=== PATIENT | male | born 1930 | race Caucasian/White ===

== ENCOUNTER 2017-05-10 10:26 | Emergency (ER) | payer MEDICARE ==
[2017-05-10] MEDS ORDERED: Sodium Chloride 0.9% 10 ML Syringe FLUSH PRN (10:39)
[2017-05-10] MEDS ORDERED: Aspirin 81 MG Tab.Chew PO ONE (10:44)
[2017-05-10 10:52] VITALS: BP 158/71
--- NOTE | 2017-05-10 11:39 | CR ---
Chest: Frontal view of the chest was obtained utilizing portable technique. Comparison: Previous portable chest x-ray of 11/02/16. Heart size is normal. Mild tortuosity of the thoracic aorta is seen. Lungs are clear. Sternotomy wires are seen. Minimal scar is seen within the left lung base. Impression: 1. Nothing acute is identified on frontal chest x-ray. Diagnostic code #2
--- NOTE | 2017-05-10 11:41 | EDM.PDOC ---
ED HPI GENERAL MEDICAL PROBLEM - General Chief Complaint: Chest Pain Stated Complaint: CHEST PAIN Time Seen by Provider: 05/10/17 10:37 Source of Information: Reports: Patient, RN Notes Reviewed - History of Present Illness INITIAL COMMENTS - FREE TEXT/NARRATIVE: 87-year-old male with left anterior chest discomfort this morning. It was moderate intensity for about 45 minutes and subsequently has been fairly mild. There has been no radiation of the pain. He does have history of coronary artery disease. He has not been coughing any more than usual. No recent fever or chills. No abdominal discomfort nausea vomiting or diaphoresis. He states he does get short of breath with exertion and also did have some shortness of breath this morning associated with the more severe discomfort. That now is better. Left Chest Pain Score (Numeric/FACES): 3 - Related Data Allergies Allergy/AdvReac Type Severity Reaction Status Date / Time meperidine HCl [From Demerol] Allergy Cannot Verified 05/10/17 10:29 Remember Home Meds: Home Meds Albuterol [Ventolin HFA] 2 puff INH Q4H PRN 05/10/17 [History] Aspirin [Halfprin] 81 mg PO DAILY 05/10/17 [History] Desipramine HCl 75 mg PO DAILY 05/10/17 [History] Finasteride 5 mg PO DAILY 05/10/17 [History] Galantamine Hbr [Galantamine HBr] 8 mg PO BID 05/10/17 [History] Isosorbide Mononitrate [Isosorbide Mononitrate ER] 30 mg PO DAILY 05/10/17 [ History] Levothyroxine 75 mcg PO ACBREAKFAST 05/10/17 [History] Lisinopril 20 mg PO DAILY 05/10/17 [History] Metoprolol Succinate 50 mg PO DAILY 05/10/17 [History] Rosuvastatin Calcium 10 mg PO DAILY 05/10/17 [History] Tamsulosin HCl 0.4 mg PO BID 05/10/17 [History] Timolol Maleate [Timoptic 0.5% Ophth Soln] 5 ml EYELF DAILY 05/10/17 [History] Zolpidem [Ambien] 5 mg PO BEDTIME PRN 05/10/17 [History] amLODIPine [Norvasc] 10 mg PO DAILY 05/10/17 [History] Past Medical History HEENT History: Reports: Cataract, Impaired Vision Other HEENT History: glasses Cardiovascular History: Reports: Bypass, CAD, High Cholesterol, Hypertension, Stents Respiratory History: Reports: COPD Gastrointestinal History: Reports: GI Bleed Genitourinary History: Reports: BPH, Chronic Renal Insuffiency, Urinary Incontinence Musculoskeletal History: Reports: Back Pain, Chronic, Osteoarthritis Neurological History: Reports: Alzheimers Disease Psychiatric History: Reports: Dementia Hematologic History: Reports: Blood Transfusion(s) - Infectious Disease History Infectious Disease History: Reports: Chicken Pox, Measles, Mumps - Past Surgical History Cardiovascular Surgical History: Reports: Coronary Artery Bypass Musculoskeletal Surgical History: Reports: Knee Replacement Social & Family History - Family History Family Medical History: Noncontributory - Tobacco Use Smoking Status *Q: Former Smoker Years of Tobacco use: 10 Packs/Tins Daily: 1 Used Tobacco, but Quit: Yes Month Tobacco Last Used: 1952 Second Hand Smoke Exposure: No - Caffeine Use Caffeine Use: Reports: Coffee - Alcohol Use Days Per Week of Alcohol Use: 3 Number of Drinks Per Day: 1 Total Drinks Per Week: 3 - Recreational Drug Use Recreational Drug Use: No - Living Situation & Occupation Living situation: Reports: Occupation: Retired ED ROS GENERAL - Review of Systems Review Of Systems: See Below Constitutional: Denies: Fever, Chills, Diaphoresis HEENT: Denies: Throat Pain Respiratory: Reports: Shortness of Breath. Denies: Cough (Now better) Cardiovascular: Reports: Chest Pain. Denies: Palpitations (L better), Syncope GI/Abdominal: Denies: Abdominal Pain, Nausea, Vomiting Musculoskeletal: Denies: Neck Pain, Shoulder Pain, Arm Pain, Joint Swelling Skin: Reports: No Symptoms Neurological: Reports: Dizziness (Mild, now better). Denies: Trouble Speaking, Difficulty Walking ED EXAM, GENERAL - Physical Exam Exam: See Below General Appearance: Alert, No Apparent Distress Eye Exam: Bilateral Eye: PERRL Throat/Mouth: Normal Inspection, Normal Oropharynx Head: Atraumatic. No: Facial Swelling Neck: Supple, Full Range of Motion Respiratory/Chest: No Respiratory Distress, Lungs Clear, Normal Breath Sounds, Chest Non-Tender Cardiovascular: Regular Rate, Rhythm GI/Abdominal: Soft, Non-Tender. No: Guarding Back Exam: No: CVA Tenderness (L), CVA Tenderness (R) Extremities: Normal Inspection. No: Leg Pain, Redness Neurological: Alert, Oriented, No Motor/Sensory Deficits Skin Exam: Warm, Dry, Normal Color Course - Vital Signs Last Recorded V/S: Last Vital Signs Temp 97.4 F 05/10/17 10:32 Pulse 56 L 05/10/17 15:19 Resp 18 05/10/17 15:19 BP 158/71 H 05/10/17 10:52 Pulse Ox 20 L 05/10/17 15:19 - Orders/Labs/Meds Orders: Active Orders 24 hr Category Date Time Status EKG 12 Lead [EKG Documentation Completion] [RC] STAT Care 05/10/17 10:39 Active Peripheral IV Care [RC] . DIRECTED Care 05/10/17 10:39 Active Peripheral IV Insertion Adult [OM.PC] Stat Oth 05/10/17 10:39 Ordered Labs: Laboratory Tests 05/10/17 05/10/17 05/10/17 Range/Units 10:58 10:58 10:58 WBC 8.37 (4.23-9.07) K/mm3 RBC 3.60 L (4.63-6.08) M/mm3 Hgb 12.4 L (13.7-17.5) gm/L Hct 38.8 L (40.1-51.0) % MCV 107.8 H (79.0-92.2) fl MCH 34.4 H (25.7-32.2) pg MCHC 32.0 L (32.2-35.5) g/dl RDW Std Deviation 57.0 H (35.1-43.9) fL Plt Count 164 (163-337) K/mm3 MPV 10.9 (9.4-12.3) fl Neut % (Auto) 30.2 L (34.0-67.9) % Lymph % (Auto) 66.9 H (21.8-53.1) % [place] % (Auto) 2.2 L (5.3-12.2) % Eos % (Auto) 0.4 L (0.8-7.0) Baso % (Auto) 0.1 (0.1-1.2) % Neut # (Auto) 2.53 (1.78-5.38) K/mm3 Lymph # (Auto) 5.60 H (1.32-3.57) K/mm3 [place] # (Auto) 0.18 L (0.30-0.82) K/mm3 Eos # (Auto) 0.03 L (0.04-0.54) K/mm3 Baso # (Auto) 0.01 (0.01-0.08) K/mm3 Manual Slide Review Abnormal smear Sodium 140 (136-145) mEq/L Potassium 3.9 (3.5-5.1) mEq/L Chloride 103 (98-107) mEq/L Carbon Dioxide 29 (21-32) mEq/L Anion Gap 11.9 (5-15) BUN 16 (7-18) mg/dL Creatinine 1.1 (0.7-1.3) mg/dL Est Cr Clr Drug Dosing TNP Estimated GFR (MDRD) > 60 (>60) mL/min BUN/Creatinine Ratio 14.5 (14-18) Glucose 134 H (83-115) mg/dL Calcium 9.0 (8.5-10.1) mg/dL Total Bilirubin 0.4 (0.2-1.0) mg/dL AST 17 (15-37) U/L ALT 18 (16-63) U/L Alkaline Phosphatase 94 (46-116) U/L Troponin I 0.025 (0.00-0.056) ng/mL B-Natriuretic Peptide 191 H (0-100) pg/mL Total Protein 7.1 (6.4-8.2) g/dl Albumin 3.4 (3.4-5.0) g/dl Globulin 3.7 gm/dL Albumin/Globulin Ratio 0.9 L (1-2) 05/10/17 Range/Units 13:36 WBC (4.23-9.07) K/mm3 RBC (4.63-6.08) M/mm3 Hgb (13.7-17.5) gm/L Hct (40.1-51.0) % MCV (79.0-92.2) fl MCH (25.7-32.2) pg MCHC (32.2-35.5) g/dl RDW Std Deviation (35.1-43.9) fL Plt Count (163-337) K/mm3 MPV (9.4-12.3) fl Neut % (Auto) (34.0-67.9) % Lymph % (Auto) (21.8-53.1) % [place] % (Auto) (5.3-12.2) % Eos % (Auto) (0.8-7.0) Baso % (Auto) (0.1-1.2) % Neut # (Auto) (1.78-5.38) K/mm3 Lymph # (Auto) (1.32-3.57) K/mm3 [place] # (Auto) (0.30-0.82) K/mm3 Eos # (Auto) (0.04-0.54) K/mm3 Baso # (Auto) (0.01-0.08) K/mm3 Manual Slide Review Sodium (136-145) mEq/L Potassium (3.5-5.1) mEq/L Chloride (98-107) mEq/L Carbon Dioxide (21-32) mEq/L Anion Gap (5-15) BUN (7-18) mg/dL Creatinine (0.7-1.3) mg/dL Est Cr Clr Drug Dosing Estimated GFR (MDRD) (>60) mL/min BUN/Creatinine Ratio (14-18) Glucose (83-115) mg/dL Calcium (8.5-10.1) mg/dL Total Bilirubin (0.2-1.0) mg/dL AST (15-37) U/L ALT (16-63) U/L Alkaline Phosphatase (46-116) U/L Troponin I 0.021 (0.00-0.056) ng/mL B-Natriuretic Peptide (0-100) pg/mL Total Protein (6.4-8.2) g/dl Albumin (3.4-5.0) g/dl Globulin gm/dL Albumin/Globulin Ratio (1-2) Meds: Medications Discontinued Medications Generic Name Dose Route Start Last Admin Trade Name Freq PRN Reason Stop Dose Admin Aspirin 324 mg 05/10/17 10:44 05/10/17 10:56 Aspirin PO 05/10/17 10:45 324 mg ONETIME ONE Administration Sodium Chloride 10 ml 05/10/17 10:39 05/10/17 10:58 Saline Flush FLUSH 10 ml ASDIRECTED PRN Administration Keep Vein Open - Re-Assessments/Exams Free Text/Narrative Re-Assessment/Exam: 05/10/17 13:22 Initial troponin came in at 0.025. He's been resting comfortably while here in the ED awaiting lab work. Chest x-ray unremarkable. We'll do a repeat troponin. 05/10/17 14:34 Repeat troponin 0.021. He probably does have a small troponin leak. He is been in sinus rhythm, occasional PVCs. Blood pressures been good. He continues to be pain-free while here in the ED. Therefore we will discharge him home at this time. Discharge instructions as documented Departure - Departure Time of Disposition: 14:36 Disposition: Home, Self-Care 01 Condition: Fair Clinical Impression: Atypical chest pain Instructions: Chest Wall Pain, [id number] Referrals: Steve Reynolds MD [Primary Care Provider] - Forms: ED Department Discharge Additional Instructions: Rest, drink plenty of water to maintain hydration, continue current medications as prescribed, follow up with Dr. Reynolds later this week or early next week. Call clinic for appointment. Return to ED if symptoms worsening in any way - My Orders Last 24 Hours: My Active Orders 05/10/17 10:39 EKG 12 Lead [EKG Documentation Completion] [RC] STAT Peripheral IV Care [RC] . DIRECTED Peripheral IV Insertion Adult [OM.PC] Stat - Assessment/Plan Last 24 Hours: My Active Orders 05/10/17 10:39 EKG 12 Lead [EKG Documentation Completion] [RC] STAT Peripheral IV Care [RC] . DIRECTED Peripheral IV Insertion Adult [OM.PC] Stat
== END 2017-05-10 14:58 | disposition home or self-care (01) ==
LOC: JD.ED 10:26 → SUPCPDRO 10:26 → JD.ED 14:58
DX: R07.89 Other chest pain (principal); I12.9 Hypertensive chronic kidney disease with stage 1 through stage 4 chronic kidney disease, or unspecified chronic kidney disease; N18.9 Chronic kidney disease, unspecified; I25.10 Atherosclerotic heart disease of native coronary artery without angina pectoris; J44.9 Chronic obstructive pulmonary disease, unspecified; G30.9 Alzheimer's disease, unspecified; F02.80 Dementia in other diseases classified elsewhere, unspecified severity, without behavioral disturbance, psychotic disturbance, mood disturbance, and anxiety; M19.90 Unspecified osteoarthritis, unspecified site; Z95.1 Presence of aortocoronary bypass graft; Z96.659 Presence of unspecified artificial knee joint; Z87.891 Personal history of nicotine dependence; Z79.899 Other long term (current) drug therapy; Z79.82 Long term (current) use of aspirin; Z88.6 Allergy status to analgesic agent
CPT/HCPCS: 36415; 71010; 80053; 83880; 84484; 85025; 93005; 99285; A9270; J7050; 99284

== ENCOUNTER 2017-08-16 07:09 | Day surgery (SDC) | payer MEDICARE ==
[~2017-08-16 07:09] MED LIST: Lactated Ringers 1,000 ML IV SCH; Lidocaine 1%/Sod Bicarbonate in NS 8.4% 1 ML Syringe IV PRN; Sodium Chloride 0.9% 10 ML Syringe FLUSH PRN
[2017-08-16] MEDS ORDERED: Lidocaine 1% 30 ML SDV ONE (07:11)
[2017-08-16] MEDS ORDERED: Heparin Sodium 5,000 Units/ML Vial ONE (07:11)
[2017-08-16] MEDS ORDERED: Propofol 200 MG/20 ML SDV ONE (07:42)
[2017-08-16] MEDS ORDERED: Lidocaine 1% 4 ML ONE (07:42)
[2017-08-16] MEDS ORDERED: fentaNYL 100 MCG/2 ML SDV ONE (07:42)
--- NOTE | 2017-08-16 07:42 | PCM.PREANE ---
Preanesthetic Assessment - Anesthesia/Transfusion/Family Hx Anesthesia History: Prior Anesthesia Without Reaction Family History of Anesthesia Reaction: No Transfusion History: No Prior Transfusion(s) - Review of Systems General: Fatigue Pulmonary: Shortness of Breath Cardiovascular: Chest Pain (indigestion) Gastrointestinal: Abdominal Pain (sometimes) Neurological: Seizure (apparently from Demerol), Other (dementia) Other: Reports: None, Thyroid Problems, Anxiety - Physical Assessment NPO Status Date: 08/15/17 (sip with pills this am) NPO Status Time: 11:59 Pulse: 57 O2 Sat by Pulse Oximetry: 93 Respiratory Rate: 16 Blood Pressure: 151/59 Temperature: 98.6 F Height: 5 ft 6 in Weight: 81.647 kg ASA Class: 3 Mental Status: Alert & Oriented x3 Airway Class: Mallampati = 1 Dentition: Reports: Dentures (top), Broken Tooth/Teeth, Missing Tooth/Teeth Thyro-Mental Finger Breadths: 3 Mouth Opening Finger Breadths: 3 ROM/Head Extension: Full Lungs: Clear to Auscultation, Normal Respiratory Effort Cardiovascular: Regular Rate, Regular Rhythm - Lab Values: 08/03 BUN 18 Cr 1.06 Lytes WNL HGB 11.2 PLT 106 - Imaging/EKG Impressions: 01/01 echo- EF 40% 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 - Allergies Allergies/Adverse Reactions: Allergies Allergy/AdvReac Type Severity Reaction Status Date / Time meperidine HCl [From Demerol] Allergy Cannot Verified 08/13/17 11:45 Remember - Blood Blood Available: No - Anesthesia Plan Beta Treasure: Metoprolol Med Last Dose Date: 08/16/17 Med Last Dose Time: 06:00 - Acknowledgements Anesthesia Type Planned: MAC Pt an Appropriate Candidate for the Planned Anesthesia: Yes Alternatives and Risks of Anesthesia Discussed w Pt/Guardian: Yes Pt/Guardian Understands and Agrees with Anesthesia Plan: Yes PreAnesthesia Questionnaire HEENT History: Reports: Cataract, Impaired Vision Other HEENT History: glasses and dentures Cardiovascular History: Reports: Bypass, CAD, Heart Failure, High Cholesterol, Hypertension, SC, Stents Respiratory History: Reports: COPD, Sleep Apnea Gastrointestinal History: Reports: GI Bleed Genitourinary History: Reports: BPH, Chronic Renal Insuffiency, Urinary Incontinence [employer] History: Reports: None Musculoskeletal History: Reports: Back Pain, Chronic, Osteoarthritis Neurological History: Reports: Alzheimers Disease, Seizure (denies) Psychiatric History: Reports: Dementia Other Psychiatric History: insomnia Endocrine/Metabolic History: Reports: Hypothyroidism Hematologic History: Reports: Blood Transfusion(s) Immunologic History: Reports: None Oncologic (Cancer) History: Reports: None Dermatologic History: Reports: Other (See Below) Other Dermatologic History: right latter day skin lesion - Infectious Disease History Infectious Disease History: Reports: Chicken Pox, Measles, Mumps - Past Surgical History Head Surgeries/Procedures: Reports: None HEENT Surgical History: Reports: Adenoidectomy, Tonsillectomy Cardiovascular Surgical History: Reports: Coronary Artery Bypass Respiratory Surgical History: Reports: None GI Surgical History: Reports: Appendectomy, Colonoscopy, EGD, Hernia Repair/ Other Female Surgical History: Reports: None Male Surgical History: Reports: None Neurological Surgical History: Reports: None Musculoskeletal Surgical History: Reports: Knee Replacement Other Musculoskeletal Surgeries/Procedures:: right knee Oncologic Surgical History: Reports: None - SUBSTANCE USE Smoking Status *Q: Former Smoker Tobacco Use Within Last Twelve Months: Cigarettes Second Hand Smoke Exposure: No Days Per Week of Alcohol Use: 3 Number of Drinks Per Day: 1 Total Drinks Per Week: 3 Recreational Drug Use History: No - HOME MEDS Home Medications: Home Meds Albuterol [Ventolin HFA] 2 puff INH Q4H PRN 05/10/17 [History] Aspirin [Halfprin] 81 mg PO DAILY 05/10/17 [History] Isosorbide Mononitrate [Isosorbide Mononitrate ER] 30 mg PO DAILY 05/10/17 [ History] Lisinopril 20 mg PO DAILY 05/10/17 [History] Metoprolol Succinate 50 mg PO DAILY 05/10/17 [History] Tamsulosin HCl 0.4 mg PO BID 05/10/17 [History] Timolol Maleate [Timoptic 0.5% Ophth Soln] 1 drop EYELF DAILY 05/10/17 [History] amLODIPine [Norvasc] 10 mg PO DAILY 05/10/17 [History] Desipramine HCl [Norpramin] 75 mg PO BEDTIME 08/13/17 [History] Durezol 1 drop EYEBOTH QID 08/13/17 [History] Galantamine Hbr [Razadyne] 8 mg PO BID 08/13/17 [History] Levothyroxine [Synthroid] 88 mcg PO DAILY 08/13/17 [History] Nitroglycerin [Nitrostat] 0.4 mg SL Q5M PRN 08/13/17 [History] Nystatin [Nystatin Crm] 1 applic TOP BID PRN 08/13/17 [History] - CURRENT (IN HOUSE) MEDS Current Meds: Current Medications Lactated Ringer's (Ringers, Lactated) 1,000 mls @ 125 mls/hr IV ASDIRECTED GANGA Stop: 08/16/17 23:00 Lidocaine/Sodium Bicarbonate (Buffered Lidocaine 1% In Ns 8.4%) 0.25 ml IV ONETIME PRN PRN Reason: Prior to IV Start Stop: 08/16/17 18:00 Sodium Chloride (Saline Flush) 10 ml FLUSH ASDIRECTED PRN PRN Reason: Keep Vein Open Stop: 08/16/17 18:00 Discontinued Medications Fentanyl (Sublimaze) Confirm Administered Dose 100 mcg .ROUTE .STK-MED ONE Stop: 08/16/17 07:43 Heparin Sodium (Porcine) (Heparin Sodium) Confirm Administered Dose 5,000 units .ROUTE .STK-MED ONE Stop: 08/16/17 07:12 Lidocaine HCl (Xylocaine-Mpf 1%) Confirm Administered Dose 4 mls @ as directed .ROUTE .STK-MED ONE Stop: 08/16/17 07:43 Lidocaine HCl (Xylocaine-Mpf 1%) Confirm Administered Dose 30 ml .ROUTE .STK- MED ONE Stop: 08/16/17 07:12 Propofol (Diprivan 20 Ml) Confirm Administered Dose 200 mg .ROUTE .STK-MED ONE Stop: 08/16/17 07:43
--- NOTE | 2017-08-16 08:44 | PCM.OPNOTE ---
- General Post-Op/Procedure Note Date of Surgery/Procedure: 08/16/17 Operative Procedure(s): bone marrow bx and aspiration Pre Op Diagnosis: CLL Post-Op Diagnosis: Same Anesthesia Technique: MAC Primary Surgeon: Sanya Douglass EBL in mLs: 10 Complications: None Condition: Good
[2017-08-16] MEDS ORDERED: Ondansetron 4 MG/2 ML SDV IVPUSH PRN (08:45)
--- NOTE | 2017-08-16 08:45 | PCM48HPAN ---
Post Anesthesia Note - EVALUATION WITHIN 48HRS OF ANESTHETIC Vital Signs in Normal Range: Yes Patient Participated in Evaluation: Yes Respiratory Function Stable: Yes (O2 at 1 L until more awake. ) Airway Patent: Yes Cardiovascular Function Stable: Yes Hydration Status Stable: Yes Pain Control Satisfactory: Yes Nausea and Vomiting Control Satisfactory: Yes Mental Status Recovered: Yes
[2017-08-16 08:49] VITALS: BP 108/52
--- NOTE | 2017-08-16 14:48 | OR ---
DATE OF OPERATION: 08/16/2017 SURGEON: Sanya Douglass MD PREOPERATIVE DIAGNOSIS: Chronic lymphocytic leukemia. POSTOPERATIVE DIAGNOSIS: Chronic lymphocytic leukemia. OPERATION PERFORMED: Bone marrow aspirate and biopsy done under IV sedation, local anesthetic, and 1% Xylocaine. DESCRIPTION OF PROCEDURE: The patient was taken to the endoscopy room, placed in the left lateral position after IV sedation was given and connected to monitoring equipment. The area in question and posterior iliac spine was identified by palpation. The skin over this was prepped with sterile prep and draped off in a sterile fashion. Incision was made after local anesthetic was applied and Jamshidi needle was then inserted into the spine, and a bone marrow biopsy was 1st taken, but the tap was dry, another incision was made, and the needle was placed in a little more superior position and was able to get a good aspirate. This was aspirated in a previously prepared heparinized syringe. Pressure was then placed on the area and the patient tolerated the procedure and sent to recovery room in a stable condition. ANESTHESIA: ESTIMATED BLOOD LOSS: 10 mL. MMODAL /[id number]
== END 2017-08-16 09:30 | disposition home or self-care (01) ==
LOC: JD.SDS 07:09
PROVIDERS: ATTEND Surgery
DX: C91.10 Chronic lymphocytic leukemia of B-cell type not having achieved remission (principal); I10 Essential (primary) hypertension; E03.9 Hypothyroidism, unspecified; I50.9 Heart failure, unspecified; I25.2 Old myocardial infarction; Z95.5 Presence of coronary angioplasty implant and graft; Z88.8 Allergy status to other drugs, medicaments and biological substances; Z90.49 Acquired absence of other specified parts of digestive tract; Z98.890 Other specified postprocedural states; Z79.82 Long term (current) use of aspirin; Z79.899 Other long term (current) drug therapy; Z87.891 Personal history of nicotine dependence
CPT/HCPCS: 36415; 38221; 85007; 85025; 85027; 85045; 88184; 88185; 88237; 88264; 88285; 88305; 88311; 88313; 88342; J1644; J3010; J7120; 01112; J2704

== ENCOUNTER 2017-10-14 10:52 | Inpatient (IN) | payer MEDICARE ==
[2017-10-14] MEDS ORDERED: Albuterol 6.7 GM Inhaler INH PRN (12:21)
[2017-10-14] MEDS ORDERED: Non-Formulary Medication 1 Each (Nitroglycerin [Nitrostat] 0.4 MG) SL PRN (12:21)
[2017-10-14] MEDS ORDERED: Non-Formulary Medication 1 Each (Nystatin 1 APPLIC) TOP PRN (12:21)
[2017-10-14] MEDS ORDERED: Temazepam 15 MG Cap PO PRN ×2 (12:22→18:41)
[2017-10-14] MEDS ORDERED: Promethazine 12.5 MG in Sodium Chloride 0.9% 50 ML IV PRN (12:22)
[2017-10-14] MEDS ORDERED: Acetaminophen/HYDROcodone 325-5 MG Tab PO PRN (12:22)
[2017-10-14] MEDS ORDERED: Albuterol/Ipratropium 3.0-0.5 MG/3 ML Neb Soln NEB PRN (12:22)
[2017-10-14] MEDS ORDERED: Docusate Sodium 100 MG Cap PO PRN (12:22)
[2017-10-14] MEDS ORDERED: LORazepam 2 MG/ML SDV IV PRN (12:22)
[2017-10-14] MEDS ORDERED: HYDROmorphone 0.5 MG/0.5 ML Syringe IVPUSH PRN (12:22)
[2017-10-14] MEDS ORDERED: Ondansetron 4 MG/2 ML SDV IV PRN (12:22)
[2017-10-14] MEDS ORDERED: Bisacodyl 5 MG Tab PO PRN (12:22)
[2017-10-14] MEDS ORDERED: Acetaminophen 325 MG Tab PO PRN (12:22)
[2017-10-14] MEDS ORDERED: Polyethylene Glycol 3350 Powder 17 GM Packet PO PRN (12:22)
[2017-10-14] MEDS ORDERED: Levofloxacin/Dextrose 5%-Water 500 MG in Premix Bag 1 BAG IV ONE (12:43)
[2017-10-14] MEDS ORDERED: hydrALAZINE 20 MG/ML SDV IVPUSH PRN (12:45)
[2017-10-14] MEDS ORDERED: Metoprolol Tartrate 5 MG/5 ML SDV IVPUSH PRN (12:45)
[2017-10-14] MEDS ORDERED: Saccharomyces Boulardii (Probiotic) 250 MG Cap PO STA (12:45)
[2017-10-14] MEDS ORDERED: Vancomycin 1 GM, Vancomycin 500 MG in Sodium Chloride 0.9% 500 ML IV SCH (12:45)
[2017-10-14] MEDS: DUREZOL EYEBOTH SCH ×3 (14:33→20:50)
[2017-10-14] MEDS: Sodium Chloride 0.9% 1,000 ML IV SCH (14:38)
[2017-10-14] MEDS: Levofloxacin/Dextrose 5%-Water 500 MG in Premix Bag 1 BAG IV SCH (14:38)
[2017-10-14] MEDS: Saccharomyces Boulardii (Probiotic) 250 MG Cap PO SCH (14:38)
--- NOTE | 2017-10-14 15:12 | PCM.HP ---
<Valdemar Aquino - Last Filed: 10/14/17 15:49> H&P History of Present Illness - General Date of Service: 10/14/17 Source of Information: Patient, Old Records, Provider, RN, RN Notes Reviewed History Limitations: Reports: No Limitations - History of Present Illness Initial Comments - Free Text/Narative: Gwyn Barraza is an 87 yo male who was evaluated by Dr. Douglass today at [facility] for inflammation of the columnella on the nose. He was reportedly seen in clinic last week for this and also anemia, with a Hgb of 6. A MRSA screen was done, which was negative, and he was prescribed cipro and mupirocin ointment. He was seen by Dr. Reynolds for follow-up, who felt the nose was getting worse and referred him to Dr. Douglass, general surgeon. During his exam some ulceration and necrosis of the columnella were noted however the erythema of the nasal tip improved and his WBC decreased from 25,000 to 18,000. A punch biopsy was obtained by Dr. Douglass and is pending. It is reported that Dr. Douglass contacted Dr. Mcdermott, ENT, and they decided that the patient has failed outpatient treatment and should be hospitalized for IV antibiotics. This was also reportedly discussed with the patient and he agrees to the plan. Labs were obtained at [place] today: WBC 18.7. Hemoglobin 9.0. Hematocrit 30.0. He is macrocytic at 107.1. Platelet counts are low at 90. Neutrophils are elevated at 16.8 and some atypical lymphocytes are seen on the smear. Glucose is 105. BUN 15. Creatinine 1.0. EGFR is 70. Sodium is 141. Potassium 4.2. Chloride 104. CO2 is 27. Anion gap with potassium is 14. Calcium 9.1. 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 The note is somewhat confusing as there are multiple stages listed, however Dr. 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 He notes symptoms of fatigue, insomnia, and some lymph nodes in his neck. A CT scan was obtained on 02/08/[address] Taylor as: No significant change in cervical with lymphadenopathy and supraclavicular lymphadenopathy. Unfortunately, prior chest CTs are not available for comparison. However, significant axillary lymphadenopathy is noted bilaterally with associated mediastinal adenopathy. Marked increase in bulky adenopathy is noted within the retroperitoneum and mesentery since the prior examination of . Stable right renal mass lesions. Enlarged inguinal lymph nodes that contained fatty sugey. Pelvic lymphadenopathy. No osseous lesions. Benign- appearing cysts are noted on the left kidney. He carries a history of: CAD, CHF, HTN, insomnia, HLD, Alzheimer's dementia, lumbar disc herniation with radiculopathy, see Monica stage II, renal cell cancer , hypothyroidism, ischemic colitis, anemia due to GI blood loss, ROSSY, BPH with lower urinary tract symptoms, COPD. He subsequently admitted to the medical floor. His code status is DNR/DNI. His PCP is Dr. Reynolds, although Dr. Douglass has seen him most recently for this condition. As noted he is also followed closely by Dr. Romero for his lymphoma. - Related Data Allergies/Adverse Reactions: Allergies Allergy/AdvReac Type Severity Reaction Status Date / Time meperidine HCl [From Demerol] Allergy Cannot Verified 08/13/17 11:45 Remember Home Medications: Home Meds Isosorbide Mononitrate [Isosorbide Mononitrate ER] 30 mg PO DAILY 05/10/17 [ History] Lisinopril 10 mg PO DAILY 05/10/17 [History] Metoprolol Succinate 50 mg PO DAILY 05/10/17 [History] Tamsulosin HCl 0.4 mg PO BID 05/10/17 [History] Timolol Maleate [Timoptic 0.5% Ophth Soln] 1 drop EYELF DAILY 05/10/17 [History] amLODIPine [Norvasc] 10 mg PO DAILY 05/10/17 [History] Desipramine HCl [Norpramin] 75 mg PO BEDTIME 08/13/17 [History] Levothyroxine [Synthroid] 88 mcg PO DAILY 08/13/17 [History] Albuterol Sulfate [Proair Hfa] 2 puff INH Q4HR PRN 10/14/17 [History] Ciprofloxacin [Ciprofloxacin HCl] 250 mg PO BID 10/14/17 [History] Galantamine Hbr [Galantamine HBr] 8 mg PO BID 10/14/17 [History] Mupirocin Oint [Bactroban Oint] 22 gm TOP BID 10/14/17 [History] Ondansetron [Zofran] 4 mg PO Q4H PRN 10/14/17 [History] Temazepam 15 mg PO BEDTIME PRN 10/14/17 [History] Past Medical History HEENT History: Reports: Cataract, Impaired Vision Other HEENT History: glasses and dentures Cardiovascular History: Reports: Bypass, CAD, Heart Failure, High Cholesterol, Hypertension, NH, Stents Other Cardiovascular History: NH yrs ago Respiratory History: Reports: COPD, Sleep Apnea Gastrointestinal History: Reports: GI Bleed Genitourinary History: Reports: BPH, Chronic Renal Insuffiency, Urinary Incontinence [employer] History: Reports: None Musculoskeletal History: Reports: Back Pain, Chronic, Osteoarthritis Neurological History: Reports: Alzheimers Disease, Seizure Psychiatric History: Reports: Dementia Other Psychiatric History: insomnia Endocrine/Metabolic History: Reports: Hypothyroidism Hematologic History: Reports: Blood Transfusion(s) Immunologic History: Reports: None Oncologic (Cancer) History: Reports: None Dermatologic History: Reports: Other (See Below) Other Dermatologic History: right restoration skin lesion - Infectious Disease History Infectious Disease History: Reports: HWO-Nxapvcigac-Dacvsahlr Enterobacteriaceae , Measles, Mumps - Past Surgical History Head Surgeries/Procedures: Reports: None HEENT Surgical History: Reports: Adenoidectomy, Tonsillectomy Cardiovascular Surgical History: Reports: Coronary Artery Bypass Respiratory Surgical History: Reports: None GI Surgical History: Reports: Appendectomy, Colonoscopy, EGD, Hernia Repair/ Other Male Surgical History: Reports: None Neurological Surgical History: Reports: None Musculoskeletal Surgical History: Reports: Knee Replacement Other Musculoskeletal Surgeries/Procedures:: right knee Oncologic Surgical History: Reports: None Social & Family History - Family History Family Medical History: Noncontributory - Tobacco Use Smoking Status *Q: Never Smoker Years of Tobacco use: 10 Packs/Tins Daily: 1 Used Tobacco, but Quit: Yes Month Tobacco Last Used: 1952 Second Hand Smoke Exposure: No - Caffeine Use Caffeine Use: Reports: Coffee, Tea - Alcohol Use Days Per Week of Alcohol Use: 3 Number of Drinks Per Day: 1 Total Drinks Per Week: 3 - Recreational Drug Use Recreational Drug Use: No - Living Situation & Occupation Living situation: Reports: Occupation: Retired H&P Review of Systems - Review of Systems: Review Of Systems: See Below General: Reports: No Symptoms. Denies: Fever, Chills, Malaise, Weakness, Fatigue HEENT: Reports: No Symptoms, Headaches (mild that comes and goes ). Denies: Dysphasia, Ear Pain, Eye Pain, Hearing Changes, Rhinitis, Post Nasal Drip, Sore Throat, Vertigo Pulmonary: Reports: No Symptoms, Shortness of Breath (baseline ), Cough (mild ) , Sputum. Denies: Wheezing, Pleuritic Chest Pain Cardiovascular: Reports: No Symptoms. Denies: Chest Pain, Palpitations, Dyspnea on Exertion, Edema, Lightheadedness Gastrointestinal: Reports: No Symptoms. Denies: Abdominal Pain, Constipation, Diarrhea, Difficulty Swallowing, Nausea, Vomiting Genitourinary: Reports: No Symptoms. Denies: Dysuria, Frequency, Burning, Pain , Urgency Musculoskeletal: Reports: No Symptoms. Denies: Neck Pain, Shoulder Pain, Back Pain, Joint Pain, Joint Swelling Skin: Reports: No Symptoms Psychiatric: Reports: No Symptoms Neurological: Reports: No Symptoms Hematologic/Lymphatic: Reports: Anemia. Denies: Easy Bleeding, Easy Bruising Immunologic: Reports: No Symptoms Exam - Exam Exam: See Below - Vital Signs Vital Signs: Last Vital Signs Temp 97.5 F 10/14/17 11:12 Pulse 46 L 10/14/17 11:28 Resp 16 10/14/17 11:12 BP 130/53 L 10/14/17 11:28 Pulse Ox 97 10/14/17 12:30 Weight: 80.422 kg - Exam Quality Assessment: DVT Prophylaxis General: Alert, Oriented, Cooperative. No: Mild Distress HEENT: Conjunctiva Clear, EACs Clear, EOMI, Hearing Intact, Mucosa Moist & [place] , Nares Patent, Normal Nasal Septum, Posterior Pharynx Clear, Other (edema and erythema to tip of nose. Sutures in place from prior punch biopsy. Dried blood and drainage noted in right nostril. Tender to palpation. ), PERRLA Neck: Supple, Trachea Midline, Lymphadenopathy (blateral with left>right ). No : JVD, Thyromegaly Lungs: Clear to Auscultation, Normal Respiratory Effort. No: Crackles, Rales, Rhonchi, Rub, Stridor, Wheezing Cardiovascular: Regular Rate, Regular Rhythm GI/Abdominal Exam: Normal Bowel Sounds, Soft, No Distention, No Abnormal Bruit, No Mass, Pelvis Stable, Tender (Upper quadrants and LLQ. ) (Male) Exam: Deferred Rectal (Males) Exam: Deferred Back Exam: Full Range of Motion, CVA Tenderness (R) Extremities: Normal Inspection, Normal Range of Motion, Non-Tender, No Pedal Edema, Normal Capillary Refill Peripheral Pulses: 2+: Posterior Tibial (L), Posterior Tibial (R), Dorsalis Pedis (L), Dorsalis Pedis (R), 3+: Radial (L), Radial (R) Skin: Warm, Dry, Intact, Wound (erythema and edema to tip of nose. Sutures in place on tip of nose from biopsy. ) Neurological: Cranial Nerves Intact (Grossly) Neuro Extensive - Mental Status: Alert, Oriented x3, Normal Mood/Affect, Normal Cognition, Memory Intact Neuro Extensive - Motor, Sensory, Reflexes: CN II-XII Intact (Grossly) Psychiatric: Alert, Normal Affect, Normal Mood - Patient Data Lab Results Last 24 hrs: Laboratory Results - last 24 hr 10/14/17 Range/Units 12:50 C-Reactive Protein < 0.2 (<1.0) mg/dL *Q Meaningful Use (ADM) - VTE *Q VTE Criteria *Q: - Stroke *Q Stroke Criteria *Q: - AMI *Q AMI Criteria *Q: - Problem List (1) Nasal abscess SNOMED Code(s): 4343123 ICD Code: J34.0 - ABSCESS, FURUNCLE AND CARBUNCLE OF NOSE Status: Acute Priority: High Current Visit: Yes (2) Lymphoma SNOMED Code(s): 489529496 ICD Code: C85.90 - NON-HODGKIN LYMPHOMA, UNSPECIFIED, UNSPECIFIED SITE Status: Acute Priority: Medium Current Visit: Yes QualifierTitle: Lymphoma type: unspecified type Lymphoma site: multiple regions Qualified Code(s): C85.98 - Non-Hodgkin lymphoma, unspecified, lymph nodes of multiple sites (3) CHF (congestive heart failure) SNOMED Code(s): 21247530 ICD Code: I50.9 - HEART FAILURE, UNSPECIFIED Status: Chronic Priority: Medium Current Visit: No QualifierTitle: Congestive heart failure type: unspecified congestive heart failure type Congestive heart failure chronicity: unspecified congestive heart failure chronicity Qualified Code(s): I50.9 - Heart failure, unspecified (4) HTN (hypertension) SNOMED Code(s): 14284305 ICD Code: I10 - ESSENTIAL (PRIMARY) HYPERTENSION Status: Chronic Priority : Low Current Visit: No QualifierTitle: Hypertension type: essential hypertension Qualified Code( s): I10 - Essential (primary) hypertension (5) Hypothyroid SNOMED Code(s): 81270919 ICD Code: E03.9 - HYPOTHYROIDISM, UNSPECIFIED Status: Chronic Priority: Low Current Visit: No QualifierTitle: Hypothyroidism type: acquired Qualified Code(s): E03.9 - Hypothyroidism, unspecified (6) Alzheimer disease SNOMED Code(s): 06064873 ICD Code: G30.9 - ALZHEIMER'S DISEASE, UNSPECIFIED Status: Acute Priority : Low Current Visit: No QualifierTitle: Alzheimer's disease onset: unspecified onset Dementia behavioral disturbance: without behavioral disturbance Qualified Code(s): G30.9 - Alzheimer's disease, unspecified; F02.80 - Dementia in other diseases classified elsewhere without behavioral disturbance; F02.80 - Dementia in other diseases classified elsewhere without behavioral disturbance; F02.80 - Dementia in other diseases classified elsewhere without behavioral disturbance (7) CAD (coronary artery disease) SNOMED Code(s): 92134305 ICD Code: I25.10 - ATHSCL HEART DISEASE OF [place] CORONARY ARTERY W/O ANG PCTRS Status: Chronic Priority: Low Current Visit: No QualifierTitle: Coronary Disease-Associated Artery/Lesion type: unspecified vessel or lesion type [place] vs. transplanted heart: [place] heart Associated angina: angina presence unspecified Qualified Code(s): I25.10 - Atherosclerotic heart disease of [place] coronary artery without angina pectoris (8) HLD (hyperlipidemia) SNOMED Code(s): 20710911 ICD Code: E78.5 - HYPERLIPIDEMIA, UNSPECIFIED Status: Chronic Priority: Low Current Visit: Yes QualifierTitle: Hyperlipidemia type: pure hypercholesterolemia Qualified Code(s): E78.00 - Pure hypercholesterolemia, unspecified; E78.0 - Pure hypercholesterolemia (9) Lumbar disc herniation with radiculopathy SNOMED Code(s): 065301142 ICD Code: M51.16 - INTERVERTEBRAL DISC DISORDERS W RADICULOPATHY, LUMBAR REGION Status: Chronic Priority: Low Current Visit: Yes (10) CKD (chronic kidney disease) stage 2, GFR 60-89 ml/min SNOMED Code(s): 977030412 ICD Code: N18.2 - CHRONIC KIDNEY DISEASE, STAGE 2 (MILD) Status: Chronic Priority: Medium Current Visit: Yes (11) Ischemic colitis SNOMED Code(s): 80171780 ICD Code: K55.9 - VASCULAR DISORDER OF INTESTINE, UNSPECIFIED Status: Chronic Priority: Low Current Visit: No (12) Iron deficiency anemia SNOMED Code(s): 14527996 ICD Code: D50.9 - IRON DEFICIENCY ANEMIA, UNSPECIFIED Status: Chronic Priority: Medium Current Visit: Yes QualifierTitle: Iron deficiency anemia type: unspecified iron deficiency Qualified Code(s): D50.9 - Iron deficiency anemia, unspecified (13) BPH (benign prostatic hyperplasia) SNOMED Code(s): 801069749 ICD Code: N40.0 - BENIGN PROSTATIC HYPERPLASIA WITHOUT LOWER URINRY TRACT SYMP Status: Chronic Priority: Low Current Visit: No QualifierTitle: Lower urinary tract symptom presence: unspecified whether lower urinary tract symptoms present Qualified Code(s): N40.0 - Benign prostatic hyperplasia without lower urinary tract symptoms (14) COPD (chronic obstructive pulmonary disease) SNOMED Code(s): 96200251 ICD Code: J44.9 - CHRONIC OBSTRUCTIVE PULMONARY DISEASE, UNSPECIFIED Status : Chronic Current Visit: No QualifierTitle: COPD type: unspecified COPD Qualified Code(s): J44.9 - Chronic obstructive pulmonary disease, unspecified (15) Anemia SNOMED Code(s): 345595245 ICD Code: D64.9 - ANEMIA, UNSPECIFIED Status: Chronic Priority: Medium Current Visit: Yes QualifierTitle: Anemia type: unspecified type Qualified Code(s): D64.9 - Anemia, unspecified (16) Thrombocytopenia SNOMED Code(s): 698540116 ICD Code: D69.6 - THROMBOCYTOPENIA, UNSPECIFIED Status: Chronic Priority : Medium Current Visit: Yes Problem List Initiated/Reviewed/Updated: Yes Orders Last 24hrs: Active Orders 24 hr Category Date Time Status Height and Weight [RC] 04 Care 10/14/17 12:22 Active Intake and Output [RC] 04,16 Care 10/14/17 12:30 Active Notify Provider Consults [RC] ASDIRECTED Care 10/14/17 12:33 Active Oxygen Therapy [RC] PRN Care 10/14/17 12:22 Active Pulse Oximetry [RC] PRN Care 10/14/17 12:30 Active RT Aerosol Therapy [RC] .PRN Care 10/14/17 12:31 Active Up With Assistance [RC] DAILY Care 10/14/17 12:22 Active Up ad Norma [RC] DAILY Care 10/14/17 12:22 Active VTE/DVT Education [RC] BID Care 10/14/17 12:22 Active Vital Signs [RC] 00,04,08,12,16,20 Care 10/14/17 12:22 Active Consult to Physician [CONS] Routine Cons 10/14/17 12:32 Active Consult to Spiritual Care [CONS] Routine Cons 10/14/17 12:32 Active Regular Diet [DIET] Diet 10/14/17 Lunch Active Max Facial Sinus wo Cont [CT] Routine Exams 10/14/17 14:32 Ordered BASIC METABOLIC PANEL,BMP [CHEM] AM Lab 10/15/17 05:11 Ordered BASIC METABOLIC PANEL,BMP [CHEM] AM Lab 10/16/17 05:11 Ordered BASIC METABOLIC PANEL,BMP [CHEM] AM Lab 10/17/17 05:11 Ordered C-REACTIVE PROTEIN [CHEM] AM Lab 10/15/17 05:11 Ordered C-REACTIVE PROTEIN [CHEM] AM Lab 10/16/17 05:11 Ordered C-REACTIVE PROTEIN [CHEM] AM Lab 10/17/17 05:11 Ordered CBC WITH AUTO DIFF [HEME] AM Lab 10/15/17 05:11 Ordered CBC WITH AUTO DIFF [HEME] AM Lab 10/16/17 05:11 Ordered CBC WITH AUTO DIFF [HEME] AM Lab 10/17/17 05:11 Ordered CULTURE NOSE [RM] Stat Lab 10/14/17 12:42 Uncollected MAGNESIUM [CHEM] AM Lab 10/15/17 05:11 Ordered MAGNESIUM [CHEM] AM Lab 10/16/17 05:11 Ordered MAGNESIUM [CHEM] AM Lab 10/17/17 05:11 Ordered VANCOMYCIN TROUGH [CHEM] Timed Lab 10/17/17 14:30 Ordered Acetaminophen [Tylenol] Med 10/14/17 12:22 Active 650 mg PO Q4H PRN Acetaminophen/HYDROcodone [Seltzer 325-5 MG] Med 10/14/17 12:22 Active 1 tab PO Q4H PRN Albuterol [Proventil HFA] Med 10/14/17 12:21 Active 2 gm INH Q4H PRN Albuterol/Ipratropium [DuoNeb 3.0-0.5 MG/3 ML] Med 10/14/17 12:22 Active 3 ml NEB Q4H PRN Aspirin [Halfprin] Med 10/15/17 09:00 Active 81 mg PO DAILY Bisacodyl [Dulcolax] Med 10/14/17 12:22 Active 5 mg PO DAILY PRN Docusate Sodium [Colace] Med 10/14/17 12:22 Active 100 mg PO BID PRN Docusate Sodium/Sennosides [Senna Plus] Med 10/14/17 12:22 Active 1 tab PO BID PRN Enoxaparin [Lovenox] Med 10/15/17 09:00 Active 40 mg SUBCUT DAILY HYDROmorphone [Dilaudid] Med 10/14/17 12:22 Active 0.25 mg IVPUSH Q2H PRN Isosorbide Mononitrate [Imdur] Med 10/15/17 09:00 Active 30 mg PO DAILY LORazepam [Ativan] Med 10/14/17 12:22 Active 1 mg IV Q6H PRN Levofloxacin/Dextrose 5%-Water [Levaquin in D5W 500 MG/ Med 10/14/17 14:00 Active 100 ML] 500 mg Premix Bag 1 bag IV Q24H Levothyroxine [Synthroid] Med 10/15/17 09:00 Active 88 mcg PO DAILY Lisinopril [Prinivil] Med 10/15/17 09:00 Active 10 mg PO DAILY Magnesium Rep Pharmacy to Dose [Pharmacy to Dose - Med 10/14/17 12:45 Active Magnesium Replacement] 1 dose .XX ASDIRECTED Metoprolol Succinate [Toprol XL] Med 10/15/17 09:00 Active 50 mg PO DAILY Metoprolol Tartrate [Lopressor] Med 10/14/17 12:45 Active 5 mg IVPUSH Q4H PRN Ondansetron [Zofran] Med 10/14/17 12:22 Active 4 mg IV Q6H PRN Patient's Own Medication [Ptom] Med 10/14/17 13:00 Active 0 each EYEBOTH QID Patient's Own Medication [Ptom] Med 10/14/17 21:00 Active 0 each PO BEDTIME Patient's Own Medication [Ptom] Med 10/14/17 21:00 Active 0 each PO BID Polyethylene Glycol 3350 [MiraLAX] Med 10/14/17 12:22 Active 17 gm PO DAILY PRN Potassium Rep Pharmacy to Dose [Pharmacy to Dose - Med 10/14/17 12:45 Active Potassium Replacement] 1 dose .XX ASDIRECTED Promethazine [Phenergan] 12.5 mg Med 10/14/17 12:22 Active Sodium Chloride 0.9% [Normal Saline] 50 ml IV Q6H Saccharomyces Boulardii [Florastor] Med 10/14/17 13:00 Active 250 mg PO DAILY Sodium Chloride 0.9% [Normal Saline] 1,000 ml Med 10/14/17 12:30 Active IV ASDIRECTED Tamsulosin [Flomax] Med 10/14/17 21:00 Active 0.4 mg PO BID Temazepam [Restoril] Med 10/14/17 12:22 Active 15 mg PO BEDTIME PRN Timolol Maleate [Timoptic 0.5% Oph Soln] Med 10/15/17 09:00 Active 0 ml EYELF DAILY Vancomycin 1 gm Med 10/14/17 15:00 Active Vancomycin 250 mg Sodium Chloride 0.9% [Normal Saline] 250 ml IV Q24H Vancomycin Pharmacy to Dose [Pharmacy to Dose - Med 10/14/17 12:45 Active Vancomycin] 1 dose .XX ASDIRECTED amLODIPine [Norvasc] Med 10/15/17 09:00 Active 10 mg PO DAILY hydrALAZINE [Apresoline] Med 10/14/17 12:45 Active 20 mg IVPUSH Q4H PRN Resuscitation Status Routine Resus Stat 10/14/17 12:22 Ordered Medication Orders Acetaminophen (Tylenol) 650 mg PO Q4H PRN PRN Reason: Pain (Mild 1-3)/fever Hydrocodone Bitart/Acetaminophen (Seltzer 325-5 Mg) 1 tab PO Q4H PRN PRN Reason: Pain (moderate 4-6) Albuterol (Proventil Hfa) 2 gm INH Q4H PRN PRN Reason: Shortness of Breath Albuterol/Ipratropium (Duoneb 3.0-0.5 Mg/3 Ml) 3 ml NEB Q4H PRN PRN Reason: Shortness Of Breath/wheezing Amlodipine Besylate (Norvasc) 10 mg PO DAILY [facility] Aspirin (Halfprin) 81 mg PO DAILY [facility] Bisacodyl (Dulcolax) 5 mg PO DAILY PRN PRN Reason: Constipation Docusate Sodium (Colace) 100 mg PO BID PRN PRN Reason: Constipation Enoxaparin Sodium (Lovenox) 40 mg SUBCUT DAILY [facility] Hydralazine HCl (Apresoline) 20 mg IVPUSH Q4H PRN PRN Reason: Hypertension Hydromorphone HCl (Dilaudid) 0.25 mg IVPUSH Q2H PRN PRN Reason: Pain (severe 7-10) Promethazine HCl 12.5 mg/ (Sodium Chloride) 50.5 mls @ 100 mls/hr IV Q6H PRN PRN Reason: Nausea/Vomiting Sodium Chloride (Normal Saline) 1,000 mls @ 50 mls/hr IV ASDIRECTED [facility] Last Admin: 10/14/17 14:38 Dose: 50 mls/hr Levofloxacin/Dextrose 500 mg/ (Premix) 100 mls @ 100 mls/hr IV Q24H [facility] Last Admin: 10/14/17 14:38 Dose: 100 mls/hr Vancomycin HCl 1 gm/Vancomycin HCl 250 mg/ Sodium Chloride 250 mls @ 250 mls/ hr IV Q24H [facility] Isosorbide Mononitrate (Imdur) 30 mg PO DAILY [facility] Levothyroxine Sodium (Synthroid) 88 mcg PO DAILY [facility] Lisinopril (Prinivil) 10 mg PO DAILY [facility] Lorazepam (Ativan) 1 mg IV Q6H PRN PRN Reason: Anxiety Magnesium Sulfate (Pharmacy To Dose - Magnesium Replacement) 1 dose .XX ASDIRECTED [facility] Metoprolol Succinate (Toprol Xl) 50 mg PO DAILY [facility] Metoprolol Tartrate (Lopressor) 5 mg IVPUSH Q4H PRN PRN Reason: Tachycardia Ondansetron HCl (Zofran) 4 mg IV Q6H PRN PRN Reason: Nausea/Vomiting Desipramine Hcl 75 (Mg) 0 each PO BEDTIME [facility] Durezol 1 Drop 0 each EYEBOTH QID [facility] Last Admin: 10/14/17 14:33 Dose: Galantamine Hbr [ (Razadyne] 8 Mg) 0 each PO BID [facility] Polyethylene Glycol (Miralax) 17 gm PO DAILY PRN PRN Reason: Constipation Potassium Chloride (Pharmacy To Dose - Potassium Replacement) 1 dose .XX ASDIRECTED [facility] Saccharomyces Boulardii (Florastor) 250 mg PO DAILY [facility] Last Admin: 10/14/17 14:38 Dose: 250 mg Senna/Docusate Sodium (Senna Plus) 1 tab PO BID PRN PRN Reason: Constipation Tamsulosin HCl (Flomax) 0.4 mg PO BID [facility] Temazepam (Restoril) 15 mg PO BEDTIME PRN PRN Reason: Sleep Timolol Maleate (Timoptic 0.5% Ophth Soln) 0 ml EYELF DAILY [facility] Vancomycin HCl (Pharmacy To Dose - Vancomycin) 1 dose .XX ASDIRECTED [facility] Assessment/Plan Comment:: I/P: Abscess/inflammation of nose -Started approx 3-4 weeks prior with pimple on right columella, spreading to tip of nose -Tip of nose erythematous and edematous; painful to palpation -Dried blood/fluid in right nare -Ulceration and necrosis to columnella -Was seen by PCP in past and put on PO cipro and mupirocin ointment -Was seen by Dr. Douglass on 10/14/17 and punch biopsy obtained - awaiting results (sutures in place) -MRSA screen negative -WBC at [place] improved from 25 to 18 -Dr. Mehta consulted Dr. Mcdermott, ENT, and they concluded pt. has failed outpatient treatment and needs IV antibiotics -Of note: Pt. has lymphoma and is on chemo, treated by Dr. Romero - chronic immunocompromised state -CRP <0.2 -Levaquin 500mg IV -Vancomycin -CT scan of face and sinuses - pending -Culture nose - pending -Consult Dr. Douglass, general surgeon Anemia -Hgb 9.0 (up from 6 on earlier clinic visit) -Hct 30 -Hx/o ROSSY and anemia from chronic blood loss -Monitor - appears to be improving -As noted, pt. has history of lymphoma and is currently undergoing chemotherapy -No melena, hematochezia, hematoemesis or obvious bleeding Thrombocytopenia -platelets 90 (up from 74 at earlier clinic visit) -No current signs of obvious bleeding -Denies any increasing bruising or easy bleeding -As noted, pt. has history of lymphoma and is currently undergoing chemotherapy -monitor - appears to be improving Chronic: SLL/CLL - followed by Dr. Romero CAD HTN - stable Alzheimer's dementia Lumbar disk herniation with radiculopathy CKD stage II Renal cell carcinoma Hypothyroidism - continue home Synthroid Ischmeic colitis Anemia due to GI blood loss ROSSY BPH COPD - stable Plan: Admit to medical floor for discharge planning Spiritual care Other orders as indicated above Routine AM labs Home medications as ordered. Start probiotic DVT/PE prophylaxis: Lovenox and ambulation Code status: DNR/DNI. His PCP is Dr. Reynolds at [place]. His oncologist is Dr. Romero. <Zen Mendoza T - Last Filed: 10/14/17 18:40> H&P History of Present Illness - General Admit Problem/Dx: Admission Diagnosis/Problem Admission Diagnosis/Problem Wound Exam - Vital Signs Vital Signs: Last Vital Signs Temp 37.2 C 10/14/17 15:34 Pulse 52 L 10/14/17 15:34 Resp 16 10/14/17 11:12 BP 135/54 L 10/14/17 15:34 Pulse Ox 91 L 10/14/17 15:34 - Patient Data Lab Results Last 24 hrs: Laboratory Results - last 24 hr 10/14/17 Range/Units 12:50 C-Reactive Protein < 0.2 (<1.0) mg/dL *Q Meaningful Use (ADM) - VTE *Q VTE Criteria *Q: - Stroke *Q Stroke Criteria *Q: - AMI *Q AMI Criteria *Q: Orders Last 24hrs: Active Orders 24 hr Category Date Time Status Patient Status [ADT] Routine ADT 10/14/17 11:10 Active Height and Weight [RC] 04 Care 10/14/17 12:22 Active Intake and Output [RC] 04,16 Care 10/14/17 12:30 Active Notify Provider Consults [RC] ASDIRECTED Care 10/14/17 12:33 Active Oxygen Therapy [RC] PRN Care 10/14/17 12:22 Active Pulse Oximetry [RC] PRN Care 10/14/17 12:30 Active RT Aerosol Therapy [RC] .PRN Care 10/14/17 12:31 Active Up With Assistance [RC] DAILY Care 10/14/17 12:22 Active Up ad Norma [RC] DAILY Care 10/14/17 12:22 Active VTE/DVT Education [RC] BID Care 10/14/17 12:22 Active Vital Signs [RC] 00,04,08,12,16,20 Care 10/14/17 12:22 Active Consult to Physician [CONS] Routine Cons 10/14/17 12:32 Active Consult to Spiritual Care [CONS] Routine Cons 10/14/17 12:32 Active Regular Diet [DIET] Diet 10/14/17 Lunch Active BASIC METABOLIC PANEL,BMP [CHEM] AM Lab 10/15/17 05:11 Ordered BASIC METABOLIC PANEL,BMP [CHEM] AM Lab 10/16/17 05:11 Ordered BASIC METABOLIC PANEL,BMP [CHEM] AM Lab 10/17/17 05:11 Ordered C-REACTIVE PROTEIN [CHEM] AM Lab 10/15/17 05:11 Ordered C-REACTIVE PROTEIN [CHEM] AM Lab 10/16/17 05:11 Ordered C-REACTIVE PROTEIN [CHEM] AM Lab 10/17/17 05:11 Ordered CBC WITH AUTO DIFF [HEME] AM Lab 10/15/17 05:11 Ordered CBC WITH AUTO DIFF [HEME] AM Lab 10/16/17 05:11 Ordered CBC WITH AUTO DIFF [HEME] AM Lab 10/17/17 05:11 Ordered CULTURE NOSE [RM] Stat Lab 10/14/17 15:37 Received MAGNESIUM [CHEM] AM Lab 10/15/17 05:11 Ordered MAGNESIUM [CHEM] AM Lab 10/16/17 05:11 Ordered MAGNESIUM [CHEM] AM Lab 10/17/17 05:11 Ordered VANCOMYCIN TROUGH [CHEM] Timed Lab 10/17/17 14:30 Ordered Acetaminophen [Tylenol] Med 10/14/17 12:22 Active 650 mg PO Q4H PRN Acetaminophen/HYDROcodone [Seltzer 325-5 MG] Med 10/14/17 12:22 Active 1 tab PO Q4H PRN Albuterol [Proventil HFA] Med 10/14/17 12:21 Active 2 gm INH Q4H PRN Albuterol/Ipratropium [DuoNeb 3.0-0.5 MG/3 ML] Med 10/14/17 12:22 Active 3 ml NEB Q4H PRN Aspirin [Halfprin] Med 10/15/17 09:00 Active 81 mg PO DAILY Bisacodyl [Dulcolax] Med 10/14/17 12:22 Active 5 mg PO DAILY PRN Docusate Sodium [Colace] Med 10/14/17 12:22 Active 100 mg PO BID PRN Docusate Sodium/Sennosides [Senna Plus] Med 10/14/17 12:22 Active 1 tab PO BID PRN Enoxaparin [Lovenox] Med 10/15/17 09:00 Active 40 mg SUBCUT DAILY HYDROmorphone [Dilaudid] Med 10/14/17 12:22 Active 0.25 mg IVPUSH Q2H PRN Isosorbide Mononitrate [Imdur] Med 10/15/17 09:00 Active 30 mg PO DAILY LORazepam [Ativan] Med 10/14/17 12:22 Active 1 mg IV Q6H PRN Levofloxacin/Dextrose 5%-Water [Levaquin in D5W 500 MG/ Med 10/14/17 14:00 Active 100 ML] 500 mg Premix Bag 1 bag IV Q24H Levothyroxine [Synthroid] Med 10/15/17 09:00 Active 88 mcg PO DAILY Lisinopril [Prinivil] Med 10/15/17 09:00 Active 10 mg PO DAILY Magnesium Rep Pharmacy to Dose [Pharmacy to Dose - Med 10/14/17 12:45 Active Magnesium Replacement] 1 dose .XX ASDIRECTED Metoprolol Succinate [Toprol XL] Med 10/15/17 09:00 Active 50 mg PO DAILY Metoprolol Tartrate [Lopressor] Med 10/14/17 12:45 Active 5 mg IVPUSH Q4H PRN Ondansetron [Zofran] Med 10/14/17 12:22 Active 4 mg IV Q6H PRN Patient's Own Medication [Ptom] Med 10/14/17 13:00 Active 0 each EYEBOTH QID Patient's Own Medication [Ptom] Med 10/14/17 21:00 Active 0 each PO BEDTIME Patient's Own Medication [Ptom] Med 10/14/17 21:00 Active 0 each PO BID Polyethylene Glycol 3350 [MiraLAX] Med 10/14/17 12:22 Active 17 gm PO DAILY PRN Potassium Rep Pharmacy to Dose [Pharmacy to Dose - Med 10/14/17 12:45 Active Potassium Replacement] 1 dose .XX ASDIRECTED Promethazine [Phenergan] 12.5 mg Med 10/14/17 12:22 Active Sodium Chloride 0.9% [Normal Saline] 50 ml IV Q6H Saccharomyces Boulardii [Florastor] Med 10/14/17 13:00 Active 250 mg PO DAILY Sodium Chloride 0.9% [Normal Saline] 1,000 ml Med 10/14/17 12:30 Active IV ASDIRECTED Tamsulosin [Flomax] Med 10/14/17 21:00 Active 0.4 mg PO BID Temazepam [Restoril] Med 10/14/17 12:22 Active 15 mg PO BEDTIME PRN Timolol Maleate [Timoptic 0.5% Ophth Soln] Med 10/15/17 09:00 Active 0 ml EYELF DAILY Vancomycin 1 gm Med 10/14/17 15:00 Active Vancomycin 250 mg Sodium Chloride 0.9% [Normal Saline] 250 ml IV Q24H Vancomycin Pharmacy to Dose [Pharmacy to Dose - Med 10/14/17 12:45 Active Vancomycin] 1 dose .XX ASDIRECTED amLODIPine [Norvasc] Med 10/15/17 09:00 Active 10 mg PO DAILY hydrALAZINE [Apresoline] Med 10/14/17 12:45 Active 20 mg IVPUSH Q4H PRN Resuscitation Status Routine Resus Stat 10/14/17 12:22 Ordered Medication Orders Acetaminophen (Tylenol) 650 mg PO Q4H PRN PRN Reason: Pain (Mild 1-3)/fever Hydrocodone Bitart/Acetaminophen (Seltzer 325-5 Mg) 1 tab PO Q4H PRN PRN Reason: Pain (moderate 4-6) Albuterol (Proventil Hfa) 2 gm INH Q4H PRN PRN Reason: Shortness of Breath Albuterol/Ipratropium (Duoneb 3.0-0.5 Mg/3 Ml) 3 ml NEB Q4H PRN PRN Reason: Shortness Of Breath/wheezing Amlodipine Besylate (Norvasc) 10 mg PO DAILY [facility] Aspirin (Halfprin) 81 mg PO DAILY [facility] Bisacodyl (Dulcolax) 5 mg PO DAILY PRN PRN Reason: Constipation Docusate Sodium (Colace) 100 mg PO BID PRN PRN Reason: Constipation Enoxaparin Sodium (Lovenox) 40 mg SUBCUT DAILY [facility] Hydralazine HCl (Apresoline) 20 mg IVPUSH Q4H PRN PRN Reason: Hypertension Hydromorphone HCl (Dilaudid) 0.25 mg IVPUSH Q2H PRN PRN Reason: Pain (severe 7-10) Promethazine HCl 12.5 mg/ (Sodium Chloride) 50.5 mls @ 100 mls/hr IV Q6H PRN PRN Reason: Nausea/Vomiting Sodium Chloride (Normal Saline) 1,000 mls @ 50 mls/hr IV ASDIRECTED [facility] Last Admin: 10/14/17 14:38 Dose: 50 mls/hr Levofloxacin/Dextrose 500 mg/ (Premix) 100 mls @ 100 mls/hr IV Q24H [facility] Last Admin: 10/14/17 14:38 Dose: 100 mls/hr Vancomycin HCl 1 gm/Vancomycin HCl 250 mg/ Sodium Chloride 250 mls @ 250 mls/ hr IV Q24H [facility] Last Admin: 10/14/17 15:58 Dose: 250 mls/hr Isosorbide Mononitrate (Imdur) 30 mg PO DAILY [facility] Levothyroxine Sodium (Synthroid) 88 mcg PO DAILY [facility] Lisinopril (Prinivil) 10 mg PO DAILY [facility] Lorazepam (Ativan) 1 mg IV Q6H PRN PRN Reason: Anxiety Magnesium Sulfate (Pharmacy To Dose - Magnesium Replacement) 1 dose .XX ASDIRECTED [facility] Metoprolol Succinate (Toprol Xl) 50 mg PO DAILY [facility] Metoprolol Tartrate (Lopressor) 5 mg IVPUSH Q4H PRN PRN Reason: Tachycardia Ondansetron HCl (Zofran) 4 mg IV Q6H PRN PRN Reason: Nausea/Vomiting Desipramine Hcl 75 (Mg) 0 each PO BEDTIME [facility] Durezol 1 Drop 0 each EYEBOTH QID [facility] Last Admin: 10/14/17 16:29 Dose: Admin: 10/14/17 14:33 Dose: Galantamine Hbr [ (Razadyne] 8 Mg) 0 each PO BID [facility] Polyethylene Glycol (Miralax) 17 gm PO DAILY PRN PRN Reason: Constipation Potassium Chloride (Pharmacy To Dose - Potassium Replacement) 1 dose .XX ASDIRECTED [facility] Saccharomyces Boulardii (Florastor) 250 mg PO DAILY [facility] Last Admin: 10/14/17 14:38 Dose: 250 mg Senna/Docusate Sodium (Senna Plus) 1 tab PO BID PRN PRN Reason: Constipation Tamsulosin HCl (Flomax) 0.4 mg PO BID [facility] Temazepam (Restoril) 15 mg PO BEDTIME PRN PRN Reason: Sleep Timolol Maleate (Timoptic 0.5% Ophth Soln) 0 ml EYELF DAILY [facility] Vancomycin HCl (Pharmacy To Dose - Vancomycin) 1 dose .XX ASDIRECTED [facility]
--- NOTE | 2017-10-14 15:34 | CT ---
CT facial bones Technique: Multiple axial sections were obtained through the maxillofacial structures. Intravenous contrast not utilized. Reconstructed coronal and sagittal images were reviewed. Findings: Mild mucosal thickening is seen within sphenoid and left maxillary sinus. Mucosal thickening also noted within the left mastoid sinus. No facial bone fracture is identified. Right and left globes are symmetric. Small calcification is seen within the anterior soft tissues of the nose Impression: 1. Mucosal thickening within the paranasal sinuses as noted above as well as left mastoid sinus. These findings are most likely chronic. 2. Small calcification anteriorly within the soft tissues of the nose. 3. No acute facial bone abnormality is appreciated. Diagnostic code #2
[2017-10-14] MEDS: Vancomycin 1 GM, Vancomycin 250 MG in Sodium Chloride 0.9% 250 ML IV SCH (15:58)
[2017-10-14] MEDS: Famotidine 20 MG Tab PO SCH (20:47)
[2017-10-14] MEDS: Tamsulosin 0.4 MG Cap.ER PO SCH (20:47)
[2017-10-14] MEDS: Mupirocin Oint 22 GM Tube TOP SCH (20:48)
[2017-10-14] MEDS: GALANTAMINE HBR 8 MG PO SCH (20:50)
[2017-10-14] MEDS ORDERED: DESIPRAMINE HCL 75 MG PO SCH (21:00)
--- NOTE | 2017-10-15 07:17 | PCM.PN ---
- General Info Date of Service: 10/15/17 Admission Dx/Problem (Free Text): Admission Diagnosis/Problem Admission Diagnosis/Problem Wound Gwyn is seen this morning, sitting up in bed reading the paper. He states he feels "fine" does have pain and discomfort to the tip of his nose but it may be a little improved. Otherwise he's doing well, afebrile, appetite is good ate all of his breakfast without nausea vomiting diarrhea. He did sleep well. He' s been up and ambulatory in the halls with therapy doing well. Functional Status: Reports: Pain Controlled, Tolerating Diet, Ambulating, Urinating - Review of Systems General: Denies: Fever HEENT: Reports: Headaches, Other (pain to tip of nose) Pulmonary: Denies: Shortness of Breath Cardiovascular: Reports: No Symptoms. Denies: Chest Pain Gastrointestinal: Reports: No Symptoms. Denies: Diarrhea, Nausea, Vomiting Skin: Reports: Other (wound to right nares) Neurological: Reports: No Symptoms Psychiatric: Reports: No Symptoms - Patient Data Vitals - Most Recent: Last Vital Signs Temp 98.4 F 10/15/17 04:48 Pulse 46 L 10/15/17 04:48 Resp 16 10/15/17 04:48 BP 120/87 10/15/17 04:48 Pulse Ox 95 10/15/17 04:48 Weight - Most Recent: 175 lb 12.8 oz I&O - Last 24 Hours: Intake & Output 10/14/17 10/15/17 10/15/17 22:59 06:59 14:59 Intake Total 1170 1597 Output Total 100 700 Balance 1070 897 Lab Results Last 24 Hours: Laboratory Results - last 24 hr 10/14/17 10/15/17 Range/Units 12:50 05:45 WBC 10.96 H (4.23-9.07) K/mm3 RBC 2.52 L (4.63-6.08) M/mm3 Hgb 8.0 L (13.7-17.5) gm/L Hct 26.5 L (40.1-51.0) % MCV 105.2 H (79.0-92.2) fl MCH 31.7 (25.7-32.2) pg MCHC 30.2 L (32.2-35.5) g/dl RDW Std Deviation 93.0 H (35.1-43.9) fL Plt Count 80 L (163-337) K/mm3 MPV 12.2 (9.4-12.3) fl Neut % (Auto) 11.4 L (34.0-67.9) % Lymph % (Auto) 85.3 H (21.8-53.1) % Alfalfa % (Auto) 2.9 L (5.3-12.2) % Eos % (Auto) 0.2 L (0.8-7.0) Baso % (Auto) 0.1 (0.1-1.2) % Neut # (Auto) 1.25 L (1.78-5.38) K/mm3 Lymph # (Auto) 9.35 H (1.32-3.57) K/mm3 Alfalfa # (Auto) 0.32 (0.30-0.82) K/mm3 Eos # (Auto) 0.02 L (0.04-0.54) K/mm3 Baso # (Auto) 0.01 (0.01-0.08) K/mm3 C-Reactive Protein < 0.2 (<1.0) mg/dL Med Orders - Current: Current Medications Acetaminophen (Tylenol) 650 mg PO Q4H PRN PRN Reason: Pain (Mild 1-3)/fever Last Admin: 10/14/17 20:48 Dose: 650 mg Hydrocodone Bitart/Acetaminophen ([place] 325-5 Mg) 1 tab PO Q4H PRN PRN Reason: Pain (moderate 4-6) Albuterol (Proventil Hfa) 2 gm INH Q4H PRN PRN Reason: Shortness of Breath Albuterol/Ipratropium (Duoneb 3.0-0.5 Mg/3 Ml) 3 ml NEB Q4H PRN PRN Reason: Shortness Of Breath/wheezing Amlodipine Besylate (Norvasc) 10 mg PO DAILY [facility] Aspirin (Halfprin) 81 mg PO DAILY [facility] Bisacodyl (Dulcolax) 5 mg PO DAILY PRN PRN Reason: Constipation Docusate Sodium (Colace) 100 mg PO BID PRN PRN Reason: Constipation Enoxaparin Sodium (Lovenox) 40 mg SUBCUT DAILY [facility] Famotidine (Pepcid) 20 mg PO BID [facility] Last Admin: 10/14/17 20:47 Dose: 20 mg Galantamine Hydrobromide (Razadyne) 8 mg PO BID [facility] Last Admin: 10/14/17 20:47 Dose: 8 mg Hydralazine HCl (Apresoline) 20 mg IVPUSH Q4H PRN PRN Reason: Hypertension Hydromorphone HCl (Dilaudid) 0.25 mg IVPUSH Q2H PRN PRN Reason: Pain (severe 7-10) Promethazine HCl 12.5 mg/ (Sodium Chloride) 50.5 mls @ 100 mls/hr IV Q6H PRN PRN Reason: Nausea/Vomiting Sodium Chloride (Normal Saline) 1,000 mls @ 50 mls/hr IV ASDIRECTED [facility] Last Admin: 10/14/17 14:38 Dose: 50 mls/hr Levofloxacin/Dextrose 500 mg/ (Premix) 100 mls @ 100 mls/hr IV Q24H [facility] Last Admin: 10/14/17 14:38 Dose: 100 mls/hr Vancomycin HCl 1 gm/Vancomycin HCl 250 mg/ Sodium Chloride 250 mls @ 250 mls/ hr IV Q24H [facility] Last Admin: 10/14/17 15:58 Dose: 250 mls/hr Isosorbide Mononitrate (Imdur) 30 mg PO DAILY [facility] Levothyroxine Sodium (Synthroid) 88 mcg PO DAILY [facility] Lisinopril (Prinivil) 10 mg PO DAILY [facility] Lorazepam (Ativan) 1 mg IV Q6H PRN PRN Reason: Anxiety Magnesium Sulfate (Pharmacy To Dose - Magnesium Replacement) 1 dose .XX ASDIRECTED [facility] Metoprolol Succinate (Toprol Xl) 50 mg PO DAILY [facility] Metoprolol Tartrate (Lopressor) 5 mg IVPUSH Q4H PRN PRN Reason: Tachycardia Mupirocin (Bactroban Oint) 22 gm TOP BID [facility] Last Admin: 10/14/17 20:48 Dose: 1 each Ondansetron HCl (Zofran) 4 mg IV Q6H PRN PRN Reason: Nausea/Vomiting Desipramine Hcl 75 (Mg) 0 each PO BEDTIME [facility] Last Admin: 10/14/17 20:49 Dose: Not Given Durezol 1 Drop 0 each EYEBOTH QID [facility] Last Admin: 10/14/17 20:50 Dose: Not Given Galantamine Hbr [ (Razadyne] 8 Mg) 0 each PO BID [facility] Last Admin: 10/14/17 20:50 Dose: Not Given Polyethylene Glycol (Miralax) 17 gm PO DAILY PRN PRN Reason: Constipation Potassium Chloride (Pharmacy To Dose - Potassium Replacement) 1 dose .XX ASDIRECTED [facility] Saccharomyces Boulardii (Florastor) 250 mg PO DAILY [facility] Last Admin: 10/14/17 14:38 Dose: 250 mg Senna/Docusate Sodium (Senna Plus) 1 tab PO BID PRN PRN Reason: Constipation Tamsulosin HCl (Flomax) 0.4 mg PO BID [facility] Last Admin: 10/14/17 20:47 Dose: 0.4 mg Temazepam (Restoril) 15 mg PO BEDTIME PRN PRN Reason: Sleep Temazepam (Restoril) 15 mg PO BEDTIME PRN PRN Reason: Sleep Timolol Maleate (Timoptic 0.5% Oph Soln) 0 ml EYELF DAILY [facility] Vancomycin HCl (Pharmacy To Dose - Vancomycin) 1 dose .XX ASDIRECTED [facility] Discontinued Medications Levofloxacin/Dextrose 500 mg/ (Premix) 100 mls @ 100 mls/hr IV ONETIME ONE Stop: 10/14/17 13:42 Last Admin: 10/14/17 14:34 Dose: Not Given Vancomycin HCl 1 gm/Vancomycin HCl 500 mg/ Sodium Chloride 500 mls @ 125 mls/ hr IV Q24H [facility] Last Admin: 10/14/17 14:35 Dose: Not Given Non-Formulary Medication (Nitroglycerin [Nitrostat]) 0.4 mg SL Q5M PRN PRN Reason: Chest Pain Non-Formulary Medication (Nystatin) 1 applic TOP BID PRN PRN Reason: skin complications Saccharomyces Boulardii (Florastor) 250 mg PO NOW STA Stop: 10/14/17 12:46 Last Admin: 10/14/17 14:35 Dose: Not Given - Exam Quality Assessment: DVT Prophylaxis General: Alert, Oriented, Cooperative, No Acute Distress, Other (pleasant, talkative) HEENT: Pupils Equal, EOMI, Mucous Membr. Moist/[place], Other (right nares with dried blood noted, no bleeding or drainage, no purulence. Tip of nose is with mild erythema and swelling. Mild to moderate pain with palpation to tip of nose today.) Neck: Supple Lungs: Clear to Auscultation, Normal Respiratory Effort Cardiovascular: Regular Rate, Regular Rhythm GI/Abdominal Exam: Normal Bowel Sounds, Soft, Non-Tender (Male) Exam: Deferred Extremities: Normal Inspection, No Pedal Edema, Normal Capillary Refill Neurological: No New Focal Deficit, Strength Equal Bilateral Psy/Mental Status: Alert, Normal Affect, Normal Mood - Problem List & Annotations (1) Nasal abscess SNOMED Code(s): 0143423 Code(s): J34.0 - ABSCESS, FURUNCLE AND CARBUNCLE OF NOSE Status: Acute Priority: High Current Visit: Yes (2) Lymphoma SNOMED Code(s): 730832573 Code(s): C85.90 - NON-HODGKIN LYMPHOMA, UNSPECIFIED, UNSPECIFIED SITE Status: Acute Priority: Medium Current Visit: Yes Qualifiers: Lymphoma type: unspecified type Lymphoma site: multiple regions Qualified Code(s): C85.98 - Non-Hodgkin lymphoma, unspecified, lymph nodes of multiple sites (3) Anemia SNOMED Code(s): 572477031 Code(s): D64.9 - ANEMIA, UNSPECIFIED Status: Chronic Priority: Medium Current Visit: Yes Qualifiers: Anemia type: unspecified type Qualified Code(s): D64.9 - Anemia, unspecified (4) CKD (chronic kidney disease) stage 2, GFR 60-89 ml/min SNOMED Code(s): 090067541 Code(s): N18.2 - CHRONIC KIDNEY DISEASE, STAGE 2 (MILD) Status: Chronic Priority: Medium Current Visit: Yes - Problem List Review Problem List Initiated/Reviewed/Updated: Yes - Plan Plan:: I/P: Abscess/inflammation of nose -Started approx 3-4 weeks prior with pimple on right columella, spreading to tip of nose -Tip of nose erythematous and edematous; painful to palpation; Dried blood/ fluid in right nare; Ulceration and necrosis to columnella -Was seen by PCP in past and put on PO cipro and mupirocin ointment -Was seen by Dr. Douglass on 10/14/17 and punch biopsy obtained - awaiting results (sutures in place) -MRSA screen negative -WBC at [facility] improved from 25 to 18-->10 today -Dr. Douglass consulted Dr. Mcdermott, ENT, and they concluded pt. has failed outpatient treatment and needs IV antibiotics, Dr. Douglass's initial recommendation to Dr. Mendoza is 3 days of IV abx -Of note: Pt. has lymphoma and is on chemo, oral BID at this time, treated by Dr. Romero - chronic immunocompromised state -CRP <0.2 x 2 days -Levaquin 500mg and Vancomycin IV -CT scan of face and sinuses -Culture nose - pending -Consult Dr. Douglass, General Surgeon Anemia -Hgb 9.0 (up from 6 on earlier clinic visit)-->8.0 today -Hct 30 -Hx/o ROSSY and anemia from chronic blood loss -Cont to monitor -As noted, pt. has history of lymphoma and is currently undergoing chemotherapy -No melena, hematochezia, hematoemesis or obvious bleeding Thrombocytopenia, by hx -platelets 90 (up from 74 at earlier clinic visit) -No current signs of obvious bleeding -Denies any increasing bruising or easy bleeding -As noted, pt. has history of lymphoma and is currently undergoing chemotherapy -Cont to monitor Chronic: SLL/CLL - followed by Dr. Romero CAD HTN - stable Alzheimer's dementia Lumbar disk herniation with radiculopathy CKD stage II--stable Renal cell carcinoma Hx Hypothyroidism - continue home Synthroid Ischmeic colitis Anemia due to GI blood loss ROSSY BPH COPD - stable Plan: Admit to medical floor CM for discharge planning-- Dr. Mendoza to visit with Dr. Douglass today re: improved labs, further abx recommendations and discharge date. Spiritual care Other orders as indicated above Routine AM labs Home medications as ordered. Start probiotic DVT/PE prophylaxis: Lovenox and ambulation Code status: DNR/DNI. His PCP is Dr. Reynolds at [facility]. His oncologist is Dr. Romero.
[2017-10-15] MEDS: Saccharomyces Boulardii (Probiotic) 250 MG Cap PO SCH (08:54)
[2017-10-15] MEDS: Tamsulosin 0.4 MG Cap.ER PO SCH (08:55)
[2017-10-15] MEDS: Famotidine 20 MG Tab PO SCH (08:55)
[2017-10-15] MEDS: Mupirocin Oint 22 GM Tube TOP SCH (08:58)
[2017-10-15] MEDS: GALANTAMINE HBR 8 MG PO SCH (08:59)
[2017-10-15] MEDS ORDERED: amLODIPine 10 MG Tab PO SCH (09:00)
[2017-10-15] MEDS ORDERED: Enoxaparin 40 MG/0.4 ML Syringe SUBCUT SCH (09:00)
[2017-10-15] MEDS ORDERED: Lisinopril 10 MG Tab PO SCH (09:00)
[2017-10-15] MEDS: DUREZOL EYEBOTH SCH ×2 (09:00→13:37)
[2017-10-15] MEDS ORDERED: Timolol Maleate 0.5% Ophth Soln 5 ML Bottle EYELF SCH (09:00)
[2017-10-15] MEDS ORDERED: Metoprolol Succinate 50 MG Tab.ER PO SCH (09:00)
[2017-10-15] MEDS ORDERED: Isosorbide Mononitrate 30 MG Tab.ER PO SCH (09:00)
[2017-10-15] MEDS ORDERED: Aspirin 81 MG Tab.EC PO SCH (09:00)
[2017-10-15] MEDS ORDERED: Levothyroxine 88 MCG Tab PO SCH (09:00)
[2017-10-15] MEDS: Sodium Chloride 0.9% 1,000 ML IV SCH (10:56)
--- NOTE | 2017-10-15 11:15 | PCM.DCSUM1 ---
Discharge Summary - Hospital Course Free Text/Narrative:: Gwyn Barraza is an 87 yo male who was evaluated by Dr. Douglass today at [facility] for inflammation of the columnella on the nose. He was reportedly seen in clinic last week for this and also anemia, with a Hgb of 6. A MRSA screen was done, which was negative, and he was prescribed cipro and mupirocin ointment. He was seen by Dr. Reynolds for follow-up, who felt the nose was getting worse and referred him to Dr. Douglass, general surgeon. During his exam some ulceration and necrosis of the columnella were noted however the erythema of the nasal tip improved and his WBC decreased from 25,000 to 18,000. A punch biopsy was obtained by Dr. Douglass and is pending. It is reported that Dr. Douglass contacted Dr. Mcdermott, ENT, and they decided that the patient has failed outpatient treatment and should be hospitalized for IV antibiotics. This was also reportedly discussed with the patient and he agrees to the plan. Labs were obtained at [facility] today: WBC 18.7. Hemoglobin 9.0. Hematocrit 30.0. He is macrocytic at 107.1. Platelet counts are low at 90. Neutrophils are elevated at 16.8 and some atypical lymphocytes are seen on the smear. Glucose is 105. BUN 15. Creatinine 1.0. EGFR is 70. Sodium is 141. Potassium 4.2. Chloride 104. CO2 is 27. Anion gap with potassium is 14. Calcium 9.1. 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 The note is somewhat confusing as there are multiple stages listed, however Dr. 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 He notes symptoms of fatigue, insomnia, and some lymph nodes in his neck. A CT scan was obtained on 02/08/[address] Taylor as: No significant change in cervical with lymphadenopathy and supraclavicular lymphadenopathy. Unfortunately, prior chest CTs are not available for comparison. However, significant axillary lymphadenopathy is noted bilaterally with associated mediastinal adenopathy. Marked increase in bulky adenopathy is noted within the retroperitoneum and mesentery since the prior examination of . Stable right renal mass lesions. Enlarged inguinal lymph nodes that contained fatty sugey. Pelvic lymphadenopathy. No osseous lesions. Benign- appearing cysts are noted on the left kidney. He carries a history of: CAD, CHF, HTN, insomnia, HLD, Alzheimer's dementia, lumbar disc herniation with radiculopathy, see Monica stage II, renal cell cancer , hypothyroidism, ischemic colitis, anemia due to GI blood loss, ROSSY, BPH with lower urinary tract symptoms, COPD. He subsequently admitted to the medical floor. His code status is DNR/DNI. His PCP is Dr. Reynolds, although Dr. Douglass has seen him most recently for this condition. As noted he is also followed closely by Dr. Romero for his lymphoma. - Discharge Data Discharge Date: 10/15/17 (admit date 10/04/17) Discharge Disposition: Home, Self-Care 01 Condition: Good - Discharge Diagnosis/Problem(s) (1) Nasal abscess SNOMED Code(s): 4678665 ICD Code: J34.0 - ABSCESS, FURUNCLE AND CARBUNCLE OF NOSE Status: Acute Priority: High Current Visit: Yes (2) Lymphoma SNOMED Code(s): 487486308 ICD Code: C85.90 - NON-HODGKIN LYMPHOMA, UNSPECIFIED, UNSPECIFIED SITE Status: Acute Priority: Medium Current Visit: Yes Qualifiers: Qualified Code(s): C85.98 - Non-Hodgkin lymphoma, unspecified, lymph nodes of multiple sites (3) Anemia SNOMED Code(s): 865194321 ICD Code: D64.9 - ANEMIA, UNSPECIFIED Status: Chronic Priority: Medium Current Visit: Yes Qualifiers: Qualified Code(s): D64.9 - Anemia, unspecified (4) CKD (chronic kidney disease) stage 2, GFR 60-89 ml/min SNOMED Code(s): 653291479 ICD Code: N18.2 - CHRONIC KIDNEY DISEASE, STAGE 2 (MILD) Status: Chronic Priority: Medium Current Visit: Yes - Patient Summary/Data Operative Procedure(s) Performed: None Complications: None Consults: Consultations 10/14/17 12:32 Consult to Physician [CONS] Routine Consult to Spiritual Care [CONS] Routine Labs Pending at D/C: None Recommended Follow-up Testing/Procedures: Follow up with Dr. Douglass on next week-- 10/21/16; PO abx x 1 week. Planned Operative Procedure(s) after DC: None Hospital Course: I/P: Abscess/inflammation of nose--- concern is for infection vs cancer--bx pending -Started approx 3-4 weeks prior with pimple on right columella, spreading to tip of nose -Tip of nose erythematous and edematous; painful to palpation; Dried blood/ fluid in right nare; Ulceration and necrosis to columnella -Was seen by PCP in past and put on PO cipro and mupirocin ointment -Was seen by Dr. Douglass on 10/14/17 and punch biopsy obtained - awaiting results (sutures in place) -MRSA screen negative -WBC at [facility] improved from 25 to 18-->10 today -Dr. Douglass consulted Dr. Mcdermott, ENT, and they concluded pt. has failed outpatient treatment and needs IV antibiotics, Dr. Douglass's initial recommendation to Dr. Mendoza is 3 days of IV abx -Of note: Pt. has lymphoma and is on chemo, oral BID at this time, treated by Dr. Romero - chronic immunocompromised state -CRP <0.2 x 2 days -Levaquin 500mg and Vancomycin IV -CT scan of face and sinuses -Culture nose - pending -Consult Dr. Douglass, General Surgeon Anemia -Hgb 9.0 (up from 6 on earlier clinic visit)-->8.0 today -Hct 30 -Hx/o ROSSY and anemia from chronic blood loss -Cont to monitor -As noted, pt. has history of lymphoma and is currently undergoing chemotherapy -No melena, hematochezia, hematoemesis or obvious bleeding Thrombocytopenia, by hx -platelets 90 (up from 74 at earlier clinic visit) -No current signs of obvious bleeding -Denies any increasing bruising or easy bleeding -As noted, pt. has history of lymphoma and is currently undergoing chemotherapy -Cont to monitor Chronic: SLL/CLL - followed by Dr. Romero CAD HTN - stable Alzheimer's dementia Lumbar disk herniation with radiculopathy CKD stage II--stable Renal cell carcinoma Hx Hypothyroidism - continue home Synthroid Ischmeic colitis Anemia due to GI blood loss ROSSY BPH COPD - stable Plan: Admit to medical floor CM for discharge planning-- Dr. Mendoza to visit with Dr. Douglass today re: improved labs, further abx recommendations and discharge date. Spiritual care Other orders as indicated above Routine AM labs Home medications as ordered. Start probiotic DVT/PE prophylaxis: Lovenox and ambulation Code status: DNR/DNI. His PCP is Dr. Reynolds at [facility]. His oncologist is Dr. Romero. - Patient Instructions Diet: Usual Diet as Tolerated Activity: As Tolerated Showering/Bathing: May Shower Notify Provider of: Fever, Increased Pain, Swelling and Redness, Nausea and/or Vomiting - Discharge Plan Home Medications: Home Meds Isosorbide Mononitrate [Isosorbide Mononitrate ER] 30 mg PO DAILY 05/10/17 [ History] Lisinopril 10 mg PO DAILY 05/10/17 [History] Metoprolol Succinate 50 mg PO DAILY 05/10/17 [History] Tamsulosin HCl 0.4 mg PO BID 05/10/17 [History] Timolol Maleate [Timoptic 0.5% Ophth Soln] 1 drop EYELF DAILY 05/10/17 [History] amLODIPine [Norvasc] 10 mg PO DAILY 05/10/17 [History] Desipramine HCl [Norpramin] 75 mg PO BEDTIME 08/13/17 [History] Levothyroxine [Synthroid] 88 mcg PO DAILY 08/13/17 [History] Albuterol Sulfate [Proair Hfa] 2 puff INH Q4HR PRN 10/14/17 [History] Ciprofloxacin [Ciprofloxacin HCl] 250 mg PO BID 10/14/17 [History] Galantamine Hbr [Galantamine HBr] 8 mg PO BID 10/14/17 [History] Mupirocin Oint [Bactroban Oint] 22 gm TOP BID 10/14/17 [History] Ondansetron [Zofran] 4 mg PO Q4H PRN 10/14/17 [History] Temazepam 15 mg PO BEDTIME PRN 10/14/17 [History] - Discharge Summary/Plan Comment DC Time >30 min.: No (30 min) - General Info Date of Service: 10/15/17 Admission Dx/Problem (Free Text: Admission Diagnosis/Problem Admission Diagnosis/Problem Wound Gwyn is seen this morning, sitting up in bed reading the paper. He states he feels "fine" does have pain and discomfort to the tip of his nose but it may be a little improved. Otherwise he's doing well, afebrile, appetite is good ate all of his breakfast without nausea vomiting diarrhea. He did sleep well. He' s been up and ambulatory in the halls with therapy doing well. Functional Status: Reports: Pain Controlled, Tolerating Diet, Ambulating, Urinating. Denies: New Symptoms - Review of Systems General: Denies: Fever HEENT: Reports: No Symptoms Pulmonary: Reports: No Symptoms Cardiovascular: Reports: No Symptoms Gastrointestinal: Reports: No Symptoms Genitourinary: Reports: No Symptoms Musculoskeletal: Reports: No Symptoms Skin: Reports: Other (wound to nares, erythema and mild pain to tip of nose) Neurological: Reports: No Symptoms Psychiatric: Reports: No Symptoms - Patient Data Vitals - Most Recent: Last Vital Signs Temp 98.4 F 10/15/17 07:56 Pulse 61 10/15/17 08:56 Resp 16 10/15/17 04:48 BP 153/56 H 10/15/17 08:56 Pulse Ox 90 L 10/15/17 07:56 Weight - Most Recent: 175 lb 12.8 oz I&O - Last 24 hours: Intake & Output 10/14/17 10/15/17 10/15/17 22:59 06:59 14:59 Intake Total 1170 1597 Output Total 100 700 Balance 1070 897 Lab Results - Last 24 hrs: Laboratory Results - last 24 hr 10/14/17 10/15/17 10/15/17 Range/Units 12:50 05:45 05:45 WBC 10.96 H (4.23-9.07) K/mm3 RBC 2.52 L (4.63-6.08) M/mm3 Hgb 8.0 L (13.7-17.5) gm/L Hct 26.5 L (40.1-51.0) % MCV 105.2 H (79.0-92.2) fl MCH 31.7 (25.7-32.2) pg MCHC 30.2 L (32.2-35.5) g/dl RDW Std Deviation 93.0 H (35.1-43.9) fL Plt Count 80 L (163-337) K/mm3 MPV 12.2 (9.4-12.3) fl Neut % (Auto) 11.4 L (34.0-67.9) % Lymph % (Auto) 85.3 H (21.8-53.1) % Angelina % (Auto) 2.9 L (5.3-12.2) % Eos % (Auto) 0.2 L (0.8-7.0) Baso % (Auto) 0.1 (0.1-1.2) % Neut # (Auto) 1.25 L (1.78-5.38) K/mm3 Lymph # (Auto) 9.35 H (1.32-3.57) K/mm3 Angelina # (Auto) 0.32 (0.30-0.82) K/mm3 Eos # (Auto) 0.02 L (0.04-0.54) K/mm3 Baso # (Auto) 0.01 (0.01-0.08) K/mm3 Manual Slide Review Abnormal smear Sodium 143 (136-145) mEq/L Potassium 3.9 (3.5-5.1) mEq/L Chloride 109 H (98-107) mEq/L Carbon Dioxide 26 (21-32) mEq/L Anion Gap 11.9 (5-15) BUN 14 (7-18) mg/dL Creatinine 0.9 (0.7-1.3) mg/dL Est Cr Clr Drug Dosing 50.21 mL/min Estimated GFR (MDRD) > 60 (>60) mL/min BUN/Creatinine Ratio 15.6 (14-18) Glucose 86 (83-115) mg/dL Calcium 8.4 L (8.5-10.1) mg/dL Magnesium 2.0 (1.8-2.4) mg/dl C-Reactive Protein < 0.2 < 0.2 (<1.0) mg/dL Med Orders - Current: Current Medications Acetaminophen (Tylenol) 650 mg PO Q4H PRN PRN Reason: Pain (Mild 1-3)/fever Last Admin: 10/14/17 20:48 Dose: 650 mg Hydrocodone Bitart/Acetaminophen ([place] 325-5 Mg) 1 tab PO Q4H PRN PRN Reason: Pain (moderate 4-6) Albuterol (Proventil Hfa) 2 gm INH Q4H PRN PRN Reason: Shortness of Breath Albuterol/Ipratropium (Duoneb 3.0-0.5 Mg/3 Ml) 3 ml NEB Q4H PRN PRN Reason: Shortness Of Breath/wheezing Amlodipine Besylate (Norvasc) 10 mg PO DAILY [facility] Last Admin: 10/15/17 08:55 Dose: 10 mg Aspirin (Halfprin) 81 mg PO DAILY [facility] Last Admin: 10/15/17 08:56 Dose: 81 mg Bisacodyl (Dulcolax) 5 mg PO DAILY PRN PRN Reason: Constipation Last Admin: 10/15/17 08:55 Dose: 5 mg Docusate Sodium (Colace) 100 mg PO BID PRN PRN Reason: Constipation Enoxaparin Sodium (Lovenox) 40 mg SUBCUT DAILY [facility] Last Admin: 10/15/17 08:54 Dose: 40 mg Famotidine (Pepcid) 20 mg PO BID [facility] Last Admin: 10/15/17 08:55 Dose: 20 mg Galantamine Hydrobromide (Razadyne) 8 mg PO BID [facility] Last Admin: 10/15/17 08:56 Dose: 8 mg Hydralazine HCl (Apresoline) 20 mg IVPUSH Q4H PRN PRN Reason: Hypertension Hydromorphone HCl (Dilaudid) 0.25 mg IVPUSH Q2H PRN PRN Reason: Pain (severe 7-10) Promethazine HCl 12.5 mg/ (Sodium Chloride) 50.5 mls @ 100 mls/hr IV Q6H PRN PRN Reason: Nausea/Vomiting Sodium Chloride (Normal Saline) 1,000 mls @ 50 mls/hr IV ASDIRECTED [facility] Last Admin: 10/15/17 10:56 Dose: 50 mls/hr Levofloxacin/Dextrose 500 mg/ (Premix) 100 mls @ 100 mls/hr IV Q24H [facility] Last Admin: 10/14/17 14:38 Dose: 100 mls/hr Vancomycin HCl 1 gm/Vancomycin HCl 250 mg/ Sodium Chloride 250 mls @ 250 mls/ hr IV Q24H [facility] Last Admin: 10/14/17 15:58 Dose: 250 mls/hr Isosorbide Mononitrate (Imdur) 30 mg PO DAILY [facility] Last Admin: 10/15/17 08:55 Dose: 30 mg Levothyroxine Sodium (Synthroid) 88 mcg PO DAILY [facility] Last Admin: 10/15/17 08:55 Dose: 88 mcg Lisinopril (Prinivil) 10 mg PO DAILY [facility] Last Admin: 10/15/17 08:55 Dose: 10 mg Lorazepam (Ativan) 1 mg IV Q6H PRN PRN Reason: Anxiety Magnesium Sulfate (Pharmacy To Dose - Magnesium Replacement) 1 dose .XX ASDIRECTED [facility] Metoprolol Succinate (Toprol Xl) 50 mg PO DAILY [facility] Last Admin: 10/15/17 08:56 Dose: 50 mg Metoprolol Tartrate (Lopressor) 5 mg IVPUSH Q4H PRN PRN Reason: Tachycardia Mupirocin (Bactroban Oint) 22 gm TOP BID [facility] Last Admin: 10/15/17 08:58 Dose: 1 applic Ondansetron HCl (Zofran) 4 mg IV Q6H PRN PRN Reason: Nausea/Vomiting Desipramine Hcl 75 (Mg) 0 each PO BEDTIME [facility] Last Admin: 10/14/17 20:49 Dose: Not Given Durezol 1 Drop 0 each EYEBOTH QID [facility] Last Admin: 10/15/17 09:00 Dose: Not Given Galantamine Hbr [ (Razadyne] 8 Mg) 0 each PO BID [facility] Last Admin: 10/15/17 08:59 Dose: Not Given Polyethylene Glycol (Miralax) 17 gm PO DAILY PRN PRN Reason: Constipation Potassium Chloride (Pharmacy To Dose - Potassium Replacement) 1 dose .XX ASDIRECTED [facility] Saccharomyces Boulardii (Florastor) 250 mg PO DAILY [facility] Last Admin: 10/15/17 08:54 Dose: 250 mg Senna/Docusate Sodium (Senna Plus) 1 tab PO BID PRN PRN Reason: Constipation Tamsulosin HCl (Flomax) 0.4 mg PO BID [facility] Last Admin: 10/15/17 08:55 Dose: 0.4 mg Temazepam (Restoril) 15 mg PO BEDTIME PRN PRN Reason: Sleep Temazepam (Restoril) 15 mg PO BEDTIME PRN PRN Reason: Sleep Timolol Maleate (Timoptic 0.5% [facility]) 0 ml EYELF DAILY [facility] Last Admin: 10/15/17 08:54 Dose: 1 drop Vancomycin HCl (Pharmacy To Dose - Vancomycin) 1 dose .XX ASDIRECTED [facility] Discontinued Medications Levofloxacin/Dextrose 500 mg/ (Premix) 100 mls @ 100 mls/hr IV ONETIME ONE Stop: 10/14/17 13:42 Last Admin: 12/28/17 14:34 Dose: Not Given Vancomycin HCl 1 gm/Vancomycin HCl 500 mg/ Sodium Chloride 500 mls @ 125 mls/ hr IV Q24H [facility] Last Admin: 10/14/17 14:35 Dose: Not Given Non-Formulary Medication (Nitroglycerin [Nitrostat]) 0.4 mg SL Q5M PRN PRN Reason: Chest Pain Non-Formulary Medication (Nystatin) 1 applic TOP BID PRN PRN Reason: skin complications Saccharomyces Boulardii (Florastor) 250 mg PO NOW STA Stop: 10/14/17 12:46 Last Admin: 10/14/17 14:35 Dose: Not Given - Exam Quality Assessment: Reports: DVT Prophylaxis General: Reports: Alert, Oriented, Cooperative, No Acute Distress HEENT: Reports: Pupils Equal, EOMI, Mucous Membr. Moist/[place] Neck: Reports: Supple, Other (wound to rt nares, scabbed, no active bleeding, drainage, purulence. Tip of nose is with mild to moderate swelling and erythema , tender to touch but improved from yesterday) Lungs: Reports: Clear to Auscultation, Normal Respiratory Effort Cardiovascular: Reports: Regular Rate, Regular Rhythm (Male) Exam: Deferred Rectal (Males) Exam: Deferred Extremities: No Pedal Edema, Normal Capillary Refill Skin: Reports: Other (see above under nose exam) Wound/Incisions: Reports: Other (see above under nose) Neurological: Reports: No New Focal Deficit Psy/Mental Status: Reports: Alert, Normal Affect, Normal Mood *Q Meaningful Use (DIS) - VTE *Q VTE Criteria *Q: - Stroke *Q Stroke Criteria *Q: - AMI *Q AMI Criteria *Q:
[2017-10-15] MEDS: Levofloxacin/Dextrose 5%-Water 500 MG in Premix Bag 1 BAG IV SCH ×2 (12:02→14:52)
[2017-10-15] MEDS ORDERED: Sodium Chloride 0.9% 500 ML IV ONE (12:16)
[2017-10-15 12:31] VITALS: BP 147/97
[2017-10-15] MEDS: Vancomycin 1 GM, Vancomycin 250 MG in Sodium Chloride 0.9% 250 ML IV SCH ×2 (13:27→14:52)
== END 2017-10-15 15:15 | disposition home or self-care (01) | DRG 155 ==
LOC: JD.MS 10:52
PROVIDERS: ADMIT Internal Medicine; ATTEND Internal Medicine
DX: J34.0 Abscess, furuncle and carbuncle of nose (principal); C85.90 Non-Hodgkin lymphoma, unspecified, unspecified site; I13.0 Hypertensive heart and chronic kidney disease with heart failure and stage 1 through stage 4 chronic kidney disease, or unspecified chronic kidney disease; C91.10 Chronic lymphocytic leukemia of B-cell type not having achieved remission; C64.9 Malignant neoplasm of unspecified kidney, except renal pelvis; I25.10 Atherosclerotic heart disease of native coronary artery without angina pectoris; N18.2 Chronic kidney disease, stage 2 (mild); I50.9 Heart failure, unspecified; Z95.5 Presence of coronary angioplasty implant and graft; E03.9 Hypothyroidism, unspecified; G30.9 Alzheimer's disease, unspecified; F02.80 Dementia in other diseases classified elsewhere, unspecified severity, without behavioral disturbance, psychotic disturbance, mood disturbance, and anxiety; E78.5 Hyperlipidemia, unspecified; M51.16 Intervertebral disc disorders with radiculopathy, lumbar region; D50.9 Iron deficiency anemia, unspecified; N40.1 Benign prostatic hyperplasia with lower urinary tract symptoms; N39.498 Other specified urinary incontinence; J44.9 Chronic obstructive pulmonary disease, unspecified; D64.9 Anemia, unspecified; D69.6 Thrombocytopenia, unspecified; Z66 Do not resuscitate; M19.90 Unspecified osteoarthritis, unspecified site; H54.7 Unspecified visual loss; Z88.8 Allergy status to other drugs, medicaments and biological substances; Z79.899 Other long term (current) drug therapy
CPT/HCPCS: 36415; 70486; 70486-26; 80048; 83735; 85014; 85018; 85025; 86140; 87070; A9270-GY; J1650; J1956; J3370; J7040; J7050

== ENCOUNTER 2017-12-03 14:34 | Emergency (ER) | payer MEDICARE, OTHER ==
[2017-12-03 14:52] VITALS: BP 134/52
[2017-12-03] MEDS ORDERED: Sodium Chloride 0.9% 10 ML Syringe FLUSH PRN (15:16)
--- NOTE | 2017-12-03 15:17 | EDM.PDOC ---
ED HPI GENERAL MEDICAL PROBLEM - General Chief Complaint: Cardiovascular Problem Stated Complaint: SLURRED SPEECH/TROUBLE WALKING Time Seen by Provider: 12/03/17 14:50 Source of Information: Reports: Patient, RN Notes Reviewed - History of Present Illness INITIAL COMMENTS - FREE TEXT/NARRATIVE: 87-year-old gentleman has been brought in by private vehicle by his son-in-law for evaluation of slurred speech, unsteadiness on feet. This all occurred about its one hour ago. 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 His son-in-law noticed that his speech was somewhat slurred while on the way home on the drive back to [place] from [place]. They did get out of the car at his home he seemed unsteady on his feet. One of his providers was called and they did suggest coming here to the ED to have him checked out. Upon arrival to the ED this speech problem has completely cleared. He has no focal weakness on arrival to ED. No chest pain or difficulty breathing. No other acute symptomatology. He does have history of multiple medical problems including hypertension, congestive heart failure, lymphoma, hypothyroidism, chronic anemia, Alzheimer's disease. - Related Data Allergies Allergy/AdvReac Type Severity Reaction Status Date / Time meperidine HCl [From Demerol] Allergy Cannot Verified 12/03/17 14:52 Remember Home Meds: Home Meds Isosorbide Mononitrate [Isosorbide Mononitrate ER] 30 mg PO DAILY 05/10/17 [ History] Lisinopril 10 mg PO DAILY 05/10/17 [History] Metoprolol Succinate 50 mg PO DAILY 05/10/17 [History] Tamsulosin HCl 0.4 mg PO BID 05/10/17 [History] amLODIPine [Norvasc] 5 mg PO DAILY 05/10/17 [History] Levothyroxine [Synthroid] 88 mcg PO DAILY 08/13/17 [History] Galantamine Hbr [Galantamine HBr] 8 mg PO BID 10/14/17 [History] Temazepam 15 mg PO BEDTIME PRN 10/14/17 [History] Lactobac Cmb #3/Fos/Pantethine [Probiotic & Acidophilus] 1 each PO DAILY #7 capsule 10/15/17 [Rx] Nitroglycerin [Nitrostat] 0.4 mg SL ASDIRECTED PRN 12/03/17 [History] Past Medical History HEENT History: Reports: Cataract, Impaired Vision Other HEENT History: glasses and dentures Cardiovascular History: Reports: Bypass, CAD, Heart Failure, High Cholesterol, Hypertension, PR, Stents Other Cardiovascular History: PR yrs ago Respiratory History: Reports: COPD, Sleep Apnea Gastrointestinal History: Reports: GI Bleed Genitourinary History: Reports: BPH, Chronic Renal Insuffiency, Urinary Incontinence [employer] History: Reports: None Musculoskeletal History: Reports: Back Pain, Chronic, Osteoarthritis Neurological History: Reports: Alzheimers Disease, Seizure Psychiatric History: Reports: Dementia Other Psychiatric History: insomnia Endocrine/Metabolic History: Reports: Hypothyroidism Hematologic History: Reports: Blood Transfusion(s) Immunologic History: Reports: None Oncologic (Cancer) History: Reports: None Dermatologic History: Reports: Other (See Below) Other Dermatologic History: right anabaptist skin lesion - Infectious Disease History Infectious Disease History: Reports: [id number] Enterobacteriaceae , Measles, Mumps - Past Surgical History Head Surgeries/Procedures: Reports: None HEENT Surgical History: Reports: Adenoidectomy, Tonsillectomy Cardiovascular Surgical History: Reports: Coronary Artery Bypass Respiratory Surgical History: Reports: None GI Surgical History: Reports: Appendectomy, Colonoscopy, EGD, Hernia Repair/ Other Male Surgical History: Reports: None Neurological Surgical History: Reports: None Musculoskeletal Surgical History: Reports: Knee Replacement Other Musculoskeletal Surgeries/Procedures:: right knee Oncologic Surgical History: Reports: None Social & Family History - Family History Family Medical History: Noncontributory - Tobacco Use Smoking Status *Q: Former Smoker Years of Tobacco use: 10 Packs/Tins Daily: 1 Used Tobacco, but Quit: Yes Month Tobacco Last Used: 1987 Second Hand Smoke Exposure: No - Caffeine Use Caffeine Use: Reports: Coffee, Tea - Alcohol Use Days Per Week of Alcohol Use: 3 Number of Drinks Per Day: 1 Total Drinks Per Week: 3 - Recreational Drug Use Recreational Drug Use: No - Living Situation & Occupation Living situation: Reports: Occupation: Retired ED ROS GENERAL - Review of Systems Review Of Systems: See Below Constitutional: Denies: Fever, Chills, Diaphoresis HEENT: Denies: Throat Pain Respiratory: Denies: Shortness of Breath, Wheezing, Pleuritic Chest Pain Cardiovascular: Denies: Chest Pain Endocrine: Reports: Fatigue GI/Abdominal: Denies: Abdominal Pain, Nausea, Vomiting Musculoskeletal: Denies: Leg Pain Skin: Reports: No Symptoms Neurological: Reports: Dizziness, Trouble Speaking (Patient had slurred speech according to son-in-law for about 10-20 minutes), Difficulty Walking (Patient was noted to be unsteady on his feet leaving the car after getting home from [place] after radiation therapy today, no definite focal weakness or paralysis) , Weakness (Generalized). Denies: Numbness, Tingling ED EXAM, GENERAL - Physical Exam Exam: See Below General Appearance: Alert, No Apparent Distress Eye Exam: Bilateral Eye: PERRL Nose: Other (Inflammation and swelling visible distal nose) Throat/Mouth: Normal Inspection, Normal Oropharynx, Other (All mucosa mildly dry ) Head: Atraumatic Neck: Supple, Other (No JVD, fullness of soft tissue of neck bilateral) Respiratory/Chest: No Respiratory Distress, Lungs Clear, Normal Breath Sounds. No: Rales Cardiovascular: Regular Rate, Rhythm GI/Abdominal: Soft, Non-Tender Back Exam: No: CVA Tenderness (L), CVA Tenderness (R) Extremities: Normal Inspection, Normal Range of Motion. No: Leg Pain, Increased Warmth, Redness Neurological: Alert, No Motor/Sensory Deficits, Other (Short-term memory somewhat poor, history of Alzheimer's) Skin Exam: Warm, Dry, Normal Color EKG INTERPRETATION EKG Date: 12/03/17 Rhythm: Other (Sinus bradycardia, rate 47) [place]: Normal P-Wave: Present QRS: RBBB ST-T: Other (T-wave inversions inferior leads and also V3V6) Course - Vital Signs Last Recorded V/S: Last Vital Signs Temp 97.5 F 12/03/17 14:44 Pulse 43 L 12/03/17 14:44 Resp 22 H 12/03/17 14:44 BP 134/52 L 12/03/17 14:44 Pulse Ox 92 L 12/03/17 14:44 - Orders/Labs/Meds Orders: Active Orders 24 hr Category Date Time Status EKG 12 Lead [EKG Documentation Completion] [RC] STAT Care 12/03/17 15:16 Active Peripheral IV Care [RC] . DIRECTED Care 12/03/17 15:16 Active Sodium Chloride 0.9% [Normal Saline] 1,000 ml Med 12/03/17 15:30 Active IV ASDIRECTED Sodium Chloride 0.9% [Saline Flush] Med 12/03/17 15:16 Active 10 ml FLUSH ASDIRECTED PRN Peripheral IV Insertion Adult [OM.PC] Stat Oth 12/03/17 15:16 Ordered Medication Orders Sodium Chloride (Normal Saline) 1,000 mls @ 150 mls/hr IV ASDIRECTED GANGA Last Admin: 12/03/17 15:36 Dose: 150 mls/hr Sodium Chloride (Saline Flush) 10 ml FLUSH ASDIRECTED PRN PRN Reason: Keep Vein Open Last Admin: 12/03/17 15:36 Dose: 10 ml Labs: Laboratory Tests 12/03/17 12/03/17 Range/Units 15:25 15:25 WBC 4.18 L (4.23-9.07) K/mm3 RBC 2.76 L (4.63-6.08) M/mm3 Hgb 8.8 L (13.7-17.5) gm/L Hct 28.2 L (40.1-51.0) % MCV 102.2 H (79.0-92.2) fl MCH 31.9 (25.7-32.2) pg MCHC 31.2 L (32.2-35.5) g/dl RDW Std Deviation 76.9 H (35.1-43.9) fL Plt Count 51 L (163-337) K/mm3 MPV 11.0 (9.4-12.3) fl Neut % (Auto) 13.9 L (34.0-67.9) % Lymph % (Auto) 54.3 H (21.8-53.1) % [place] % (Auto) 31.8 H (5.3-12.2) % Eos % (Auto) 0 L (0.8-7.0) Baso % (Auto) 0.0 L (0.1-1.2) % Neut # (Auto) 0.58 L (1.78-5.38) K/mm3 Lymph # (Auto) 2.27 (1.32-3.57) K/mm3 [place] # (Auto) 1.33 H (0.30-0.82) K/mm3 Eos # (Auto) 0.00 L (0.04-0.54) K/mm3 Baso # (Auto) 0.00 L (0.01-0.08) K/mm3 Manual Slide Review Abnormal smear Sodium 139 (136-145) mEq/L Potassium 3.8 (3.5-5.1) mEq/L Chloride 104 (98-107) mEq/L Carbon Dioxide 27 (21-32) mEq/L Anion Gap 11.8 (5-15) BUN 20 H (7-18) mg/dL Creatinine 1.1 (0.7-1.3) mg/dL Est Cr Clr Drug Dosing 41.08 mL/min Estimated GFR (MDRD) > 60 (>60) mL/min BUN/Creatinine Ratio 18.2 H (14-18) Glucose 115 (83-115) mg/dL Calcium 8.8 (8.5-10.1) mg/dL Total Bilirubin 0.3 (0.2-1.0) mg/dL AST 22 (15-37) U/L ALT 23 (16-63) U/L Alkaline Phosphatase 125 H (46-116) U/L Total Protein 6.6 (6.4-8.2) g/dl Albumin 2.9 L (3.4-5.0) g/dl Globulin 3.7 gm/dL Albumin/Globulin Ratio 0.8 L (1-2) Meds: Medications Generic Name Dose Route Start Last Admin Trade Name Freq PRN Reason Stop Dose Admin Sodium Chloride 1,000 mls @ 150 mls/hr 12/03/17 15:30 12/03/17 15:36 Normal Saline IV 150 mls/hr ASDIRECTED GANGA Administration Sodium Chloride 10 ml 12/03/17 15:16 12/03/17 15:36 Saline Flush FLUSH 10 ml ASDIRECTED PRN Administration Keep Vein Open - Re-Assessments/Exams Free Text/Narrative Re-Assessment/Exam: 12/03/17 17:37, patient has maintained normal blood pressure while here in the ED. He has continued totally asymptomatic. Rectal exam was done after finding hemoglobin of 8.8 and that was heme-negative. He is getting radiation therapy to his nose daily Wednesday through Wednesday for the next 2 weeks. I did discuss getting him set up for carotid ultrasound and also cardiac echocardiogram. Family is concerned about how to get that done when he is having radiation therapy around noon each day in [place]. I suggested reaching Dr. Reynolds, his regular provider Wednesday, inquire if may be that testing could be done at [facility] if Dr. Reynolds feels that helpful, especially if he has not had that done anytime recently. His heart rate has stayed in the upper 40s for most of his ED visit. Or I am going to have them hold metoprolol for any further dosage today, tomorrow and then go to half of his current 50 mg dosage. Discharge instructions as documented. 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 Than resume at 1/2 of 50 mg tablet daily. You may have had a mild TIA today, or you may of just dropped your blood pressure a bit too low for a short period of time. Carotid ultrasound and cardiac echocardiogram would be a normal part of workup following the symptoms he did experience earlier today. Because of your radiation therapy Wednesday through Wednesday we realize it will be difficult for you to have those tests done here in [place] next week. I do suggest calling Dr. Reynolds, your regular medical provider Wednesday to discuss the possibility of having those tests done at [facility] while you are there rather than having to have those done here at [place]. Also if you have had those tests done somewhat recently Dr. Reynolds may feel that is unnecessary at this time. Follow-up with Dr. Reynolds for further evaluation and treatment as needed. Return to ED as needed if symptoms worsening in any way. - My Orders Last 24 Hours: My Active Orders 12/03/17 15:16 EKG 12 Lead [EKG Documentation Completion] [RC] STAT Peripheral IV Care [RC] . DIRECTED Sodium Chloride 0.9% [Saline Flush] 10 ml FLUSH ASDIRECTED PRN Peripheral IV Insertion Adult [OM.PC] Stat 12/03/17 15:30 Sodium Chloride 0.9% [Normal Saline] 1,000 ml IV ASDIRECTED - Assessment/Plan Last 24 Hours: My Active Orders 12/03/17 15:16 EKG 12 Lead [EKG Documentation Completion] [RC] STAT Peripheral IV Care [RC] . DIRECTED Sodium Chloride 0.9% [Saline Flush] 10 ml FLUSH ASDIRECTED PRN Peripheral IV Insertion Adult [OM.PC] Stat 12/03/17 15:30 Sodium Chloride 0.9% [Normal Saline] 1,000 ml IV ASDIRECTED
[2017-12-03] MEDS ORDERED: Sodium Chloride 0.9% 1,000 ML IV SCH (15:30)
--- NOTE | 2017-12-03 15:45 | CT ---
Head CT Technique: Multiple axial sections through the brain were obtained. Intravenous contrast was not utilized. Comparison: Prior head CT study of 04/12/15. Findings: Ventricles along with basal cisterns and sulci over convexities are mildly prominent. Diffuse diminished density is noted within the periventricular and subcortical white matter which is compatible with small vessel ischemic demyelination change. Atherosclerotic change is noted within the vertebral vessels and within the carotid siphon. No evidence of intracranial hemorrhage. No midline shift or mass effect is seen. Bone window settings were reviewed which shows small retention cyst within the sphenoid sinus measuring 9 mm. Mild mucosal thickening is noted within portions of the ethmoid sinuses and frontal sinuses. Fluid level is seen within the left mastoid sinus with areas of mucosal thickening. No acute calvarial abnormality is seen. Impression: 1. Fluid levels and mucosal thickening with left mastoid sinus. Difficult to exclude mastoiditis. 2. Findings within the paranasal sinuses compatible with mild chronic sinusitis. 3. Senescent change as noted above. No acute intracranial abnormality is identified. Diagnostic code #3
== END 2017-12-03 17:42 | disposition home or self-care (01) ==
LOC: JD.ED 14:34
DX: G45.8 Other transient cerebral ischemic attacks and related syndromes (principal); R00.1 Bradycardia, unspecified; D61.810 Antineoplastic chemotherapy induced pancytopenia; I13.0 Hypertensive heart and chronic kidney disease with heart failure and stage 1 through stage 4 chronic kidney disease, or unspecified chronic kidney disease; I50.9 Heart failure, unspecified; N18.9 Chronic kidney disease, unspecified; I25.10 Atherosclerotic heart disease of native coronary artery without angina pectoris; E03.9 Hypothyroidism, unspecified; G30.9 Alzheimer's disease, unspecified; F02.80 Dementia in other diseases classified elsewhere, unspecified severity, without behavioral disturbance, psychotic disturbance, mood disturbance, and anxiety; Z79.899 Other long term (current) drug therapy; Z88.5 Allergy status to narcotic agent; Z95.1 Presence of aortocoronary bypass graft; Z87.891 Personal history of nicotine dependence
CPT/HCPCS: 36415; 70450; 80053; 85025; 93005; 96360; 96361; 99285; J7040; J7050; 99284

== ENCOUNTER 2017-12-31 13:14 | Inpatient (IN) | payer MEDICARE ==
--- NOTE | 2017-12-31 15:17 | CT ---
Head CT Technique: Multiple axial sections through the brain were obtained. Intravenous contrast was not utilized. Comparison: Previous head CT exam of 12/03/17. Findings: Ventricles along with basal cisterns and sulci over convexities are moderately prominent. Diffuse diminished density is noted within the periventricular white matter compatible with small vessel ischemic demyelination change. Minimal findings are seen within the basal ganglia which are felt to be of similar etiology. No evidence of intracranial hemorrhage. No midline shift or mass effect is seen. Atherosclerotic calcification is noted within the vertebral vessels and carotid siphon. Small skin lesion is noted within the posterior upper neck believed to be incidental. Bone window settings were reviewed which shows no acute calvarial abnormality. Small amount of fluid is seen within the left mastoid sinus. Retention cyst is noted within the sphenoid sinus measuring 9 mm. Mild mucosal thickening is noted within the ethmoid and frontal sinuses. Air-fluid level is seen within the left maxillary sinus. Impression: 1. Sinus findings which include an air-fluid level within left maxillary sinus. Several air-fluid levels seen within the left mastoid sinus. Mastoid findings are seen on prior study. Please correlate if patient has any infectious symptoms to indicate sinusitis or mastoiditis. 2. Senescent change as noted above. No acute intracranial abnormality is identified. Diagnostic code #3
[2017-12-31] MEDS ORDERED: Acetaminophen 325 MG Tab PO ONE (15:20)
--- NOTE | 2017-12-31 16:03 | EDM.PDOC ---
ED HPI GENERAL MEDICAL PROBLEM - General Chief Complaint: General Stated Complaint: FATIGUE/FALLING/VOMITING/BLOODYNOSE POST RADIATION Time Seen by Provider: 12/31/17 13:38 Source of Information: Reports: Patient, Family History Limitations: Reports: No Limitations - History of Present Illness INITIAL COMMENTS - FREE TEXT/NARRATIVE: 87 y/o M with hx lymphoma, CAD, CHF, mild dementia, prior GI bleeds and anemia requiring transfusion, presents with several concerns. 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 Since then, he's had a couple of his sores that have been bleeding almost continuously for several days. He's also feeling generally weak. He's had two or three falls in the last several days, all unwitnessed. He doesn't recall details. Daughter states they've occurred at night. Patient states he feels ok just weak. No fever. No cough/CP/SOB. No abd pain/vomiting/diarrhea. No urinary symptoms. Denies headache. Has moderate pain in his facial area in distribution of recent radiation. Lives at home with and has had extra help from family lately, but daughter is returning home this weekend. Daughter is concerned about his safety at home. - Related Data Allergies Allergy/AdvReac Type Severity Reaction Status Date / Time meperidine HCl [From Demerol] Allergy Cannot Verified 12/31/17 19:15 Remember Home Meds: Home Meds Isosorbide Mononitrate [Isosorbide Mononitrate ER] 30 mg PO DAILY 05/10/17 [ History] Lisinopril 10 mg PO DAILY 05/10/17 [History] Metoprolol Succinate 50 mg PO DAILY 05/10/17 [History] Tamsulosin HCl 0.4 mg PO BID 05/10/17 [History] amLODIPine [Norvasc] 5 mg PO DAILY 05/10/17 [History] Levothyroxine [Synthroid] 88 mcg PO DAILY 08/13/17 [History] Galantamine Hbr [Galantamine HBr] 8 mg PO BID 10/14/17 [History] Temazepam 15 mg PO BEDTIME PRN 10/14/17 [History] Nitroglycerin [Nitrostat] 0.4 mg SL ASDIRECTED PRN 12/03/17 [History] Lidocaine 2% [Xylocaine 2% Jelly] 1 applic BUCCAL 5XDAY 12/31/17 [History] Multivitamin with Minerals [Multivitamins with Minerals] 1 each PO DAILY [History] Mupirocin Oint [Bactroban Oint] 1 applic TOP BID 12/31/17 [History] Veenbbmx-Vcwostkhku-Qvlrxjbcr. 1 applic TOP TID 12/31/17 [History] Sodium Chloride [Saline Nasal Miller] 2 sprays NASBOTH BID PRN 12/31/17 [History] Timolol Maleate [Timoptic-XE 0.5% Opth Gel] 1 drop .ROUTE DAILY 12/31/17 [ History] metroNIDAZOLE [Flagyl] 500 mg PO TID 12/31/17 [History] Past Medical History HEENT History: Reports: Cataract, Impaired Vision Other HEENT History: glasses and dentures Cardiovascular History: Reports: Bypass, CAD, Heart Failure, High Cholesterol, Hypertension, AL, Stents Other Cardiovascular History: AL yrs ago Respiratory History: Reports: COPD, Sleep Apnea Gastrointestinal History: Reports: GI Bleed Genitourinary History: Reports: BPH, Chronic Renal Insuffiency, Urinary Incontinence [employer]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[employer]Y History: Reports: None Musculoskeletal History: Reports: Back Pain, Chronic, Osteoarthritis Neurological History: Reports: Alzheimers Disease, Seizure Psychiatric History: Reports: Dementia Other Psychiatric History: insomnia Endocrine/Metabolic History: Reports: Hypothyroidism Hematologic History: Reports: Blood Transfusion(s) Immunologic History: Reports: None Oncologic (Cancer) History: Reports: None Dermatologic History: Reports: Other (See Below) Other Dermatologic History: right lutheran skin lesion - Infectious Disease History Infectious Disease History: Reports: RBM-Jcoktzommr-Rdvpkfqei Enterobacteriaceae , Measles, Mumps - Past Surgical History Head Surgeries/Procedures: Reports: None HEENT Surgical History: Reports: Adenoidectomy, Tonsillectomy Cardiovascular Surgical History: Reports: Coronary Artery Bypass Respiratory Surgical History: Reports: None GI Surgical History: Reports: Appendectomy, Colonoscopy, EGD, Hernia Repair/ Other Male Surgical History: Reports: None Neurological Surgical History: Reports: None Musculoskeletal Surgical History: Reports: Knee Replacement Other Musculoskeletal Surgeries/Procedures:: right knee Oncologic Surgical History: Reports: None Social & Family History - Family History Family Medical History: Noncontributory - Tobacco Use Smoking Status *Q: Former Smoker Years of Tobacco use: 10 Packs/Tins Daily: 1 Used Tobacco, but Quit: Yes Month/Year Tobacco Last Used: 40 Second Hand Smoke Exposure: No - Caffeine Use Caffeine Use: Reports: Coffee, Soda, Tea - Alcohol Use Days Per Week of Alcohol Use: 3 Number of Drinks Per Day: 1 Total Drinks Per Week: 3 - Recreational Drug Use Recreational Drug Use: No - Living Situation & Occupation Living situation: Reports: Occupation: Retired ED ROS GENERAL - Review of Systems Review Of Systems: See Below Constitutional: Reports: Weakness, Fatigue. Denies: Fever HEENT: Reports: Nosebleed, Other (facial pain ) Respiratory: Denies: Shortness of Breath, Wheezing, Cough Cardiovascular: Denies: Chest Pain Endocrine: Reports: Fatigue GI/Abdominal: Denies: Abdominal Pain, Vomiting Musculoskeletal: Reports: No Symptoms Skin: Reports: Wound Neurological: Denies: Headache Psychiatric: Reports: No Symptoms Hematologic/Lymphatic: Reports: Anemia ED EXAM, GENERAL - Physical Exam Exam: See Below Exam Limited By: No Limitations General Appearance: Alert, WD/WN, No Apparent Distress Eye Exam: Bilateral Eye: EOMI, Normal Inspection Ears: Normal External Exam Nose: Other (ulcerations on mucosal surface of distal nares bilaterally with stigmata of recent bleeding. no active bleeding. no clot ) Head: Other (patch of confluent erythama over midface area including entire nose consistent with recent radiation therapy) Neck: Supple Respiratory/Chest: No Respiratory Distress, Lungs Clear, Normal Breath Sounds, No Accessory Muscle Use, Chest Non-Tender Cardiovascular: Normal Peripheral Pulses, Regular Rate, Rhythm, No Edema, No Murmur GI/Abdominal: Soft, Non-Tender, No Distention Rectal (Males) Exam: Normal Exam, Normal Rectal Tone, Other (minimal stool in the vault, trace guaic positive ) Extremities: Normal Inspection Neurological: Alert, Oriented, CN II-XII Intact, Normal Cognition, No Motor/ Sensory Deficits Psychiatric: Normal Affect, Normal Mood Skin Exam: Warm, Dry, Intact, Normal Color, No Rash Course - Vital Signs Last Recorded V/S: Last Vital Signs Temp 36.8 C 12/31/17 13:35 Pulse 57 L 12/31/17 17:14 Resp 20 12/31/17 17:14 BP 107/48 L 12/31/17 17:47 Pulse Ox 95 12/31/17 17:14 - Orders/Labs/Meds Orders: Active Orders 24 hr Category Date Time Status Chest 1V Frontal [CR] Stat Exams 12/31/17 14:03 Taken Medication Orders Hydrocodone Bitart/Acetaminophen ([place] 325-5 Mg) 1 tab PO Q4H PRN PRN Reason: Pain (moderate 4-6) Albuterol/Ipratropium (Duoneb 3.0-0.5 Mg/3 Ml) 3 ml NEB Q4H PRN PRN Reason: Shortness Of Breath/wheezing Amlodipine Besylate (Norvasc) 5 mg PO DAILY [facility] Bisacodyl (Dulcolax) 5 mg PO DAILY PRN PRN Reason: Constipation Docusate Sodium (Colace) 100 mg PO BID PRN PRN Reason: Constipation Galantamine Hydrobromide (Razadyne) 8 mg PO BID [facility] Hydromorphone HCl (Dilaudid) 0.25 mg IVPUSH Q4H PRN PRN Reason: Pain (severe 7-10) Promethazine HCl 6.25 mg/ (Sodium Chloride) 50.25 mls @ 100 mls/hr IV Q6H PRN PRN Reason: Nausea/Vomiting Sodium Chloride (Normal Saline) 1,000 mls @ 50 mls/hr IV ASDIRECTED [facility] Isosorbide Mononitrate (Imdur) 30 mg PO DAILY [facility] Levothyroxine Sodium (Synthroid) 88 mcg PO ACBRK [facility] Lisinopril (Prinivil) 10 mg PO DAILY [facility] Lorazepam (Ativan) 0.25 mg IV Q6H PRN PRN Reason: Anxiety Metoprolol Succinate (Toprol Xl) 50 mg PO DAILY [facility] Metronidazole (Flagyl) 500 mg PO TID [facility] Mupirocin (Bactroban Oint) 0 gm TOP BID [facility] Nitroglycerin (Nitrostat) 0.4 mg SL ASDIRECTED PRN PRN Reason: Chest Pain Non-Formulary Medication (Lidocaine 2%) 1 applic BUCCAL 5XDAY [facility] Non-Formulary Medication (Multivitamin With Minerals [Multivitamins With Minerals]) 1 each PO DAILY [facility] Non-Formulary Medication (Abpymjms-Pqajzpkfur-Jkqjvzgdg.) 1 applic TOP TID [facility] Non-Formulary Medication (Timolol Maleate [Timoptic-Xe 0.5% Ophth Gel]) 1 drop .ROUTE DAILY [facility] Ondansetron HCl (Zofran) 4 mg IV Q6H PRN PRN Reason: Nausea/Vomiting Oxymetazoline HCl (Afrin Original 0.05% Nasal Miller) 15 ml TRUDY Q12HR PRN PRN Reason: Congestion Polyethylene Glycol (Miralax) 17 gm PO DAILY PRN PRN Reason: Constipation Senna/Docusate Sodium (Senna Plus) 1 tab PO BID PRN PRN Reason: Constipation Sodium Chloride ([place] Nasal Miller) 0 ml NASBOTH BID PRN PRN Reason: Dryness Tamsulosin HCl (Flomax) 0.4 mg PO BID [facility] Temazepam (Restoril) 15 mg PO BEDTIME PRN PRN Reason: Sleep Labs: Laboratory Tests 12/31/17 12/31/17 12/31/17 Range/Units 14:20 14:20 14:20 WBC 3.12 L (4.23-9.07) K/mm3 RBC 2.48 L (4.63-6.08) M/mm3 Hgb 8.0 L (13.7-17.5) gm/L Hct 26.5 L (40.1-51.0) % MCV 106.9 H (79.0-92.2) fl MCH 32.3 H (25.7-32.2) pg MCHC 30.2 L (32.2-35.5) g/dl RDW Std Deviation 77.6 H (35.1-43.9) fL Plt Count 38 L (163-337) K/mm3 MPV 12.4 H (9.4-12.3) fl Neut % (Auto) 4.5 L (34.0-67.9) % Lymph % (Auto) 65.4 H (21.8-53.1) % [place] % (Auto) 29.8 H (5.3-12.2) % Eos % (Auto) 0.3 L (0.8-7.0) Baso % (Auto) 0.0 L (0.1-1.2) % Neut # (Auto) 0.14 L (1.78-5.38) K/mm3 Lymph # (Auto) 2.04 (1.32-3.57) K/mm3 [place] # (Auto) 0.93 H (0.30-0.82) K/mm3 Eos # (Auto) 0.01 L (0.04-0.54) K/mm3 Baso # (Auto) 0.00 L (0.01-0.08) K/mm3 Manual Slide Review Abnormal smear PT 10.7 (8.0-13.0) SECONDS INR 1.00 Sodium 142 (136-145) mEq/L Potassium 4.3 (3.5-5.1) mEq/L Chloride 107 (98-107) mEq/L Carbon Dioxide 29 (21-32) mEq/L Anion Gap 10.3 (5-15) BUN 19 H (7-18) mg/dL Creatinine 1.0 (0.7-1.3) mg/dL Est Cr Clr Drug Dosing 45.19 mL/min Estimated GFR (MDRD) > 60 (>60) mL/min BUN/Creatinine Ratio 19.0 H (14-18) Glucose 117 H (83-115) mg/dL Calcium 8.7 (8.5-10.1) mg/dL Total Bilirubin 0.3 (0.2-1.0) mg/dL AST 21 (15-37) U/L ALT 21 (16-63) U/L Alkaline Phosphatase 163 H (46-116) U/L Troponin I < 0.017 (0.00-0.056) ng/mL Total Protein 6.8 (6.4-8.2) g/dl Albumin 2.9 L (3.4-5.0) g/dl Globulin 3.9 gm/dL Albumin/Globulin Ratio 0.7 L (1-2) Urine Color (Yellow) Urine Appearance (Clear) Urine pH (5.0-8.0) Ur Specific [place] (1.005-1.030) Urine Protein (Negative) Urine Glucose (UA) (Negative) Urine Ketones (Negative) Urine Occult Blood (Negative) Urine Nitrite (Negative) Urine Bilirubin (Negative) Urine Urobilinogen (0.2-1.0) Ur Leukocyte Esterase (Negative) Urine RBC (0-5) /hpf Urine WBC (0-5) /hpf Ur Epithelial Cells (0-5) /hpf Urine Bacteria (FEW) /hpf Urine Mucus (FEW) /hpf 12/31/17 Range/Units 15:10 WBC (4.23-9.07) K/mm3 RBC (4.63-6.08) M/mm3 Hgb (13.7-17.5) gm/L Hct (40.1-51.0) % MCV (79.0-92.2) fl MCH (25.7-32.2) pg MCHC (32.2-35.5) g/dl RDW Std Deviation (35.1-43.9) fL Plt Count (163-337) K/mm3 MPV (9.4-12.3) fl Neut % (Auto) (34.0-67.9) % Lymph % (Auto) (21.8-53.1) % [place] % (Auto) (5.3-12.2) % Eos % (Auto) (0.8-7.0) Baso % (Auto) (0.1-1.2) % Neut # (Auto) (1.78-5.38) K/mm3 Lymph # (Auto) (1.32-3.57) K/mm3 [place] # (Auto) (0.30-0.82) K/mm3 Eos # (Auto) (0.04-0.54) K/mm3 Baso # (Auto) (0.01-0.08) K/mm3 Manual Slide Review PT (8.0-13.0) SECONDS INR Sodium (136-145) mEq/L Potassium (3.5-5.1) mEq/L Chloride (98-107) mEq/L Carbon Dioxide (21-32) mEq/L Anion Gap (5-15) BUN (7-18) mg/dL Creatinine (0.7-1.3) mg/dL Est Cr Clr Drug Dosing mL/min Estimated GFR (MDRD) (>60) mL/min BUN/Creatinine Ratio (14-18) Glucose (83-115) mg/dL Calcium (8.5-10.1) mg/dL Total Bilirubin (0.2-1.0) mg/dL AST (15-37) U/L ALT (16-63) U/L Alkaline Phosphatase (46-116) U/L Troponin I (0.00-0.056) ng/mL Total Protein (6.4-8.2) g/dl Albumin (3.4-5.0) g/dl Globulin gm/dL Albumin/Globulin Ratio (1-2) Urine Color Yellow (Yellow) Urine Appearance Clear (Clear) Urine pH 6.5 (5.0-8.0) Ur Specific [place] 1.010 (1.005-1.030) Urine Protein Negative (Negative) Urine Glucose (UA) Negative (Negative) Urine Ketones Negative (Negative) Urine Occult Blood Negative (Negative) Urine Nitrite Negative (Negative) Urine Bilirubin Negative (Negative) Urine Urobilinogen 0.2 (0.2-1.0) Ur Leukocyte Esterase Negative (Negative) Urine RBC Not seen (0-5) /hpf Urine WBC Not seen (0-5) /hpf Ur Epithelial Cells 0-5 (0-5) /hpf Urine Bacteria Not seen (FEW) /hpf Urine Mucus Not seen (FEW) /hpf Meds: Medications Generic Name Dose Route Start Last Admin Trade Name Freq PRN Reason Stop Dose Admin Hydrocodone Bitart/Acetaminophen 1 tab 12/31/17 19:08 [place] 325-5 Mg PO Q4H PRN Pain (moderate 4-6) Albuterol/Ipratropium 3 ml 12/31/17 19:08 Duoneb 3.0-0.5 Mg/3 Ml NEB Q4H PRN Shortness Of Breath/wheezing Amlodipine Besylate 5 mg 01/01/18 09:00 Norvasc PO DAILY [facility] Bisacodyl 5 mg 12/31/17 19:08 Dulcolax PO DAILY PRN Constipation Docusate Sodium 100 mg 12/31/17 19:08 Colace PO BID PRN Constipation Galantamine Hydrobromide 8 mg 12/31/17 21:00 Razadyne PO BID [facility] Hydromorphone HCl 0.25 mg 12/31/17 19:08 Dilaudid IVPUSH Q4H PRN Pain (severe 7-10) Promethazine HCl 6.25 mg/ 50.25 mls @ 100 mls/hr 12/31/17 19:08 Sodium Chloride IV Q6H PRN Nausea/Vomiting Sodium Chloride 1,000 mls @ 50 mls/hr 12/31/17 19:15 Normal Saline IV ASDIRECTED [facility] Isosorbide Mononitrate 30 mg 01/01/18 09:00 Imdur PO DAILY [facility] Levothyroxine Sodium 88 mcg 01/01/18 06:00 Synthroid PO ACBRK [facility] Lisinopril 10 mg 01/01/18 09:00 Prinivil PO DAILY [facility] Lorazepam 0.25 mg 12/31/17 19:08 Ativan IV Q6H PRN Anxiety Metoprolol Succinate 50 mg 01/01/18 09:00 Toprol Xl PO DAILY [facility] Metronidazole 500 mg 12/31/17 21:00 Flagyl PO TID [facility] Mupirocin 0 gm 12/31/17 21:00 Bactroban Oint TOP BID [facility] Nitroglycerin 0.4 mg 12/31/17 19:14 Nitrostat SL ASDIRECTED PRN Chest Pain Non-Formulary Medication 1 applic 12/31/17 22:00 Lidocaine 2% BUCCAL 5XDAY [facility] Non-Formulary Medication 1 each 01/01/18 09:00 Multivitamin With Minerals [Multivitamins With Minerals] PO DAILY [facility] Non-Formulary Medication 1 applic 12/31/17 21:00 Avpuopiz-Hvaggbdnnn-Qadbzbwih. TOP TID [facility] Non-Formulary Medication 1 drop 01/01/18 09:00 Timolol Maleate [Timoptic-Xe 0.5% Ophth Gel] .ROUTE DAILY [facility] Ondansetron HCl 4 mg 12/31/17 19:08 Zofran IV Q6H PRN Nausea/Vomiting Oxymetazoline HCl 15 ml 12/31/17 19:18 Afrin Original 0.05% Nasal [place] TRUDY Q12HR PRN Congestion Polyethylene Glycol 17 gm 12/31/17 19:08 Miralax PO DAILY PRN Constipation Senna/Docusate Sodium 1 tab 12/31/17 19:08 Senna Plus PO BID PRN Constipation Sodium Chloride 0 ml 12/31/17 19:14 [place] Nasal [place] NASBOTH BID PRN Dryness Tamsulosin HCl 0.4 mg 12/31/17 21:00 Flomax PO BID [facility] Temazepam 15 mg 12/31/17 19:14 Restoril PO BEDTIME PRN Sleep Discontinued Medications Generic Name Dose Route Start Last Admin Trade Name Freq PRN Reason Stop Dose Admin Acetaminophen 650 mg 12/31/17 15:20 12/31/17 15:30 Tylenol PO 12/31/17 15:21 650 mg NOW ONE Administration - Re-Assessments/Exams Free Text/Narrative Re-Assessment/Exam: 12/31/17 16:[address] Mendoza who agrees to admit the patient for monitoring, serial H/H, and further care. 12/31/17 16:29 chest x-ray shows no acute abnormality. labs significant for low h/h, with hemoglobin 8.0 (down from 9.2 at clinic 4 days ago). rectal exam with trace guaic stool. has had venous oozing from ulcers on nose. normal vitals. given mild drop in h/h, will continue to monitor anticipating he may need transfusion if continues to drop. remaining labs ok. CT head shows no acute abnormality. given multiple falls, concern for patient safety at home. will admit for monitoring of symptomatic anemia and possible GI bleed. Departure - Departure Time of Disposition: 16:31 Disposition: Admitted As Inpatient 64 Clinical Impression: Nasal septal ulcer, Physical deconditioning Anemia Qualifiers: Anemia type: bone marrow failure Bone marrow failure anemia type: pancytopenia , antineoplastic chemotherapy-induced Qualified Code(s): D61.810 - Antineoplastic chemotherapy induced pancytopenia Fall Qualifiers: Encounter type: initial encounter Qualified Code(s): W19.XXXA - Unspecified fall, initial encounter - Discharge Information - My Orders Last 24 Hours: My Active Orders 12/31/17 14:03 Chest 1V Frontal [CR] Stat - Assessment/Plan Last 24 Hours: My Active Orders 12/31/17 14:03 Chest 1V Frontal [CR] Stat
--- NOTE | 2017-12-31 17:22 | PCM.HP ---
H&P History of Present Illness - General Date of Service: 12/31/17 Admit Problem/Dx: Admission Diagnosis/Problem Admission Diagnosis/Problem Falls Source of Information: Patient, Family, Old Records, Provider, RN Notes Reviewed History Limitations: Reports: No Limitations, Other (Baseline Dementia) - History of Present Illness Initial Comments - Free Text/Narative: This is an 87 yo elderly white male Impaired Vision, CAD S/p CABG, HF with Unknown EF, HTN, HLD, COPD, Sleep Apnea, Hx/o GI Bleed with blood transfusions, BPH, Chronic Renal Insufficiency, Urinary Incontinence, Back Pain, OA/DJD, Seizure Disorder, Hypothyroidism, Insomnia, Alzheimer's Dementia, Lymphoma and Skin Cancer S/p Radiation who comes in for evaluation of multiple issues of generalized weakness/tiredness, 2-3 episode of unwitnessed falls, moderate facial pain and bloody nose S/p radiation therapy. He denies any chest pain or shortness of breath. No fever, chills, gastrointestinal issues, and other signs of systemic infections. His initial workup in the emergency department shows a CBC significantly remarkable for WBC of 3.12, RBC of 2.48, hemoglobin of 8, hematocrit of 26.5, MCV of 106.9, MCH of 32.3, RDW of 77.6, platelet of 38, MPV of 12.4, neutrophils of 4.5%, lymphocyte of 65.4%, monocytes of 29.8%, eosinophils of 0.3%, and basophils of 0%. His coagulation study shows PT of 10.7 and INR of 1. His chemistry is remarkable for BUN of 19, glucose of 117, alkaline phosphatase of 163, and albumin of 2.9. His UA is negative for urinary tract infection. Head CT scan report reads sinus finding of air fluid level within the left maxillary sinus cigarette air fluid level seen within the left mastoid sinus. Mastoid findings are seen on prior study. Senescent change. No acute intracranial abnormality is identified. Chest x-ray showed no acute intra-cranial abnormality. Patient is being admitted for pancytopenia, generalized weakness and unwitnessed falls. He is DNR/DNI. - Related Data Allergies/Adverse Reactions: Allergies Allergy/AdvReac Type Severity Reaction Status Date / Time meperidine HCl [From Demerol] Allergy Cannot Verified 12/31/17 19:15 Remember Home Medications: Home Meds Isosorbide Mononitrate [Isosorbide Mononitrate ER] 30 mg PO DAILY 05/10/17 [ History] Lisinopril 10 mg PO DAILY 05/10/17 [History] Metoprolol Succinate 50 mg PO DAILY 05/10/17 [History] Tamsulosin HCl 0.4 mg PO BID 05/10/17 [History] amLODIPine [Norvasc] 5 mg PO DAILY 05/10/17 [History] Levothyroxine [Synthroid] 88 mcg PO DAILY 08/13/17 [History] Galantamine Hbr [Galantamine HBr] 8 mg PO BID 10/14/17 [History] Temazepam 15 mg PO BEDTIME PRN 10/14/17 [History] Nitroglycerin [Nitrostat] 0.4 mg SL ASDIRECTED PRN 12/03/17 [History] Lidocaine 2% [Xylocaine 2% Jelly] 1 applic BUCCAL 5XDAY 12/31/17 [History] Multivitamin with Minerals [Multivitamins with Minerals] 1 each PO DAILY [History] Mupirocin Oint [Bactroban Oint] 1 applic TOP BID 12/31/17 [History] Bogmazkn-Zeafmympvr-Dmsusgmcg. 1 applic TOP TID 12/31/17 [History] Sodium Chloride [Saline Nasal [place]] 2 sprays NASBOTH BID PRN 12/31/17 [History] Timolol Maleate [Timoptic-XE 0.5% Opth Gel] 1 drop .ROUTE DAILY 12/31/17 [ History] metroNIDAZOLE [Flagyl] 500 mg PO TID 12/31/17 [History] Past Medical History HEENT History: Reports: Cataract, Impaired Vision Other HEENT History: glasses and dentures Cardiovascular History: Reports: Bypass, CAD, Heart Failure, High Cholesterol, Hypertension, [place], Stents Other Cardiovascular History: [place] yrs ago Respiratory History: Reports: COPD, Sleep Apnea Gastrointestinal History: Reports: GI Bleed Genitourinary History: Reports: BPH, Chronic Renal Insuffiency, Urinary Incontinence 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 Musculoskeletal History: Reports: Back Pain, Chronic, Osteoarthritis Neurological History: Reports: Alzheimers Disease, Seizure Psychiatric History: Reports: Dementia Other Psychiatric History: insomnia Endocrine/Metabolic History: Reports: Hypothyroidism Hematologic History: Reports: Blood Transfusion(s) Immunologic History: Reports: None Oncologic (Cancer) History: Reports: None Dermatologic History: Reports: Other (See Below) Other Dermatologic History: right mandaeism skin lesion - Infectious Disease History Infectious Disease History: Reports: GIZ-Byggrasbwy-Ivxtsloqi Enterobacteriaceae , Measles, Mumps - Past Surgical History Head Surgeries/Procedures: Reports: None HEENT Surgical History: Reports: Adenoidectomy, Tonsillectomy Cardiovascular Surgical History: Reports: Coronary Artery Bypass Respiratory Surgical History: Reports: None GI Surgical History: Reports: Appendectomy, Colonoscopy, EGD, Hernia Repair/ Other Male Surgical History: Reports: None Neurological Surgical History: Reports: None Musculoskeletal Surgical History: Reports: Knee Replacement Other Musculoskeletal Surgeries/Procedures:: right knee Oncologic Surgical History: Reports: None Social & Family History - Family History Family Medical History: Noncontributory - Tobacco Use Smoking Status *Q: Former Smoker Years of Tobacco use: 10 Packs/Tins Daily: 1 Used Tobacco, but Quit: Yes Month/Year Tobacco Last Used: 40 Second Hand Smoke Exposure: No - Caffeine Use Caffeine Use: Reports: Coffee, Soda, Tea - Alcohol Use Days Per Week of Alcohol Use: 3 Number of Drinks Per Day: 1 Total Drinks Per Week: 3 - Recreational Drug Use Recreational Drug Use: No - Living Situation & Occupation Living situation: Reports: Occupation: Retired H&P Review of Systems - Review of Systems: Review Of Systems: See Below General: Reports: Fatigue, Other (tired). Denies: Fever, Chills, Malaise, Weakness HEENT: Reports: Sinus Congestion, Other (Nose bleed). Denies: Eye Pain, Headaches, Hearing Changes, Visual Changes Pulmonary: Denies: Shortness of Breath Cardiovascular: Denies: Chest Pain, Palpitations, Dyspnea on Exertion, Lightheadedness Gastrointestinal: Denies: Abdominal Pain, Anorexia, Constipation, Diarrhea, Decreased Appetite, Difficulty Swallowing, Nausea, Vomiting Genitourinary: Reports: No Symptoms Musculoskeletal: Reports: No Symptoms Skin: Reports: Erythema (facial), Lesions (Nasal region). Denies: Cyanosis, Jaundice, Mottled, Pallor, Diaphoresis, Bruising, Pruritis, Rash Psychiatric: Reports: Confusion (baseline confusion). Denies: Depression, Anxiety, Agitation, Cravings, Hallucinations, Suicidal Ideation, Homicidal Ideation Neurological: Denies: Dizziness, Headache, Numbness, Pre-Existing Deficit, Seizure, Syncope, Tingling, Tremors, Trouble Speaking, Difficulty Walking, Weakness, Change in Speech, Gait Disturbance Hematologic/Lymphatic: Reports: Anemia Immunologic: Reports: No Symptoms Exam - Exam Exam: See Below - Vital Signs Vital Signs: Last Vital Signs Temp 36.8 C 12/31/17 13:35 Pulse 59 L 12/31/17 13:35 Resp 26 H 12/31/17 13:35 BP 146/53 H 12/31/17 13:35 Pulse Ox 90 L 12/31/17 13:35 Weight: 68.039 kg - Exam General: Alert, Cooperative. No: Mild Distress HEENT: Conjunctiva Clear, EACs Clear, EOMI, Hearing Intact, Mucosa Moist & [place] , Posterior Pharynx Clear, Pupils Equal, Pupils Reactive, Rhinitis, Other ( facial erythema). No: Nares Patent (ulcerated lesion on distal nares), Normal Nasal Septum Neck: Supple, Trachea Midline, +2 Carotid Pulse wo Bruit Lungs: Clear to Auscultation, Normal Respiratory Effort Cardiovascular: Regular Rate, Regular Rhythm GI/Abdominal Exam: Normal Bowel Sounds, Soft, Non-Tender, No Organomegaly, No Distention, No Abnormal Bruit, No Mass (Male) Exam: Deferred Rectal (Males) Exam: Deferred Back Exam: Normal Inspection, Decreased Range of Motion Extremities: Normal Inspection, Normal Range of Motion, Non-Tender, No Pedal Edema, Normal Capillary Refill Peripheral Pulses: 2+: Posterior Tibial (L), Posterior Tibial (R), Dorsalis Pedis (L), Dorsalis Pedis (R) Skin: Warm, Dry, Intact Neuro Extensive - Mental Status: Normal Mood/Affect, Normal Cognition Neuro Extensive - Motor, Sensory, Reflexes: CN II-XII Intact, Normal Gait Psychiatric: Alert, Normal Mood. No: Normal Affect, Suicidal Ideation, Hallucinations - Patient Data Result Diagrams: 01/01/18 05:40 01/01/18 05:40 *Q Meaningful Use (ADM) - VTE *Q VTE Criteria *Q: - Stroke *Q Stroke Criteria *Q: - AMI *Q AMI Criteria *Q: Problem List Initiated/Reviewed/Updated: Yes Orders Last 24hrs: Active Orders 24 hr Category Date Time Status Patient Status [ADT] Routine ADT 12/31/17 16:49 Active Assessment/Plan Comment:: Assessment/Plan: Acute: Pancytopenia - Acute vs Chronic - Low: WBC, RBC, Hgb, Hct, Platelet, other bone marrow cell lines - Folic Acid, Vit B 12 and MMA level - Monitor Hgb - Hemoccult pos - Recent transfusion was back in October according to daughter - Dr. Douglass consulted for further evaluation; will see him tomorrow Maxillary Sinusitis - S/p Radiation - Supportive Care and Nasal Decongestant - Anti-inflammatory agent - Hold off antibiotic for now Generalized Weakness/Tiredness - Risk factor: Advanced Age and Dementia - Likely 2/2 Pancytopenia from Malignancy - Hgb is 8-he states he is right about in this range but daughter disagrees - Hgb by history is bet 8-9 - In oral intake is good according to him - Vit D level and Thyroid Panel - PT/OT consult S/p Fall - Has had 2-3 unwitnessed fall in the past several days - Risk factors: OA/DJD, Dementia, Insomnia, Impaired Vision and Urinary Incontinence - Was told family is able to take care of him with and [facility] as care givers 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
[2017-12-31] MEDS ORDERED: LORazepam 2 MG/ML SDV IV PRN (19:08)
[2017-12-31] MEDS ORDERED: Bisacodyl 5 MG Tab PO PRN (19:08)
[2017-12-31] MEDS ORDERED: Promethazine 6.25 MG in Sodium Chloride 0.9% 50 ML IV PRN (19:08)
[2017-12-31] MEDS ORDERED: Albuterol/Ipratropium 3.0-0.5 MG/3 ML Neb Soln NEB PRN (19:08)
[2017-12-31] MEDS ORDERED: Ondansetron 4 MG/2 ML SDV IV PRN (19:08)
[2017-12-31] MEDS ORDERED: Polyethylene Glycol 3350 Powder 17 GM Packet PO PRN (19:08)
[2017-12-31] MEDS ORDERED: HYDROmorphone 1 MG/ML Syringe IVPUSH PRN (19:08)
[2017-12-31] MEDS ORDERED: Docusate Sodium 100 MG Cap PO PRN (19:08)
[2017-12-31] MEDS ORDERED: Temazepam 15 MG Cap PO PRN (19:14)
[2017-12-31] MEDS ORDERED: Sodium Chloride 0.65% Nasal Spray 45 ML Bottle NASBOTH PRN (19:14)
[2017-12-31] MEDS ORDERED: Nitroglycerin 0.4 MG Tab.SL SL PRN (19:14)
[2017-12-31] MEDS ORDERED: Oxymetazoline 0.05% Nasal Spray 15 ML Bottle NAS PRN (19:18)
--- NOTE | 2017-12-31 19:39 | PCM.SN ---
- Free Text/Narrative Note: Spoke to daughter Silvana she states, she and her mother are the DPOAs. She okayed for us to update any family members but only she or her mom would makes medical decisions for the patient. Asked her about d/c care plans, she states that patient still wants to go home and that they (family) have a good home support system--> and HHS. Silvana told me that they have a back up plan for him and that would be [facility] once he requires more help than what they could provide at home.
[2017-12-31] MEDS: Mupirocin Oint 22 GM Tube TOP SCH (21:30)
[2017-12-31] MEDS: Bacitracin/Neomycin/Polymyxin B Oint 15 GM Tube TOP SCH (21:31)
[2017-12-31] MEDS: Tamsulosin 0.4 MG Cap.ER PO SCH (21:31)
[2017-12-31] MEDS: metroNIDAZOLE 500 MG Tab PO SCH (21:31)
[2017-12-31] MEDS: Lidocaine 2% Jelly 5 ML Tube PO SCH (21:32)
[2017-12-31] MEDS: Sodium Chloride 0.9% 1,000 ML IV SCH (21:33)
[2018-01-01] MEDS: Levothyroxine 88 MCG Tab PO SCH (06:33)
[2018-01-01] MEDS: Lidocaine 2% Jelly 5 ML Tube PO SCH ×5 (06:33→22:18)
--- NOTE | 2018-01-01 06:48 | PCM.PN ---
- General Info Date of Service: 01/01/18 Admission Dx/Problem (Free Text): Admission Diagnosis/Problem Admission Diagnosis/Problem Falls Subjective Update: Follow Up Functional Status: Reports: Pain Controlled, Tolerating Diet, Ambulating, Urinating. Denies: New Symptoms - Review of Systems General: Reports: Weakness. Denies: Fever, Fatigue, Malaise, Chills HEENT: Reports: Sinus Congestion, Other (nose bleed) Pulmonary: Denies: Shortness of Breath Cardiovascular: Reports: No Symptoms Gastrointestinal: Denies: Abdominal Pain, Constipation, Diarrhea, Nausea, Vomiting Genitourinary: Reports: No Symptoms Musculoskeletal: Reports: No Symptoms Skin: Reports: Bruising. Denies: Cyanosis, Jaundice, Mottled, Pallor, Rash Neurological: Denies: Confusion, Pre-Existing Deficit, Difficulty Walking, Weakness Psychiatric: Denies: Depression, Anxiety, Agitation, Cravings, Hallucinations Systems Review Comment:: He did not slept well last night due to difficulty with breathing from bilateral nose bleed. His Hgb is 7.9 this am. Nurse reports he has had significant nose bleed overnight with numerous gauze soaked and wet. He has no other complaints. - Patient Data Vitals - Most Recent: Last Vital Signs Temp 37.2 C 01/01/18 04:17 Pulse 72 01/01/18 04:17 Resp 19 01/01/18 04:17 BP 123/86 01/01/18 04:17 Pulse Ox 94 L 01/01/18 04:17 Weight - Most Recent: 91.399 kg Med Orders - Current: Current Medications Hydrocodone Bitart/Acetaminophen (Cataldo 325-5 Mg) 1 tab PO Q4H PRN PRN Reason: Pain (moderate 4-6) Albuterol/Ipratropium (Duoneb 3.0-0.5 Mg/3 Ml) 3 ml NEB Q4H PRN PRN Reason: Shortness Of Breath/wheezing Amlodipine Besylate (Norvasc) 5 mg PO DAILY GANGA Bisacodyl (Dulcolax) 5 mg PO DAILY PRN PRN Reason: Constipation Docusate Sodium (Colace) 100 mg PO BID PRN PRN Reason: Constipation Galantamine Hydrobromide (Razadyne) 8 mg PO BID [facility] Last Admin: 12/31/17 21:32 Dose: 8 mg Hydromorphone HCl (Dilaudid) 0.25 mg IVPUSH Q4H PRN PRN Reason: Pain (severe 7-10) Promethazine HCl 6.25 mg/ (Sodium Chloride) 50.25 mls @ 100 mls/hr IV Q6H PRN PRN Reason: Nausea/Vomiting Sodium Chloride (Normal Saline) 1,000 mls @ 50 mls/hr IV ASDIRECTED [facility] Last Admin: 12/31/17 21:33 Dose: 50 mls/hr Isosorbide Mononitrate (Imdur) 30 mg PO DAILY [facility] Levothyroxine Sodium (Synthroid) 88 mcg PO ACBRK [facility] Last Admin: 01/01/18 06:33 Dose: 88 mcg Lidocaine HCl (Xylocaine 2% Jelly) 0 ml PO 5XDAY [facility] Last Admin: 01/01/18 06:33 Dose: 1 applic Lisinopril (Prinivil) 10 mg PO DAILY [facility] Lorazepam (Ativan) 0.25 mg IV Q6H PRN PRN Reason: Anxiety Metoprolol Succinate (Toprol Xl) 50 mg PO DAILY [facility] Metronidazole (Flagyl) 500 mg PO TID [facility] Last Admin: 12/31/17 21:31 Dose: 500 mg Multivitamins (Thera) 1 each PO DAILY [facility] Mupirocin (Bactroban Oint) 0 gm TOP BID [facility] Last Admin: 12/31/17 21:30 Dose: 1 applic Naproxen (Naprosyn) 375 mg PO Q12HR [facility] Neomycin/Polymyxin/Bacitracin (Neosporin Oint) 0 gm TOP TID [facility] Last Admin: 12/31/17 21:31 Dose: Not Given Nitroglycerin (Nitrostat) 0.4 mg SL ASDIRECTED PRN PRN Reason: Chest Pain Ondansetron HCl (Zofran) 4 mg IV Q6H PRN PRN Reason: Nausea/Vomiting Oxymetazoline HCl (Afrin Original 0.05% Nasal [place]) 15 ml TRUDY Q12HR PRN PRN Reason: Congestion Polyethylene Glycol (Miralax) 17 gm PO DAILY PRN PRN Reason: Constipation Senna/Docusate Sodium (Senna Plus) 1 tab PO BID PRN PRN Reason: Constipation Sodium Chloride ([place] Nasal [place]) 0 ml NASBOTH BID PRN PRN Reason: Dryness Tamsulosin HCl (Flomax) 0.4 mg PO BID [facility] Last Admin: 12/31/17 21:31 Dose: 0.4 mg Temazepam (Restoril) 15 mg PO BEDTIME PRN PRN Reason: Sleep Timolol Maleate (Timoptic 0.5% Ophth Soln) 0 ml EYELF DAILY [facility] Discontinued Medications Acetaminophen (Tylenol) 650 mg PO NOW ONE Stop: 12/31/17 15:21 Last Admin: 12/31/17 15:30 Dose: 650 mg - Exam Quality Assessment: No: Supplemental Oxygen General: Alert, Oriented, Cooperative, No Acute Distress HEENT: Pupils Equal, Pupils Reactive, EOMI, Mucous Membr. Moist/[place], Other ( plugged bilateral nares; facial erythema) Neck: Supple, Trachea Midline, No JVD, No Thyromegaly, Lymphadenopathy, Other ( mass on left neck near jaw line) Lungs: Normal Respiratory Effort, Decreased Breath Sounds Cardiovascular: Regular Rate, Regular Rhythm GI/Abdominal Exam: Normal Bowel Sounds, Soft, Non-Tender, No Organomegaly, No Distention, No Abnormal Bruit, No Mass (Male) Exam: Deferred Back Exam: Normal Inspection, Decreased Range of Motion Extremities: Normal Inspection, Normal Range of Motion, Non-Tender, No Pedal Edema, Normal Capillary Refill Peripheral Pulses: 2+: Dorsalis Pedis (L), Dorsalis Pedis (R) Skin: Warm, Dry, Intact Neurological: No New Focal Deficit Psy/Mental Status: Alert, Normal Affect, Normal Mood - Problem List Review Problem List Initiated/Reviewed/Updated: Yes - My Orders Last 24 Hours: My Active Orders 12/31/17 17:55 Resuscitation Status Routine 12/31/17 19:08 Height and Weight [RC] 0400 Intake and Output [RC] 04,16 Oxygen Therapy [RC] PRN Up With Assistance [RC] ASDIRECTED Up ad Norma [RC] ASDIRECTED VTE/DVT Education [RC] PER UNIT ROUTINE Vital Signs [RC] Q4HR Acetaminophen/HYDROcodone [Cataldo 325-5 MG] 1 tab PO Q4H PRN Albuterol/Ipratropium [DuoNeb 3.0-0.5 MG/3 ML] 3 ml NEB Q4H PRN Bisacodyl [Dulcolax] 5 mg PO DAILY PRN Docusate Sodium [Colace] 100 mg PO BID PRN Docusate Sodium/Sennosides [Senna Plus] 1 tab PO BID PRN HYDROmorphone [Dilaudid] 0.25 mg IVPUSH Q4H PRN LORazepam [Ativan] 0.25 mg IV Q6H PRN Ondansetron [Zofran] 4 mg IV Q6H PRN Polyethylene Glycol 3350 [MiraLAX] 17 gm PO DAILY PRN Promethazine [Phenergan] 6.25 mg Sodium Chloride 0.9% [Normal Saline] 50 ml IV Q6H 12/31/17 19:09 Antiembolic Devices [RC] QSHIFT Sequential Compression Device [OM.PC] Per Unit Routine 12/31/17 19:10 RT Aerosol Therapy [RC] ASDIRECTED 12/31/17 19:11 Consult to Case Management [CONS] Routine 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 Helper [CONS] Routine Consult to Spiritual Care [CONS] Routine OT Evaluation and Treatment [CONS] Routine PT Evaluation and Treatment [CONS] Routine 12/31/17 19:14 Nitroglycerin [Nitrostat] 0.4 mg SL ASDIRECTED PRN Sodium Chloride 0.65% [[place] Nasal [place]] 0 ml NASBOTH BID PRN Temazepam [Restoril] 15 mg PO BEDTIME PRN 12/31/17 19:15 Sodium Chloride 0.9% [Normal Saline] 1,000 ml IV ASDIRECTED 12/31/17 19:18 Oxymetazoline [Afrin Original 0.05% Nasal [place]] 15 ml TRUDY Q12HR PRN 12/31/17 21:00 Bacitracin/Neomycin/Polymyxin [Neosporin Oint] 0 gm TOP TID Galantamine [Razadyne] 8 mg PO BID Mupirocin Oint [Bactroban Oint] 0 gm TOP BID Tamsulosin [Flomax] 0.4 mg PO BID metroNIDAZOLE [Flagyl] 500 mg PO TID 12/31/17 22:00 Lidocaine 2% [Xylocaine 2% Jelly] 0 ml PO 5XDAY 01/01/18 05:40 BASIC METABOLIC PANEL,BMP [CHEM] AM C-REACTIVE PROTEIN [CHEM] AM CBC WITH AUTO DIFF [HEME] AM FOLIC ACID [CHEM] AM MAGNESIUM [CHEM] AM METHYLMALONIC ACID [REF] Routine T4 FREE [CHEM] AM TSH [CHEM] AM VITAMIN B12 [CHEM] AM VITAMIN D 25-HYROXY (D2, D3) [REF] Routine 01/01/18 06:00 Levothyroxine [Synthroid] 88 mcg PO ACBRK 01/01/18 09:00 Isosorbide Mononitrate [Imdur] 30 mg PO DAILY Lisinopril [Prinivil] 10 mg PO DAILY Metoprolol Succinate [Toprol XL] 50 mg PO DAILY Multivitamins,Therapeutic [Thera] 1 each PO DAILY Naproxen [Naprosyn] 375 mg PO Q12HR Timolol Maleate [Timoptic 0.5% Ophth Soln] 0 ml EYELF DAILY amLODIPine [Norvasc] 5 mg PO DAILY 01/01/18 Dinner Regular Diet [DIET] 01/02/18 05:11 BASIC METABOLIC PANEL,BMP [CHEM] AM C-REACTIVE PROTEIN [CHEM] AM CBC WITH AUTO DIFF [HEME] AM MAGNESIUM [CHEM] AM 01/03/18 05:11 BASIC METABOLIC PANEL,BMP [CHEM] AM C-REACTIVE PROTEIN [CHEM] AM CBC WITH AUTO DIFF [HEME] AM MAGNESIUM [CHEM] AM 01/04/18 05:11 BASIC METABOLIC PANEL,BMP [CHEM] AM C-REACTIVE PROTEIN [CHEM] AM CBC WITH AUTO DIFF [HEME] AM MAGNESIUM [CHEM] AM 01/05/18 05:11 BASIC METABOLIC PANEL,BMP [CHEM] AM CBC WITH AUTO DIFF [HEME] AM MAGNESIUM [CHEM] AM - Plan Plan:: Assessment/Plan: Acute: Pancytopenia, Worse - Acute vs Chronic - Low: WBC, RBC, Hgb, Hct, Platelet, other bone marrow cell lines - Folic Acid, Vit B 12 and MMA level - Monitor Hgb--> 7.9: He meets criteria for transfusion: CA patient with ongoing significant nose bleeds, CAD S/p CABG, Pos rectal bleed - Hemoccult pos - Recent transfusion was back in October according to daughter - Dr. Douglass consulted for further evaluation; will see him tomorrow Maxillary Sinusitis, Unchanged - S/p Radiation - Supportive Care and Nasal Decongestant - Anti-inflammatory agent - Hold off antibiotic for now Epistaxis on Bilateral Nare - S/p radiation therapy - Platelet is 38K - Has had significant bleed overnight - Consider platelet transfusion to slow down bleed Generalized Weakness/Tiredness - Risk factor: Advanced Age and Dementia - Likely 2/2 Pancytopenia from Malignancy - Hgb is 8-he states he is right about in this range but daughter disagrees - Hgb by history is bet 8-9 - In oral intake is good according to him - Vit D level-pending - Thyroid Panel-normal - Continue PT/OT consult S/p Fall - Has had 2-3 unwitnessed fall in the past several days - Risk factors: OA/DJD, Dementia, Insomnia, Impaired Vision and Urinary Incontinence - Was told family is able to take care of him with and [facility] as care givers Squamous Skin Cancer In the [facility] - S/p Radiation Therapy Chronic: Impaired Vision CAD s/p CABG HF with Unknown EF HTN HLD COPD Sleep Apnea Hx/o GI Bleed BPH CKD Urinary Incontinence Back pain OA/DJD Seizure Disorder Hypothyroidism Insomnia Alzheimer's Dementia Skin Cancer S/p Radiation Plan: He is otherwise clinically stable He needs at least 2 units of PRBCs and 1 unit of Platelet Resume all home meds Routine AM Labs Fall Precautions Continue PT/OT Awaiting Dr. Douglass's input SW/CM for d/c planning Additional orders as above Code status: DNR/DNI
[2018-01-01] MEDS: Lisinopril 10 MG Tab PO SCH (08:08)
[2018-01-01] MEDS: amLODIPine 5 MG Tab PO SCH (08:10)
[2018-01-01] MEDS: Tamsulosin 0.4 MG Cap.ER PO SCH ×2 (08:10→22:17)
[2018-01-01] MEDS: Timolol Maleate 0.5% Ophth Soln 5 ML Bottle EYELF SCH (08:11)
[2018-01-01] MEDS: Multivitamins,Therapeutic Tab PO SCH (08:11)
[2018-01-01] MEDS: metroNIDAZOLE 500 MG Tab PO SCH ×3 (08:12→22:17)
[2018-01-01] MEDS: Mupirocin Oint 22 GM Tube TOP SCH ×2 (08:12→22:16)
[2018-01-01] MEDS: Isosorbide Mononitrate 30 MG Tab.ER PO SCH (08:12)
[2018-01-01] MEDS: Bacitracin/Neomycin/Polymyxin B Oint 15 GM Tube TOP SCH ×3 (08:18→22:18)
[2018-01-01] MEDS: Metoprolol Succinate 50 MG Tab.ER PO SCH (09:03)
--- NOTE | 2018-01-01 12:38 | PCM.CONSN ---
- General Info Date of Service: 01/01/18 - Patient Data Vitals - Most Recent: Last Vital Signs Temp 99.3 F 01/01/18 11:42 Pulse 52 L 01/01/18 11:42 Resp 20 01/01/18 11:42 BP 111/51 L 01/01/18 11:42 Pulse Ox 91 L 01/01/18 11:42 Weight - Most Recent: 68.039 kg I&O - Last 24 Hours: Intake & Output 12/31/17 01/01/18 01/01/18 23:59 07:59 15:59 Intake Total 696 928 1567 Output Total 2450 Balance 180 466 -730 Lab Results Last 24 Hours: Laboratory Results - last 24 hr 01/01/18 01/01/18 01/01/18 Range/Units 05:40 05:40 05:40 WBC 3.41 L (4.23-9.07) K/mm3 RBC 2.42 L (4.63-6.08) M/mm3 Hgb 7.9 L (13.7-17.5) gm/L Hct 25.7 L (40.1-51.0) % MCV 106.2 H (79.0-92.2) fl MCH 32.6 H (25.7-32.2) pg MCHC 30.7 L (32.2-35.5) g/dl RDW Std Deviation 77.6 H (35.1-43.9) fL Plt Count 38 L (163-337) K/mm3 Neut % (Auto) 1.8 L (34.0-67.9) % Lymph % (Auto) 64.8 H (21.8-53.1) % [place] % (Auto) 32.8 H (5.3-12.2) % Eos % (Auto) 0.3 L (0.8-7.0) Baso % (Auto) 0.0 L (0.1-1.2) % Neut # (Auto) 0.06 L (1.78-5.38) K/mm3 Lymph # (Auto) 2.21 (1.32-3.57) K/mm3 [place] # (Auto) 1.12 H (0.30-0.82) K/mm3 Eos # (Auto) 0.01 L (0.04-0.54) K/mm3 Baso # (Auto) 0.00 L (0.01-0.08) K/mm3 Manual Slide Review Abnormal smear Sodium 142 (136-145) mEq/L Potassium 4.1 (3.5-5.1) mEq/L Chloride 107 (98-107) mEq/L Carbon Dioxide 27 (21-32) mEq/L Anion Gap 12.1 (5-15) BUN 19 H (7-18) mg/dL Creatinine 1.1 (0.7-1.3) mg/dL Est Cr Clr Drug Dosing 41.08 mL/min Estimated GFR (MDRD) > 60 (>60) mL/min BUN/Creatinine Ratio 17.3 (14-18) Glucose 106 (83-115) mg/dL Calcium 9.0 (8.5-10.1) mg/dL Magnesium 2.1 (1.8-2.4) mg/dl C-Reactive Protein 1.8 H* (<1.0) mg/dL Vitamin B12 941 (193-986) pg/ml Folate 17.8 (8.6-58.9) ng/mL Free T4 1.28 (0.76-1.46) ng/dL TSH 3rd Generation 0.408 (0.358-3.74) uIU/mL Med Orders - Current: Current Medications Hydrocodone Bitart/Acetaminophen ([place] 325-5 Mg) 1 tab PO Q4H PRN PRN Reason: Pain (moderate 4-6) Albuterol/Ipratropium (Duoneb 3.0-0.5 Mg/3 Ml) 3 ml NEB Q4H PRN PRN Reason: Shortness Of Breath/wheezing Amlodipine Besylate (Norvasc) 5 mg PO DAILY [facility] Last Admin: 01/01/18 08:10 Dose: 5 mg Bisacodyl (Dulcolax) 5 mg PO DAILY PRN PRN Reason: Constipation Docusate Sodium (Colace) 100 mg PO BID PRN PRN Reason: Constipation Galantamine Hydrobromide (Razadyne) 8 mg PO BID [facility] Last Admin: 01/01/18 08:11 Dose: 8 mg Hydromorphone HCl (Dilaudid) 0.25 mg IVPUSH Q4H PRN PRN Reason: Pain (severe 7-10) Promethazine HCl 6.25 mg/ (Sodium Chloride) 50.25 mls @ 100 mls/hr IV Q6H PRN PRN Reason: Nausea/Vomiting Sodium Chloride (Normal Saline) 1,000 mls @ 50 mls/hr IV ASDIRECTED [facility] Last Admin: 12/31/17 21:33 Dose: 50 mls/hr Isosorbide Mononitrate (Imdur) 30 mg PO DAILY [facility] Last Admin: 01/01/18 08:12 Dose: 30 mg Levothyroxine Sodium (Synthroid) 88 mcg PO ACBRK [facility] Last Admin: 01/01/18 06:33 Dose: 88 mcg Lidocaine HCl (Xylocaine 2% Jelly) 0 ml PO 5XDAY [facility] Last Admin: 01/01/18 09:44 Dose: 1 applic Lisinopril (Prinivil) 10 mg PO DAILY [facility] Last Admin: 01/01/18 08:08 Dose: 10 mg Lorazepam (Ativan) 0.25 mg IV Q6H PRN PRN Reason: Anxiety Metoprolol Succinate (Toprol Xl) 50 mg PO DAILY [facility] Last Admin: 01/01/18 09:03 Dose: Not Given Metronidazole (Flagyl) 500 mg PO TID [facility] Last Admin: 01/01/18 08:12 Dose: 500 mg Multivitamins (Thera) 1 each PO DAILY [facility] Last Admin: 01/01/18 08:11 Dose: 1 each Mupirocin (Bactroban Oint) 0 gm TOP BID [facility] Last Admin: 01/01/18 08:12 Dose: 1 applic Naproxen (Naprosyn) 375 mg PO Q12HR [facility] Last Admin: 01/01/18 08:11 Dose: 375 mg Neomycin/Polymyxin/Bacitracin (Neosporin Oint) 0 gm TOP TID [facility] Last Admin: 01/01/18 08:18 Dose: Not Given Nitroglycerin (Nitrostat) 0.4 mg SL ASDIRECTED PRN PRN Reason: Chest Pain Ondansetron HCl (Zofran) 4 mg IV Q6H PRN PRN Reason: Nausea/Vomiting Oxymetazoline HCl (Afrin Original 0.05% Nasal [place]) 0 ml TRUDY Q12HR PRN PRN Reason: Congestion Polyethylene Glycol (Miralax) 17 gm PO DAILY PRN PRN Reason: Constipation Senna/Docusate Sodium (Senna Plus) 1 tab PO BID PRN PRN Reason: Constipation Sodium Chloride ([place] Nasal [place]) 0 ml NASBOTH BID PRN PRN Reason: Dryness Tamsulosin HCl (Flomax) 0.4 mg PO BID [facility] Last Admin: 01/01/18 08:10 Dose: 0.4 mg Temazepam (Restoril) 15 mg PO BEDTIME PRN PRN Reason: Sleep Timolol Maleate (Timoptic 0.5% Ophth Soln) 0 ml EYELF DAILY [facility] Last Admin: 01/01/18 08:11 Dose: 1 drop Discontinued Medications Acetaminophen (Tylenol) 650 mg PO NOW ONE Stop: 12/31/17 15:21 Last Admin: 12/31/17 15:30 Dose: 650 mg Consult PN Assessment/Plan Procedures: Procedures ASSAY OF MAGNESIUM (10/14/17) ASSAY OF NATRIURETIC PEPTIDE (05/10/17) ASSAY OF TROPONIN QUANT (05/10/17) ASSAY THYROID STIM HORMONE (11/02/16) AUTOMATED RETICULOCYTE COUNT (08/16/17) BL SMEAR W/DIFF WBC COUNT (08/16/17) BLOOD TRANSFUSION SERVICE (10/26/17) BLOOD TYPING SEROLOGIC ABO (10/26/17) BLOOD TYPING SEROLOGIC RH(D) (10/26/17) C-REACTIVE PROTEIN (10/14/17) CHEST X-RAY 1 VIEW FRONTAL (05/10/17) CHEST X-RAY 2VW FRONTAL&LATL (04/12/15) CHROMOSOME ANALYSIS 20-25 (08/16/17) CHROMOSOME COUNT ADDITIONAL (08/16/17) COMPATIBILITY TEST ANTIGLOB (10/26/17) COMPLETE CBC AUTOMATED (08/16/17) COMPLETE CBC W/AUTO DIFF WBC (12/03/17) COMPREHEN METABOLIC PANEL (12/03/17) CREATINE MB FRACTION (11/02/16) CT ABD & PELV W/CONTRAST (10/26/17) CT HEAD/BRAIN W/O DYE (12/03/17) CT MAXILLOFACIAL W/O DYE (10/14/17) CT SOFT TISSUE NECK W/DYE (10/26/17) CT THORAX W/DYE (10/26/17) CULTURE OTHR SPECIMN AEROBIC (10/14/17) DECALCIFY TISSUE (08/16/17) DX BONE MARROW BIOPSIES (08/16/17) ELECTROCARDIOGRAM TRACING (12/03/17) EMERGENCY DEPT VISIT (12/03/17) EMERGENCY DEPT VISIT (04/12/15) FLOWCYTOMETRY/ TC 1 MARKER (08/16/17) FLOWCYTOMETRY/TC ADD-ON (08/16/17) HEMATOCRIT (10/14/17) HEMOGLOBIN (10/14/17) HYDRATE IV INFUSION ADD-ON (12/03/17) HYDRATION IV INFUSION INIT (12/03/17) IMMUNOHISTO ANTB 1ST STAIN (08/16/17) METABOLIC PANEL TOTAL CA (10/14/17) PROTHROMBIN TIME (11/14/16) RBC ANTIBODY SCREEN (10/26/17) ROUTINE VENIPUNCTURE (12/03/17) SPECIAL STAINS GROUP 2 (08/16/17) THER/PROPH/DIAG INJ IV PUSH (11/14/16) THER/PROPH/DIAG IV INF ADDON (11/02/16) THER/PROPH/DIAG IV INF INIT (10/20/17) TISSUE CULTURE BONE MARROW (08/16/17) TISSUE EXAM BY PATHOLOGIST (08/16/17) URINALYSIS AUTO W/SCOPE (04/12/15) Problem List Initiated/Reviewed/Updated: Yes Plan: surgical consult completed JONATHAN
[2018-01-01] MEDS ORDERED: Dexamethasone 4 MG/ML SDV IVPUSH ONE (12:52)
[2018-01-01] MEDS ORDERED: diphenhydrAMINE 50 MG/ML SDV IV ONE (12:52)
[2018-01-01] MEDS ORDERED: Sodium Chloride 0.9% 250 ML IV SCH (14:30)
[2018-01-02] MEDS: Sodium Chloride 0.9% 1,000 ML IV SCH (00:11)
[2018-01-02] MEDS: Levothyroxine 88 MCG Tab PO SCH (06:32)
[2018-01-02] MEDS: Lidocaine 2% Jelly 5 ML Tube PO SCH ×5 (06:33→21:53)
--- NOTE | 2018-01-02 06:52 | PCM.PN ---
- General Info Date of Service: 01/02/18 Admission Dx/Problem (Free Text): Admission Diagnosis/Problem Admission Diagnosis/Problem Falls Subjective Update: Follow Up Functional Status: Reports: Pain Controlled, Tolerating Diet, Ambulating, Urinating. Denies: New Symptoms - Review of Systems General: Denies: Fever, Weakness, Fatigue, Malaise, Chills HEENT: Reports: No Symptoms Pulmonary: Denies: Shortness of Breath Cardiovascular: Denies: Chest Pain Gastrointestinal: Denies: Abdominal Pain, Nausea, Vomiting Genitourinary: Reports: No Symptoms Musculoskeletal: Reports: No Symptoms Skin: Denies: Cyanosis, Jaundice, Mottled, Pallor, Diaphoresis Neurological: Denies: Difficulty Walking, Weakness, Gait Disturbance Psychiatric: Denies: Confusion (baseline), Depression, Anxiety, Hallucinations, Homicidal Ideation Systems Review Comment:: No significant overnight or acute issues. He did not sleep at all last night. His nose bleeds have stopped. He no longer have nose plugs. He feels much better too this morning. He has no other complaints. His Hgb is now at 10 and Platelet is at 52K. - Patient Data Vitals - Most Recent: Last Vital Signs Temp 36.9 C 01/02/18 03:30 Pulse 74 01/02/18 03:30 Resp 14 01/02/18 03:30 BP 138/78 01/02/18 03:30 Pulse Ox 96 01/02/18 03:30 Weight - Most Recent: 91.399 kg I&O - Last 24 Hours: Intake & Output 01/01/18 01/01/18 01/02/18 14:59 22:59 06:59 Intake Total 1720 1563 0 Output Total 2450 800 Balance -730 763 0 Lab Results Last 24 Hours: Laboratory Results - last 24 hr 01/01/18 01/01/18 01/01/18 Range/Units 05:40 05:40 05:40 WBC 3.41 L (4.23-9.07) K/mm3 RBC 2.42 L (4.63-6.08) M/mm3 Hgb 7.9 L (13.7-17.5) gm/L Hct 25.7 L (40.1-51.0) % MCV 106.2 H (79.0-92.2) fl MCH 32.6 H (25.7-32.2) pg MCHC 30.7 L (32.2-35.5) g/dl RDW Std Deviation 77.6 H (35.1-43.9) fL Plt Count 38 L (163-337) K/mm3 MPV (9.4-12.3) fl Neut % (Auto) 1.8 L (34.0-67.9) % Lymph % (Auto) 64.8 H (21.8-53.1) % [place] % (Auto) 32.8 H (5.3-12.2) % Eos % (Auto) 0.3 L (0.8-7.0) Baso % (Auto) 0.0 L (0.1-1.2) % Neut # (Auto) 0.06 L (1.78-5.38) K/mm3 Lymph # (Auto) 2.21 (1.32-3.57) K/mm3 [place] # (Auto) 1.12 H (0.30-0.82) K/mm3 Eos # (Auto) 0.01 L (0.04-0.54) K/mm3 Baso # (Auto) 0.00 L (0.01-0.08) K/mm3 Manual Slide Review Abnormal smear Sodium 142 (136-145) mEq/L Potassium 4.1 (3.5-5.1) mEq/L Chloride 107 (98-107) mEq/L Carbon Dioxide 27 (21-32) mEq/L Anion Gap 12.1 (5-15) BUN 19 H (7-18) mg/dL Creatinine 1.1 (0.7-1.3) mg/dL Est Cr Clr Drug Dosing 41.08 mL/min Estimated GFR (MDRD) > 60 (>60) mL/min BUN/Creatinine Ratio 17.3 (14-18) Glucose 106 (83-115) mg/dL Calcium 9.0 (8.5-10.1) mg/dL Magnesium 2.1 (1.8-2.4) mg/dl C-Reactive Protein 1.8 H* (<1.0) mg/dL Vitamin B12 941 (193-986) pg/ml Folate 17.8 (8.6-58.9) ng/mL Free T4 1.28 (0.76-1.46) ng/dL TSH 3rd Generation 0.408 (0.358-3.74) uIU/mL Blood Type Gel Antibody Screen Crossmatch 01/01/18 01/02/18 Range/Units 05:40 05:50 WBC 4.19 L (4.23-9.07) K/mm3 RBC 3.18 L (4.63-6.08) M/mm3 Hgb 10.0 L (13.7-17.5) gm/L Hct 31.2 L (40.1-51.0) % MCV 98.1 H (79.0-92.2) fl MCH 31.4 (25.7-32.2) pg MCHC 32.1 L (32.2-35.5) g/dl RDW Std Deviation 72.0 H (35.1-43.9) fL Plt Count 52 L (163-337) K/mm3 MPV 11.0 (9.4-12.3) fl Neut % (Auto) 5.3 L (34.0-67.9) % Lymph % (Auto) 62.5 H (21.8-53.1) % [place] % (Auto) 32.2 H (5.3-12.2) % Eos % (Auto) 0 L (0.8-7.0) Baso % (Auto) 0.0 L (0.1-1.2) % Neut # (Auto) 0.22 L (1.78-5.38) K/mm3 Lymph # (Auto) 2.62 (1.32-3.57) K/mm3 [place] # (Auto) 1.35 H (0.30-0.82) K/mm3 Eos # (Auto) 0.00 L (0.04-0.54) K/mm3 Baso # (Auto) 0.00 L (0.01-0.08) K/mm3 Manual Slide Review Sodium (136-145) mEq/L Potassium (3.5-5.1) mEq/L Chloride (98-107) mEq/L Carbon Dioxide (21-32) mEq/L Anion Gap (5-15) BUN (7-18) mg/dL Creatinine (0.7-1.3) mg/dL Est Cr Clr Drug Dosing mL/min Estimated GFR (MDRD) (>60) mL/min BUN/Creatinine Ratio (14-18) Glucose (83-115) mg/dL Calcium (8.5-10.1) mg/dL Magnesium (1.8-2.4) mg/dl C-Reactive Protein (<1.0) mg/dL Vitamin B12 (193-986) pg/ml Folate (8.6-58.9) ng/mL Free T4 (0.76-1.46) ng/dL TSH 3rd Generation (0.358-3.74) uIU/mL Blood Type B POSITIVE Gel Antibody Screen Negative Crossmatch See Detail Med Orders - Current: Current Medications Hydrocodone Bitart/Acetaminophen ([place] 325-5 Mg) 1 tab PO Q4H PRN PRN Reason: Pain (moderate 4-6) Albuterol/Ipratropium (Duoneb 3.0-0.5 Mg/3 Ml) 3 ml NEB Q4H PRN PRN Reason: Shortness Of Breath/wheezing Amlodipine Besylate (Norvasc) 5 mg PO DAILY [facility] Last Admin: 01/01/18 08:10 Dose: 5 mg Bisacodyl (Dulcolax) 5 mg PO DAILY PRN PRN Reason: Constipation Docusate Sodium (Colace) 100 mg PO BID PRN PRN Reason: Constipation Galantamine Hydrobromide (Razadyne) 8 mg PO BID [facility] Last Admin: 01/01/18 22:18 Dose: Not Given Hydromorphone HCl (Dilaudid) 0.25 mg IVPUSH Q4H PRN PRN Reason: Pain (severe 7-10) Promethazine HCl 6.25 mg/ (Sodium Chloride) 50.25 mls @ 100 mls/hr IV Q6H PRN PRN Reason: Nausea/Vomiting Sodium Chloride (Normal Saline) 1,000 mls @ 50 mls/hr IV ASDIRECTED [facility] Last Admin: 01/02/18 00:11 Dose: 50 mls/hr Sodium Chloride (Normal Saline) 250 mls @ 100 mls/hr IV ASDIRECTED [facility] Isosorbide Mononitrate (Imdur) 30 mg PO DAILY [facility] Last Admin: 01/01/18 08:12 Dose: 30 mg Levothyroxine Sodium (Synthroid) 88 mcg PO ACBRK [facility] Last Admin: 01/02/18 06:32 Dose: 88 mcg Lidocaine HCl (Xylocaine 2% Jelly) 0 ml PO 5XDAY [facility] Last Admin: 01/02/18 06:33 Dose: 1 applic Lisinopril (Prinivil) 10 mg PO DAILY [facility] Last Admin: 01/01/18 08:08 Dose: 10 mg Lorazepam (Ativan) 0.25 mg IV Q6H PRN PRN Reason: Anxiety Metoprolol Succinate (Toprol Xl) 50 mg PO DAILY [facility] Last Admin: 01/01/18 09:03 Dose: Not Given Metronidazole (Flagyl) 500 mg PO TID [facility] Last Admin: 01/01/18 22:17 Dose: 500 mg Multivitamins (Thera) 1 each PO DAILY [facility] Last Admin: 01/01/18 08:11 Dose: 1 each Mupirocin (Bactroban Oint) 0 gm TOP BID [facility] Last Admin: 01/01/18 22:16 Dose: 1 applic Naproxen (Naprosyn) 375 mg PO Q12HR [facility] Last Admin: 01/01/18 22:17 Dose: 375 mg Neomycin/Polymyxin/Bacitracin (Neosporin Oint) 0 gm TOP TID [facility] Last Admin: 01/01/18 22:18 Dose: Not Given Nitroglycerin (Nitrostat) 0.4 mg SL ASDIRECTED PRN PRN Reason: Chest Pain Ondansetron HCl (Zofran) 4 mg IV Q6H PRN PRN Reason: Nausea/Vomiting Oxymetazoline HCl (Afrin Original 0.05% Nasal [place]) 0 ml TRUDY Q12HR PRN PRN Reason: Congestion Polyethylene Glycol (Miralax) 17 gm PO DAILY PRN PRN Reason: Constipation Senna/Docusate Sodium (Senna Plus) 1 tab PO BID PRN PRN Reason: Constipation Sodium Chloride ([place] Nasal [place]) 0 ml NASBOTH BID PRN PRN Reason: Dryness Tamsulosin HCl (Flomax) 0.4 mg PO BID [facility] Last Admin: 01/01/18 22:17 Dose: 0.4 mg Temazepam (Restoril) 15 mg PO BEDTIME PRN PRN Reason: Sleep Timolol Maleate (Timoptic 0.5% Ophth Soln) 0 ml EYELF DAILY [facility] Last Admin: 01/01/18 08:11 Dose: 1 drop Discontinued Medications Acetaminophen (Tylenol) 650 mg PO NOW ONE Stop: 12/31/17 15:21 Last Admin: 12/31/17 15:30 Dose: 650 mg Dexamethasone (Dexamethasone) 4 mg IVPUSH ONETIME ONE Stop: 01/01/18 12:53 Last Admin: 01/01/18 14:25 Dose: 4 mg Diphenhydramine HCl (Benadryl) 25 mg IV ONETIME ONE Stop: 01/01/18 12:53 Last Admin: 01/01/18 14:24 Dose: 25 mg - Exam General: Alert, Cooperative, No Acute Distress HEENT: Pupils Equal, Pupils Reactive, EOMI, Mucous Membr. Moist/[place], Other ( facial erythema; no active bleeding on nares) Neck: Supple, Trachea Midline, No JVD, No Thyromegaly Lungs: Clear to Auscultation, Normal Respiratory Effort, Decreased Breath Sounds Cardiovascular: Regular Rate, Regular Rhythm GI/Abdominal Exam: Normal Bowel Sounds, Soft, Non-Tender, No Organomegaly, No Distention, No Abnormal Bruit, No Mass, Pelvis Stable (Male) Exam: Deferred Back Exam: Normal Inspection, Decreased Range of Motion Extremities: Normal Inspection, Normal Range of Motion, Non-Tender, No Pedal Edema, Normal Capillary Refill Peripheral Pulses: 2+: Posterior Tibial (L), Posterior Tibial (R), Dorsalis Pedis (L), Dorsalis Pedis (R) Skin: Warm, Dry, Intact Wound/Incisions: Healing Well, No Drainage, Erythema Improving Neurological: No New Focal Deficit Psy/Mental Status: Alert, Normal Affect, Normal Mood - Problem List Review Problem List Initiated/Reviewed/Updated: Yes - My Orders Last 24 Hours: My Active Orders 01/01/18 06:00 Levothyroxine [Synthroid] 88 mcg PO ACBRK 01/01/18 09:00 Isosorbide Mononitrate [Imdur] 30 mg PO DAILY Lisinopril [Prinivil] 10 mg PO DAILY Metoprolol Succinate [Toprol XL] 50 mg PO DAILY Multivitamins,Therapeutic [Thera] 1 each PO DAILY Naproxen [Naprosyn] 375 mg PO Q12HR Timolol Maleate [Timoptic 0.5% Ophth Soln] 0 ml EYELF DAILY amLODIPine [Norvasc] 5 mg PO DAILY 01/01/18 12:52 Blood Transfusion Reflex Orders [OM.PC] Routine Transfuse Platelets [COMM] Urgent Transfuse Red Blood Cells [COMM] Urgent 01/01/18 13:05 Transfuse Platelets [COMM] Routine 01/01/18 13:06 Transfuse Red Blood Cells [COMM] Routine 01/01/18 14:00 Antiembolic Hose [OM.PC] Routine 01/01/18 14:30 Sodium Chloride 0.9% [Normal Saline] 250 ml IV ASDIRECTED 01/01/18 Dinner Regular Diet [DIET] 01/02/18 05:50 BASIC METABOLIC PANEL,BMP [CHEM] AM C-REACTIVE PROTEIN [CHEM] AM CBC WITH AUTO DIFF [HEME] AM MAGNESIUM [CHEM] AM 01/03/18 05:11 BASIC METABOLIC PANEL,BMP [CHEM] AM C-REACTIVE PROTEIN [CHEM] AM CBC WITH AUTO DIFF [HEME] AM MAGNESIUM [CHEM] AM 01/04/18 05:11 BASIC METABOLIC PANEL,BMP [CHEM] AM C-REACTIVE PROTEIN [CHEM] AM CBC WITH AUTO DIFF [HEME] AM MAGNESIUM [CHEM] AM 01/05/18 05:11 BASIC METABOLIC PANEL,BMP [CHEM] AM CBC WITH AUTO DIFF [HEME] AM MAGNESIUM [CHEM] AM - Plan Plan:: Assessment/Plan: Acute: Pancytopenia, Improved - Acute vs Chronic - Low: WBC, RBC, Hgb, Hct, Platelet, other bone marrow cell lines - Folic Acid, Vit B 12 and MMA level - Monitor Hgb--> 7.9: He meets criteria for transfusion: CA patient with ongoing significant nose bleeds, CAD S/p CABG, Pos rectal bleed - Hemoccult pos; Hgb is now at 10 S/p 2 units of PRBC transfusion - Recent transfusion was back in October according to daughter - Dr. 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 Asymptomatic Bradycardia - Cut down Toprol XL to 25 mg po daily HTN - Not controlled - He is CCB, ACEI, Imdur and BB - Added low dose HCTZ 12.5 mg po BID and PRN Hydralazine Resolved: S/p Fall - Has had 2-3 unwitnessed fall in the past several days - Risk factors: OA/DJD, Dementia, Insomnia, Impaired Vision and Urinary Incontinence - Was told family is able to take care of him with and [facility] as care givers S/p Epistaxis on Bilateral Nare - S/p radiation therapy - Platelet is 38K - Has had significant bleed overnight - Consider platelet transfusion to slow down bleed Chronic: Impaired Vision CAD s/p CABG HF with Unknown EF HTN HLD COPD Sleep Apnea Hx/o GI Bleed BPH CKD Urinary Incontinence Back pain OA/DJD Seizure Disorder Hypothyroidism Insomnia Alzheimer's Dementia Skin Cancer S/p Radiation Plan: He remains clinically stable. He breaths better through his nose Continue current treatment Routine AM Labs Fall Precautions Continue PT/OT SW/CM for d/c planning Additional orders as above Code status: DNR/DNI Possible d/c in 1-2 days
[2018-01-02] MEDS: Timolol Maleate 0.5% Ophth Soln 5 ML Bottle EYELF SCH (09:49)
[2018-01-02] MEDS: Mupirocin Oint 22 GM Tube TOP SCH ×2 (09:49→21:53)
[2018-01-02] MEDS: Multivitamins,Therapeutic Tab PO SCH (09:50)
[2018-01-02] MEDS: Tamsulosin 0.4 MG Cap.ER PO SCH ×2 (09:50→21:48)
[2018-01-02] MEDS: metroNIDAZOLE 500 MG Tab PO SCH ×3 (09:50→21:50)
[2018-01-02] MEDS: Isosorbide Mononitrate 30 MG Tab.ER PO SCH (09:51)
[2018-01-02] MEDS: amLODIPine 5 MG Tab PO SCH (09:52)
[2018-01-02] MEDS: Bacitracin/Neomycin/Polymyxin B Oint 15 GM Tube TOP SCH ×3 (09:52→21:54)
[2018-01-02] MEDS: Lisinopril 10 MG Tab PO SCH (09:52)
[2018-01-02] MEDS: Metoprolol Succinate 50 MG Tab.ER PO SCH (10:01)
--- NOTE | 2018-01-02 16:54 | CR ---
Chest: Frontal view of the chest was obtained. Comparison: Prior chest x-ray of 05/10/17. Heart size at the upper limits of normal. Tortuous thoracic aorta is seen. Sternotomy wires are present. Minimal scarring within the left base. Lungs show no acute parenchymal change. Bony structures are grossly intact. Impression: 1. Incidental findings. Nothing acute is appreciated. Diagnostic code #2
[2018-01-02] MEDS ORDERED: LORazepam 2 MG/ML SDV IVPUSH PRN (17:07)
[2018-01-02] MEDS ORDERED: Metoprolol Tartrate 5 MG/5 ML SDV IVPUSH PRN (17:07)
[2018-01-02] MEDS ORDERED: hydrALAZINE 20 MG/ML SDV IVPUSH PRN (17:07)
[2018-01-02] MEDS: Potassium Chloride 20 MEQ Tab.ER PO SCH ×2 (18:42→21:49)
[2018-01-02] MEDS: Hydrochlorothiazide 12.5 MG Cap PO SCH (18:43)
[2018-01-03] MEDS: Acetaminophen/HYDROcodone 325-5 MG Tab PO PRN (05:19)
[2018-01-03] MEDS: Levothyroxine 88 MCG Tab PO SCH (05:20)
[2018-01-03] MEDS: Hydrochlorothiazide 12.5 MG Cap PO SCH ×2 (05:21→14:57)
[2018-01-03] MEDS: Lidocaine 2% Jelly 5 ML Tube PO SCH ×5 (05:26→23:04)
--- NOTE | 2018-01-03 08:25 | PCM.PN ---
- General Info Date of Service: 01/03/18 Admission Dx/Problem (Free Text): Admission Diagnosis/Problem Admission Diagnosis/Problem Falls Subjective Update: In to see Gwyn today. He is laying in bed sleeping when I enter the room. He does have CPAP on. We do have a good conversation although he is convinced I am a former friend of his who used to "play the accordion beautifully." I explained to him that I am not who he is thinking I am but he is adamant I am. He does remember several friends from back in the day and is asking me about them. Nurses note he is much more confused today than he was prior. It is noted that he has had minimal sleep since he has been here. He does have baseline dementia and it may be more pronounced now with minimal sleep. No weakness or gait trouble is noted. I've let case management no about this as I do have some concerns about the patient going back home. He has had multiple falls. Daughter has noted concerns as well. She reportedly states that the patient's can't take care of herself, however she does not believe she can take care of both him and herself. It is reported that he lives with his in [place]. I would suggest an assisted living facility or some type of 24/ 7 care for Gwyn. Otherwise, he is doing quite well. breathing through his nose has improved. he has been walking the halls without problem. He has been bradycardic with heart rate in the low to mid 50s. We switched his metoprolol from succinate to tartrate twice a day. we'll continue to monitor this as hopefully it improved his heart rate. Functional Status: Reports: Pain Controlled, Tolerating Diet, Ambulating, Urinating. Denies: New Symptoms - Review of Systems General: Reports: No Symptoms. Denies: Weakness, Fatigue, Malaise HEENT: Reports: No Symptoms Pulmonary: Reports: No Symptoms. Denies: Shortness of Breath, Cough, Sputum, Wheezing Cardiovascular: Reports: No Symptoms. Denies: Chest Pain, Dyspnea on Exertion Gastrointestinal: Reports: No Symptoms. Denies: Abdominal Pain, Constipation, Diarrhea, Nausea, Vomiting Genitourinary: Reports: No Symptoms Musculoskeletal: Reports: No Symptoms Skin: Reports: No Symptoms Neurological: Reports: Confusion (very pronounced today) Psychiatric: Reports: No Symptoms - Patient Data Vitals - Most Recent: Last Vital Signs Temp 97.9 F 01/03/18 04:01 Pulse 55 L 01/03/18 04:03 Resp 16 01/03/18 04:01 BP 139/57 L 01/03/18 04:03 Pulse Ox 93 L 01/03/18 04:03 Weight - Most Recent: 167 lb 11.2 oz I&O - Last 24 Hours: Intake & Output 01/02/18 01/03/18 01/03/18 22:59 06:59 14:59 Intake Total 2674 600 Output Total 1400 650 Balance 1274 -50 Lab Results Last 24 Hours: Laboratory Results - last 24 hr 01/03/18 01/03/18 Range/Units 05:55 05:55 WBC 5.09 (4.23-9.07) K/mm3 RBC 3.06 L (4.63-6.08) M/mm3 Hgb 9.9 L (13.7-17.5) gm/L Hct 30.6 L (40.1-51.0) % MCV 100.0 H (79.0-92.2) fl MCH 32.4 H (25.7-32.2) pg MCHC 32.4 (32.2-35.5) g/dl RDW Std Deviation 73.9 H (35.1-43.9) fL Plt Count 48 L (163-337) K/mm3 MPV 10.5 (9.4-12.3) fl Neut % (Auto) Cancelled Lymph % (Auto) Cancelled [place] % (Auto) Cancelled Eos % (Auto) Cancelled Baso % (Auto) Cancelled Neut # (Auto) Cancelled Lymph # (Auto) Cancelled [place] # (Auto) Cancelled Eos # (Auto) Cancelled Baso # (Auto) Cancelled Neutrophils % (Manual) 6 L (40-60) % Band Neutrophils % 0 (0-10) % Lymphocytes % (Manual) 93 H (20-40) % Atypical Lymphs % 0 % Monocytes % (Manual) 1 L (2-10) % Eosinophils % (Manual) 0 L (0.8-7.0) % Basophils % (Manual) 0 L (0.2-1.2) Manual Slide Review Cancelled Platelet Estimate Decreased Hypochromasia 3+ marked Anisocytosis 2+ moderate Sodium 136 (136-145) mEq/L Potassium 4.2 (3.5-5.1) mEq/L Chloride 104 (98-107) mEq/L Carbon Dioxide 25 (21-32) mEq/L Anion Gap 11.2 (5-15) BUN 25 H (7-18) mg/dL Creatinine 1.1 (0.7-1.3) mg/dL Est Cr Clr Drug Dosing 41.08 mL/min Estimated GFR (MDRD) > 60 (>60) mL/min BUN/Creatinine Ratio 22.7 H (14-18) Glucose 102 (83-115) mg/dL Calcium 8.6 (8.5-10.1) mg/dL Magnesium 1.9 (1.8-2.4) mg/dl C-Reactive Protein 0.8 (<1.0) mg/dL Med Orders - Current: Current Medications Hydrocodone Bitart/Acetaminophen ([place] 325-5 Mg) 1 tab PO Q4H PRN PRN Reason: Pain (moderate 4-6) Last Admin: 01/03/18 05:19 Dose: 1 tab Albuterol/Ipratropium (Duoneb 3.0-0.5 Mg/3 Ml) 3 ml NEB Q4H PRN PRN Reason: Shortness Of Breath/wheezing Amlodipine Besylate (Norvasc) 5 mg PO DAILY [facility] Last Admin: 01/02/18 09:52 Dose: 5 mg Bisacodyl (Dulcolax) 5 mg PO DAILY PRN PRN Reason: Constipation Docusate Sodium (Colace) 100 mg PO BID PRN PRN Reason: Constipation Galantamine Hydrobromide (Razadyne) 8 mg PO BID [facility] Last Admin: 01/02/18 21:51 Dose: 8 mg Hydralazine HCl (Apresoline) 10 mg IVPUSH Q4H PRN PRN Reason: Hypertension Last Admin: 01/03/18 01:06 Dose: 10 mg Hydrochlorothiazide (Hydrochlorothiazide) 12.5 mg PO BIDDIURETIC [facility] Last Admin: 01/03/18 05:21 Dose: 12.5 mg Hydromorphone HCl (Dilaudid) 0.25 mg IVPUSH Q4H PRN PRN Reason: Pain (severe 7-10) Promethazine HCl 6.25 mg/ (Sodium Chloride) 50.25 mls @ 100 mls/hr IV Q6H PRN PRN Reason: Nausea/Vomiting Isosorbide Mononitrate (Imdur) 30 mg PO DAILY [facility] Last Admin: 01/02/18 09:51 Dose: 30 mg Levothyroxine Sodium (Synthroid) 88 mcg PO ACBRK [facility] Last Admin: 01/03/18 05:20 Dose: 88 mcg Lidocaine HCl (Xylocaine 2% Jelly) 0 ml PO 5XDAY [facility] Last Admin: 01/03/18 05:26 Dose: 1 applic Lisinopril (Prinivil) 10 mg PO DAILY [facility] Last Admin: 01/02/18 09:52 Dose: 10 mg Lorazepam (Ativan) 0.25 mg IV Q6H PRN PRN Reason: Anxiety Lorazepam (Ativan) 2 mg IVPUSH Q4H PRN PRN Reason: Seizures Magnesium Sulfate (Pharmacy To Dose - Magnesium Replacement) 0 dose .XX ASDIRECTED PRN PRN Reason: RX TO WATCH MAGNESIUM LEVELS Metoprolol Succinate (Toprol Xl) 25 mg PO DAILY [facility] Metoprolol Tartrate (Lopressor) 5 mg IVPUSH Q4H PRN PRN Reason: Tachycardia Metronidazole (Flagyl) 500 mg PO TID [facility] Last Admin: 01/02/18 21:50 Dose: 500 mg Multivitamins (Thera) 1 each PO DAILY [facility] Last Admin: 01/02/18 09:50 Dose: 1 each Mupirocin (Bactroban Oint) 0 gm TOP BID [facility] Last Admin: 01/02/18 21:53 Dose: 1 applic Naproxen (Naprosyn) 375 mg PO Q12HR [facility] Last Admin: 01/02/18 21:51 Dose: 375 mg Neomycin/Polymyxin/Bacitracin (Neosporin Oint) 0 gm TOP TID [facility] Last Admin: 01/02/18 21:54 Dose: Not Given Nitroglycerin (Nitrostat) 0.4 mg SL ASDIRECTED PRN PRN Reason: Chest Pain Ondansetron HCl (Zofran) 4 mg IV Q6H PRN PRN Reason: Nausea/Vomiting Oxymetazoline HCl (Afrin Original 0.05% Nasal [place]) 0 ml TRUDY Q12HR PRN PRN Reason: Congestion Polyethylene Glycol (Miralax) 17 gm PO DAILY PRN PRN Reason: Constipation Potassium Chloride (Pharmacy To Dose - Potassium Replacement) 0 dose .XX ASDIRECTED PRN PRN Reason: RX TO WATCH K LEVELS Senna/Docusate Sodium (Senna Plus) 1 tab PO BID PRN PRN Reason: Constipation Sodium Chloride ([place] Nasal [place]) 0 ml NASBOTH BID PRN PRN Reason: Dryness Tamsulosin HCl (Flomax) 0.4 mg PO BID [facility] Last Admin: 01/02/18 21:48 Dose: 0.4 mg Temazepam (Restoril) 15 mg PO BEDTIME PRN PRN Reason: Sleep Timolol Maleate (Timoptic 0.5% [facility]) 0 ml EYELF DAILY [facility] Last Admin: 01/02/18 09:49 Dose: 1 drop Discontinued Medications Acetaminophen (Tylenol) 650 mg PO NOW ONE Stop: 12/31/17 15:21 Last Admin: 12/31/17 15:30 Dose: 650 mg Dexamethasone (Dexamethasone) 4 mg IVPUSH ONETIME ONE Stop: 01/01/18 12:53 Last Admin: 01/01/18 14:25 Dose: 4 mg Diphenhydramine HCl (Benadryl) 25 mg IV ONETIME ONE Stop: 01/01/18 12:53 Last Admin: 01/01/18 14:24 Dose: 25 mg Sodium Chloride (Normal Saline) 1,000 mls @ 50 mls/hr IV ASDIRECTED [facility] Last Admin: 01/02/18 00:11 Dose: 50 mls/hr Sodium Chloride (Normal Saline) 250 mls @ 100 mls/hr IV ASDIRECTED [facility] Metoprolol Succinate (Toprol Xl) 50 mg PO DAILY [facility] Last Admin: 01/02/18 10:01 Dose: 50 mg Potassium Chloride (Klor-Con M20) 40 meq PO Q4H [facility] Stop: 01/02/18 22:01 Last Admin: 01/02/18 21:49 Dose: 40 meq - Exam Quality Assessment: DVT Prophylaxis General: Alert, Cooperative, No Acute Distress HEENT: Pupils Equal, Pupils Reactive, EOMI, Mucous Membr. Moist/[place], Other ( Dried blood in bilateral nares ) Neck: Supple, Trachea Midline, No JVD Lungs: Clear to Auscultation, Normal Respiratory Effort, Decreased Breath Sounds Cardiovascular: Regular Rate, Regular Rhythm GI/Abdominal Exam: Normal Bowel Sounds, Soft, Non-Tender, No Organomegaly, No Distention, No Abnormal Bruit, No Mass, Pelvis Stable (Male) Exam: Deferred Back Exam: Normal Inspection, Full Range of Motion Extremities: Normal Inspection, Normal Range of Motion, Non-Tender, No Pedal Edema, Normal Capillary Refill Peripheral Pulses: 3+: Radial (L), Radial (R), Posterior Tibial (L), Posterior Tibial (R), Dorsalis Pedis (L), Dorsalis Pedis (R) Skin: Warm, Dry, Intact Neurological: No New Focal Deficit Psy/Mental Status: Alert, Normal Affect, Normal Mood - Problem List & Annotations (1) Anemia SNOMED Code(s): 973150253 Code(s): D64.9 - ANEMIA, UNSPECIFIED Status: Acute Current Visit: Yes Qualifiers: Anemia type: bone marrow failure Bone marrow failure anemia type: pancytopenia, antineoplastic chemotherapy-induced Qualified Code(s): D61.810 - Antineoplastic chemotherapy induced pancytopenia; T45.1X5A - Adverse effect of antineoplastic and immunosuppressive drugs, initial encounter; T45.1X5A - Adverse effect of antineoplastic and immunosuppressive drugs, initial encounter (2) Nasal septal ulcer SNOMED Code(s): 14103638 Code(s): J34.0 - ABSCESS, FURUNCLE AND CARBUNCLE OF NOSE Status: Acute Priority: High Current Visit: Yes (3) Alzheimer disease SNOMED Code(s): 93640277 Code(s): G30.9 - ALZHEIMER'S DISEASE, UNSPECIFIED Status: Chronic Priority: Low Current Visit: No Qualifiers: Alzheimer's disease onset: unspecified onset Dementia behavioral disturbance: without behavioral disturbance Qualified Code(s): G30.9 - Alzheimer's disease, unspecified; F02.80 - Dementia in other diseases classified elsewhere without behavioral disturbance; F02.80 - Dementia in other diseases classified elsewhere without behavioral disturbance; F02.80 - Dementia in other diseases classified elsewhere without behavioral disturbance (4) Bradycardia SNOMED Code(s): 47141959 Code(s): R00.1 - BRADYCARDIA, UNSPECIFIED Status: Chronic Priority: Low Current Visit: No (5) Lymphoma SNOMED Code(s): 708743256 Code(s): C85.90 - NON-HODGKIN LYMPHOMA, UNSPECIFIED, UNSPECIFIED SITE Status: Chronic Priority: Medium Current Visit: No Qualifiers: Lymphoma type: unspecified type Lymphoma site: multiple regions Qualified Code(s): C85.98 - Non-Hodgkin lymphoma, unspecified, lymph nodes of multiple sites (6) BPH (benign prostatic hyperplasia) SNOMED Code(s): 570317263 Code(s): N40.0 - BENIGN PROSTATIC HYPERPLASIA WITHOUT LOWER URINRY TRACT SYMP Status: Chronic Priority: Low Current Visit: No Qualifiers: Lower urinary tract symptom presence: unspecified whether lower urinary tract symptoms present Qualified Code(s): N40.0 - Benign prostatic hyperplasia without lower urinary tract symptoms (7) CAD (coronary artery disease) SNOMED Code(s): 22364381 Code(s): I25.10 - ATHSCL HEART DISEASE OF [place] CORONARY ARTERY W/O ANG PCTRS Status: Chronic Priority: Low Current Visit: No Qualifiers: Coronary Disease-Associated Artery/Lesion type: unspecified vessel or lesion type Tribe vs. transplanted heart: [place] heart Associated angina: angina presence unspecified Qualified Code(s): I25.10 - Atherosclerotic heart disease of [place] coronary artery without angina pectoris (8) CHF (congestive heart failure) SNOMED Code(s): 22816689 Code(s): I50.9 - HEART FAILURE, UNSPECIFIED Status: Chronic Priority: Medium Current Visit: No (9) COPD (chronic obstructive pulmonary disease) SNOMED Code(s): 19068162 Code(s): J44.9 - CHRONIC OBSTRUCTIVE PULMONARY DISEASE, UNSPECIFIED Status : Chronic Priority: Medium Current Visit: No Qualifiers: COPD type: unspecified COPD Qualified Code(s): J44.9 - Chronic obstructive pulmonary disease, unspecified (10) HLD (hyperlipidemia) SNOMED Code(s): 21075945 Code(s): E78.5 - HYPERLIPIDEMIA, UNSPECIFIED Status: Chronic Priority: Low Current Visit: No Qualifiers: Hyperlipidemia type: pure hypercholesterolemia Qualified Code(s): E78.00 - Pure hypercholesterolemia, unspecified; E78.0 - Pure hypercholesterolemia (11) HTN (hypertension) SNOMED Code(s): 53366930 Code(s): I10 - ESSENTIAL (PRIMARY) HYPERTENSION Status: Chronic Priority : Low Current Visit: No Qualifiers: Hypertension type: essential hypertension Qualified Code(s): I10 - Essential (primary) hypertension (12) Hypothyroid SNOMED Code(s): 35733942 Code(s): E03.9 - HYPOTHYROIDISM, UNSPECIFIED Status: Chronic Priority: Low Current Visit: No Qualifiers: Hypothyroidism type: acquired Qualified Code(s): E03.9 - Hypothyroidism, unspecified - Problem List Review Problem List Initiated/Reviewed/Updated: Yes - Plan Plan:: Assessment/Plan: Acute: Pancytopenia, Improved - Acute vs Chronic - Low: WBC, RBC, Hgb, Hct, Platelet, other bone marrow cell lines - Folic Acid, Vit B 12 --> WNL; - MMA-->pending - Monitor Hgb--> 7.9: He meets criteria for transfusion: CA patient with ongoing significant nose bleeds, CAD S/p CABG, Pos rectal bleed - Hemoccult pos; Hgb is now at 10 S/p 2 units of PRBC transfusion - Hgb steady at 9.9 - Recent transfusion was back in October according to daughter - Dr. 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 Asymptomatic Bradycardia - Cut down Toprol XL to 25 mg po daily--> switch to metoprolol tartrate 25mg BID HTN - Not controlled on admission - He is CCB, ACEI, Imdur and BB - Added low dose HCTZ 12.5 mg po BID and PRN Hydralazine - Controlled now Confusion - Has baseline dementia - Appears worse than normal over past day or so - Have held Restoril due to frequent falls - Patient has had minimal sleep over the past few days - No weakness, gait disturbance, speech difficulty, facial droop - CT negative in ED - Continue to monitor Resolved: S/p Fall - Has had 2-3 unwitnessed fall in the past several days - Risk factors: OA/DJD, Dementia, Insomnia, Impaired Vision and Urinary Incontinence - Was told family is able to take care of him with and [facility] as care givers S/p Epistaxis on Bilateral Nare - S/p radiation therapy - Platelet is 38K-->48K - Has had significant bleed overnight - Consider platelet transfusion to slow down bleed Chronic: Impaired Vision CAD s/p CABG HF with Unknown EF HTN HLD COPD Sleep Apnea Hx/o GI Bleed BPH CKD Urinary Incontinence Back pain OA/DJD Seizure Disorder Hypothyroidism Insomnia Alzheimer's Dementia Skin Cancer S/p Radiation Plan: He remains clinically stable. He breaths better through his nose. Worse confusion today. Continue current treatment Routine AM Labs Fall Precautions Continue PT/OT SW/CM for d/c planning Additional orders as above Code status: DNR/DNI; PCP: Dr. Reynolds Possible d/eleni 1-2 days.
[2018-01-03] MEDS ORDERED: Metoprolol Succinate 25 MG Tab.ER PO SCH (09:00)
[2018-01-03] MEDS: Multivitamins,Therapeutic Tab PO SCH (09:21)
[2018-01-03] MEDS: Tamsulosin 0.4 MG Cap.ER PO SCH ×2 (09:22→22:56)
[2018-01-03] MEDS: metroNIDAZOLE 500 MG Tab PO SCH ×3 (09:22→22:58)
[2018-01-03] MEDS: Isosorbide Mononitrate 30 MG Tab.ER PO SCH (09:22)
[2018-01-03] MEDS: Mupirocin Oint 22 GM Tube TOP SCH ×2 (09:23→23:05)
[2018-01-03] MEDS: amLODIPine 5 MG Tab PO SCH (09:24)
[2018-01-03] MEDS: Lisinopril 10 MG Tab PO SCH (09:24)
[2018-01-03] MEDS: Bacitracin/Neomycin/Polymyxin B Oint 15 GM Tube TOP SCH ×3 (09:25→23:03)
[2018-01-03] MEDS: Timolol Maleate 0.5% Ophth Soln 5 ML Bottle EYELF SCH (09:25)
--- NOTE | 2018-01-03 10:35 | CONS ---
CONSULTING PHYSICIAN: Sanya oDuglass MD DATE OF CONSULTATION: 01/01/2018 HISTORY OF PRESENT ILLNESS: The patient is an 87-year-old. I was asked to see because of guaiac-positive stools and whether any further workup is needed. The patient was admitted to the hospital because of weakness and falling. Last year, he underwent for rectal bleeding a colonoscopy, polypectomy, and likely an upper GI endoscopy. 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 He underwent chemotherapy and 2 courses, did not feel good. This was discontinued in September of last year. 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 He is having a little bit of nasal bleeding. The patient was then placed in the hospital. He has a nasal packing in place. His hemoglobin was 8.9 yesterday and 7.9 today. He does have a white count that is low at 3.4 and platelet count of 38,000. The patient denies any nonsteroidal use and medication per medication reconciliation form. Denies any chest pain, shortness of breath, abdominal pain, nausea, and vomiting. Does have fainting weakness. FAMILY HISTORY: Negative for colon cancer. CURRENT MEDICAL PROBLEMS: Are that of coronary artery disease and history of bypass, history of heart failure, hypertension, and history of MIs in the past. He has sleep apnea, some COPD, chronic renal failure, Alzheimer disease with poor memory, hyperthyroidism, need for blood transfusion, and skin cancer as stated above. His creatinine clearance is greater than 60 with a creatinine of 1.1 and BUN of 19. PHYSICAL EXAMINATION: GENERAL: Reveals an alert and cooperative male. VITAL SIGNS: He has a temperature of 99, pulse about 52, and blood pressure 115/51. NEURO: His memory is poor for short-term and long-term memory. Otherwise, he is oriented to time and place and person. No sensorineural deficit noted. SKIN: Warm and dry. EYES: Sclerae white. Oral cavity healthy. NECK: Supple. LUNGS: Clear. HEART: Heart tones regular rate. Sinus bradycardia. ABDOMEN: Soft. Neck shows swelling bilaterally in the cervical nodes consistent with lymphoma and there is packing in the right nose and there is a sore on the tip of the nose. ASSESSMENT: 1. Lymphoma and CLL, status post treatment. 2. Pancytopenia due to his recent chemotherapy. 3. Bleeding from the nose secondary to radiation treatment to the lymphoma of the nose. 4. Guaiac-positive stools, probably from the nosebleed. Recent colonoscopy. Do not recommend against further workup and no need for any this time secondary to his chemotherapy. MMODAL /[id number]
[2018-01-03] MEDS: Metoprolol Tartrate 25 MG Tab PO SCH (22:59)
[2018-01-04] MEDS: Hydrochlorothiazide 12.5 MG Cap PO SCH ×2 (06:41→14:54)
[2018-01-04] MEDS: Levothyroxine 88 MCG Tab PO SCH (06:41)
[2018-01-04] MEDS: Lidocaine 2% Jelly 5 ML Tube PO SCH ×3 (06:42→14:55)
--- NOTE | 2018-01-04 09:34 | PCM.PN ---
- General Info Date of Service: 01/04/18 Admission Dx/Problem (Free Text): Admission Diagnosis/Problem Admission Diagnosis/Problem Falls Subjective Update: In to see Gwyn. He is much less confused today. I suspect this may have to do with him getting a full night sleep as he has had minimal sleep since admission. He is telling many stories about his past. I explained to him how he was very confused yesterday and thought I was a friend of his. From my details he was able to remember who I was talking about and tell me the story about a roommate in his. He is complaining of nose pain, which he says is his norm. CRP is back to normal. White count looks good. He has no other complaints. Nursing has held some blood pressure medications as he has been somewhat low. I will continue to adjust his medications to try to find a good area. Functional Status: Reports: Pain Controlled, Tolerating Diet, Ambulating, Urinating. Denies: New Symptoms - Review of Systems General: Reports: Weakness (mild ) HEENT: Reports: Other (Nose pain and mild pink colored drainage ) Pulmonary: Reports: No Symptoms Cardiovascular: Reports: No Symptoms Gastrointestinal: Reports: No Symptoms Genitourinary: Reports: No Symptoms Musculoskeletal: Reports: No Symptoms Skin: Reports: No Symptoms Neurological: Reports: Confusion (much improved from yesterday ) Psychiatric: Reports: No Symptoms - Patient Data Vitals - Most Recent: Last Vital Signs Temp 98.8 F 01/04/18 07:39 Pulse 67 01/04/18 07:39 Resp 20 01/04/18 07:39 BP 126/80 01/04/18 07:39 Pulse Ox 91 L 01/04/18 07:39 Weight - Most Recent: 168 lb 8 oz I&O - Last 24 Hours: Intake & Output 01/03/18 01/04/18 01/04/18 22:59 06:59 14:59 Intake Total 980 800 Output Total 600 1800 Balance 380 -1000 Lab Results Last 24 Hours: Laboratory Results - last 24 hr 01/01/18 01/04/18 01/04/18 Range/Units 05:40 05:35 05:35 WBC 4.47 (4.23-9.07) K/mm3 RBC 3.14 L (4.63-6.08) M/mm3 Hgb 10.1 L (13.7-17.5) gm/L Hct 31.5 L (40.1-51.0) % MCV 100.3 H (79.0-92.2) fl MCH 32.2 (25.7-32.2) pg MCHC 32.1 L (32.2-35.5) g/dl RDW Std Deviation 71.7 H (35.1-43.9) fL Plt Count 45 L (163-337) K/mm3 MPV 11.6 (9.4-12.3) fl Neut % (Auto) 2.1 L (34.0-67.9) % Lymph % (Auto) 59.7 H (21.8-53.1) % [place] % (Auto) 37.8 H (5.3-12.2) % Eos % (Auto) 0.4 L (0.8-7.0) Baso % (Auto) 0.0 L (0.1-1.2) % Neut # (Auto) 0.09 L (1.78-5.38) K/mm3 Lymph # (Auto) 2.67 (1.32-3.57) K/mm3 [place] # (Auto) 1.69 H (0.30-0.82) K/mm3 Eos # (Auto) 0.02 L (0.04-0.54) K/mm3 Baso # (Auto) 0.00 L (0.01-0.08) K/mm3 Manual Slide Review Abnormal smear Sodium 140 (136-145) mEq/L Potassium 3.9 (3.5-5.1) mEq/L Chloride 105 (98-107) mEq/L Carbon Dioxide 25 (21-32) mEq/L Anion Gap 13.9 (5-15) BUN 25 H (7-18) mg/dL Creatinine 1.1 (0.7-1.3) mg/dL Est Cr Clr Drug Dosing 41.08 mL/min Estimated GFR (MDRD) > 60 (>60) mL/min BUN/Creatinine Ratio 22.7 H (14-18) Glucose 94 (83-115) mg/dL Calcium 8.6 (8.5-10.1) mg/dL Magnesium 2.0 (1.8-2.4) mg/dl C-Reactive Protein < 0.2 (<1.0) mg/dL Vitamin D 25-Hydroxy 25 L (30-100) ng/mL Med Orders - Current: Current Medications Hydrocodone Bitart/Acetaminophen ([place] 325-5 Mg) 1 tab PO Q4H PRN PRN Reason: Pain (moderate 4-6) Last Admin: 01/03/18 05:19 Dose: 1 tab Albuterol/Ipratropium (Duoneb 3.0-0.5 Mg/3 Ml) 3 ml NEB Q4H PRN PRN Reason: Shortness Of Breath/wheezing Amlodipine Besylate (Norvasc) 5 mg PO DAILY [facility] Last Admin: 01/03/18 09:24 Dose: 5 mg Bisacodyl (Dulcolax) 5 mg PO DAILY PRN PRN Reason: Constipation Docusate Sodium (Colace) 100 mg PO BID PRN PRN Reason: Constipation Galantamine Hydrobromide (Razadyne) 8 mg PO BID [facility] Last Admin: 01/03/18 22:56 Dose: 8 mg Hydralazine HCl (Apresoline) 10 mg IVPUSH Q4H PRN PRN Reason: Hypertension Last Admin: 01/03/18 01:06 Dose: 10 mg Hydrochlorothiazide (Hydrochlorothiazide) 12.5 mg PO BIDDIURETIC [facility] Last Admin: 01/04/18 06:41 Dose: 12.5 mg Hydromorphone HCl (Dilaudid) 0.25 mg IVPUSH Q4H PRN PRN Reason: Pain (severe 7-10) Promethazine HCl 6.25 mg/ (Sodium Chloride) 50.25 mls @ 100 mls/hr IV Q6H PRN PRN Reason: Nausea/Vomiting Isosorbide Mononitrate (Imdur) 30 mg PO DAILY [facility] Last Admin: 01/03/18 09:22 Dose: 30 mg Levothyroxine Sodium (Synthroid) 88 mcg PO ACBRK [facility] Last Admin: 01/04/18 06:41 Dose: 88 mcg Lidocaine HCl (Xylocaine 2% Jelly) 0 ml PO 5XDAY [facility] Last Admin: 01/04/18 06:42 Dose: Not Given Lisinopril (Prinivil) 10 mg PO DAILY [facility] Last Admin: 01/03/18 09:24 Dose: 10 mg Lorazepam (Ativan) 0.25 mg IV Q6H PRN PRN Reason: Anxiety Lorazepam (Ativan) 2 mg IVPUSH Q4H PRN PRN Reason: Seizures Magnesium Sulfate (Pharmacy To Dose - Magnesium Replacement) 0 dose .XX ASDIRECTED PRN PRN Reason: RX TO WATCH MAGNESIUM LEVELS Metoprolol Tartrate (Lopressor) 5 mg IVPUSH Q4H PRN PRN Reason: Tachycardia Metoprolol Tartrate (Lopressor) 25 mg PO Q12HR [facility] Last Admin: 01/03/18 22:59 Dose: Not Given Metronidazole (Flagyl) 500 mg PO TID [facility] Last Admin: 01/03/18 22:58 Dose: 500 mg Multivitamins (Thera) 1 each PO DAILY [facility] Last Admin: 01/03/18 09:21 Dose: 1 each Mupirocin (Bactroban Oint) 0 gm TOP BID [facility] Last Admin: 01/03/18 23:05 Dose: 1 applic Naproxen (Naprosyn) 375 mg PO Q12HR [facility] Last Admin: 01/03/18 23:07 Dose: Not Given Neomycin/Polymyxin/Bacitracin (Neosporin Oint) 0 gm TOP TID [facility] Last Admin: 01/03/18 23:03 Dose: Not Given Nitroglycerin (Nitrostat) 0.4 mg SL ASDIRECTED PRN PRN Reason: Chest Pain Ondansetron HCl (Zofran) 4 mg IV Q6H PRN PRN Reason: Nausea/Vomiting Oxymetazoline HCl (Afrin Original 0.05% Nasal [place]) 0 ml TRUDY Q12HR PRN PRN Reason: Congestion Polyethylene Glycol (Miralax) 17 gm PO DAILY PRN PRN Reason: Constipation Potassium Chloride (Pharmacy To Dose - Potassium Replacement) 0 dose .XX ASDIRECTED PRN PRN Reason: RX TO WATCH K LEVELS Senna/Docusate Sodium (Senna Plus) 1 tab PO BID PRN PRN Reason: Constipation Sodium Chloride ([place] Nasal [place]) 0 ml NASBOTH BID PRN PRN Reason: Dryness Tamsulosin HCl (Flomax) 0.4 mg PO BID [facility] Last Admin: 01/03/18 22:56 Dose: 0.4 mg Temazepam (Restoril) 15 mg PO BEDTIME PRN PRN Reason: Sleep Last Admin: 01/03/18 22:55 Dose: 15 mg Timolol Maleate (Timoptic 0.5% Ophth Soln) 0 ml EYELF DAILY [facility] Last Admin: 01/03/18 09:25 Dose: 1 drop Discontinued Medications Acetaminophen (Tylenol) 650 mg PO NOW ONE Stop: 12/31/17 15:21 Last Admin: 12/31/17 15:30 Dose: 650 mg Dexamethasone (Dexamethasone) 4 mg IVPUSH ONETIME ONE Stop: 01/01/18 12:53 Last Admin: 01/01/18 14:25 Dose: 4 mg Diphenhydramine HCl (Benadryl) 25 mg IV ONETIME ONE Stop: 01/01/18 12:53 Last Admin: 01/01/18 14:24 Dose: 25 mg Sodium Chloride (Normal Saline) 1,000 mls @ 50 mls/hr IV ASDIRECTED [facility] Last Admin: 01/02/18 00:11 Dose: 50 mls/hr Sodium Chloride (Normal Saline) 250 mls @ 100 mls/hr IV ASDIRECTED [facility] Metoprolol Succinate (Toprol Xl) 50 mg PO DAILY [facility] Last Admin: 01/02/18 10:01 Dose: 50 mg Metoprolol Succinate (Toprol Xl) 25 mg PO DAILY [facility] Last Admin: 01/03/18 09:59 Dose: Not Given Potassium Chloride (Klor-Con M20) 40 meq PO Q4H [facility] Stop: 01/02/18 22:01 Last Admin: 01/02/18 21:49 Dose: 40 meq - Exam Quality Assessment: DVT Prophylaxis General: Alert, Oriented, Cooperative, No Acute Distress HEENT: Pupils Equal, Pupils Reactive, EOMI, Mucous Membr. Moist/[place] Neck: Supple, Trachea Midline, No JVD Lungs: Clear to Auscultation, Normal Respiratory Effort Cardiovascular: Regular Rate, Regular Rhythm GI/Abdominal Exam: Normal Bowel Sounds, Soft, Non-Tender, No Organomegaly, No Distention, No Abnormal Bruit, No Mass, Pelvis Stable (Male) Exam: Deferred Back Exam: Normal Inspection, Full Range of Motion Extremities: Normal Inspection, Normal Range of Motion, Non-Tender, No Pedal Edema, Normal Capillary Refill Peripheral Pulses: 3+: Radial (L), Radial (R), Posterior Tibial (L), Posterior Tibial (R), Dorsalis Pedis (L), Dorsalis Pedis (R) Skin: Warm, Dry, Intact Neurological: No New Focal Deficit Psy/Mental Status: Alert, Normal Affect, Normal Mood, Other (much improved confusion from yesterday ) - Problem List & Annotations (1) Anemia SNOMED Code(s): 789303051 Code(s): D64.9 - ANEMIA, UNSPECIFIED Status: Acute Current Visit: Yes Qualifiers: Anemia type: bone marrow failure Bone marrow failure anemia type: pancytopenia, antineoplastic chemotherapy-induced Qualified Code(s): D61.810 - Antineoplastic chemotherapy induced pancytopenia; T45.1X5A - Adverse effect of antineoplastic and immunosuppressive drugs, initial encounter; T45.1X5A - Adverse effect of antineoplastic and immunosuppressive drugs, initial encounter (2) Nasal septal ulcer SNOMED Code(s): 12230568 Code(s): J34.0 - ABSCESS, FURUNCLE AND CARBUNCLE OF NOSE Status: Acute Priority: High Current Visit: Yes (3) Alzheimer disease SNOMED Code(s): 10643239 Code(s): G30.9 - ALZHEIMER'S DISEASE, UNSPECIFIED Status: Chronic Priority: Low Current Visit: No Qualifiers: Alzheimer's disease onset: unspecified onset Dementia behavioral disturbance: without behavioral disturbance Qualified Code(s): G30.9 - Alzheimer's disease, unspecified; F02.80 - Dementia in other diseases classified elsewhere without behavioral disturbance; F02.80 - Dementia in other diseases classified elsewhere without behavioral disturbance; F02.80 - Dementia in other diseases classified elsewhere without behavioral disturbance (4) Bradycardia SNOMED Code(s): 99538553 Code(s): R00.1 - BRADYCARDIA, UNSPECIFIED Status: Chronic Priority: Low Current Visit: No (5) Lymphoma SNOMED Code(s): 394559011 Code(s): C85.90 - NON-HODGKIN LYMPHOMA, UNSPECIFIED, UNSPECIFIED SITE Status: Chronic Priority: Medium Current Visit: No Qualifiers: Lymphoma type: unspecified type Lymphoma site: multiple regions Qualified Code(s): C85.98 - Non-Hodgkin lymphoma, unspecified, lymph nodes of multiple sites (6) BPH (benign prostatic hyperplasia) SNOMED Code(s): 083432194 Code(s): N40.0 - BENIGN PROSTATIC HYPERPLASIA WITHOUT LOWER URINRY TRACT SYMP Status: Chronic Priority: Low Current Visit: No Qualifiers: Lower urinary tract symptom presence: unspecified whether lower urinary tract symptoms present Qualified Code(s): N40.0 - Benign prostatic hyperplasia without lower urinary tract symptoms (7) CAD (coronary artery disease) SNOMED Code(s): 29389833 Code(s): I25.10 - ATHSCL HEART DISEASE OF [place] CORONARY ARTERY W/O ANG PCTRS Status: Chronic Priority: Low Current Visit: No Qualifiers: Coronary Disease-Associated Artery/Lesion type: unspecified vessel or lesion type [place] vs. transplanted heart: [place] heart Associated angina: angina presence unspecified Qualified Code(s): I25.10 - Atherosclerotic heart disease of [place] coronary artery without angina pectoris (8) CHF (congestive heart failure) SNOMED Code(s): 18894844 Code(s): I50.9 - HEART FAILURE, UNSPECIFIED Status: Chronic Priority: Medium Current Visit: No (9) COPD (chronic obstructive pulmonary disease) SNOMED Code(s): 48460721 Code(s): J44.9 - CHRONIC OBSTRUCTIVE PULMONARY DISEASE, UNSPECIFIED Status : Chronic Priority: Medium Current Visit: No Qualifiers: COPD type: unspecified COPD Qualified Code(s): J44.9 - Chronic obstructive pulmonary disease, unspecified (10) HLD (hyperlipidemia) SNOMED Code(s): 92348680 Code(s): E78.5 - HYPERLIPIDEMIA, UNSPECIFIED Status: Chronic Priority: Low Current Visit: No Qualifiers: Hyperlipidemia type: pure hypercholesterolemia Qualified Code(s): E78.00 - Pure hypercholesterolemia, unspecified; E78.0 - Pure hypercholesterolemia (11) HTN (hypertension) SNOMED Code(s): 46859433 Code(s): I10 - ESSENTIAL (PRIMARY) HYPERTENSION Status: Chronic Priority : Low Current Visit: No Qualifiers: Hypertension type: essential hypertension Qualified Code(s): I10 - Essential (primary) hypertension (12) Hypothyroid SNOMED Code(s): 55969073 Code(s): E03.9 - HYPOTHYROIDISM, UNSPECIFIED Status: Chronic Priority: Low Current Visit: No Qualifiers: Hypothyroidism type: acquired Qualified Code(s): E03.9 - Hypothyroidism, unspecified - Problem List Review Problem List Initiated/Reviewed/Updated: Yes - My Orders Last 24 Hours: My Active Orders 01/03/18 21:00 Metoprolol Tartrate [Lopressor] 25 mg PO Q12HR - Plan Plan:: Assessment/Plan: Acute: Pancytopenia, Improved - Acute vs Chronic - Low: WBC, RBC, Hgb, Hct, Platelet, other bone marrow cell lines - Folic Acid, Vit B 12 --> WNL; - MMA-->pending - Monitor Hgb--> 7.9: He meets criteria for transfusion: CA patient with ongoing significant nose bleeds, CAD S/p CABG, Pos rectal bleed - Hemoccult pos; Hgb is now at 10 S/p 2 units of PRBC transfusion - Hgb steady at 9.9-->10.1 - Recent transfusion was back in October according to daughter - Dr. 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 Asymptomatic Bradycardia - Cut down Toprol XL to 25 mg po daily--> switch to metoprolol tartrate 25mg BID HTN - Not controlled on admission - He is CCB, ACEI, Imdur and BB - Added low dose HCTZ 12.5 mg po BID and PRN Hydralazine - Controlled now Confusion, improved today - Has baseline dementia - Appears worse than normal over past day or so - Have held Restoril due to frequent falls - Patient has had minimal sleep over the past few days - No weakness, gait disturbance, speech difficulty, facial droop - CT negative in ED - Continue to monitor Resolved: S/p Fall - Has had 2-3 unwitnessed fall in the past several days - Risk factors: OA/DJD, Dementia, Insomnia, Impaired Vision and Urinary Incontinence - Was told family is able to take care of him with and [facility] as care givers S/p Epistaxis on Bilateral Nare - S/p radiation therapy - Platelet is 38K-->48K - Has had significant bleed overnight - Consider platelet transfusion to slow down bleed Vitamin D deficiency - Vitamin D is 25 - Supplement Chronic: Impaired Vision CAD s/p CABG HF with Unknown EF HTN HLD COPD Sleep Apnea Hx/o GI Bleed BPH CKD Urinary Incontinence Back pain OA/DJD Seizure Disorder Hypothyroidism Insomnia Alzheimer's Dementia Skin Cancer S/p Radiation Plan: He remains clinically stable. He breaths better through his nose. Improved confusion today. Continue current treatment Routine AM Labs Fall Precautions Continue PT/OT SW/CM for d/c planning - consider assisted living Additional orders as above Code status: DNR/DNI; PCP: Dr. Reynolds Possible d/c in 1-2 days.
[2018-01-04] MEDS: Mupirocin Oint 22 GM Tube TOP SCH ×2 (10:11→21:13)
[2018-01-04] MEDS: Timolol Maleate 0.5% Ophth Soln 5 ML Bottle EYELF SCH (10:12)
[2018-01-04] MEDS: Tamsulosin 0.4 MG Cap.ER PO SCH ×2 (10:13→21:11)
[2018-01-04] MEDS: metroNIDAZOLE 500 MG Tab PO SCH (10:14)
[2018-01-04] MEDS: Multivitamins,Therapeutic Tab PO SCH (10:16)
[2018-01-04] MEDS: Bacitracin/Neomycin/Polymyxin B Oint 15 GM Tube TOP SCH ×3 (10:17→21:14)
[2018-01-04] MEDS: Isosorbide Mononitrate 30 MG Tab.ER PO SCH (10:46)
[2018-01-04] MEDS: Metoprolol Tartrate 25 MG Tab PO SCH ×2 (10:47→21:12)
[2018-01-04] MEDS: Lisinopril 10 MG Tab PO SCH (10:47)
[2018-01-04] MEDS: amLODIPine 5 MG Tab PO SCH (10:47)
[2018-01-04] MEDS ORDERED: Lidocaine 2% Jelly 5 ML Tube MUCMEM PRN (17:43)
[2018-01-04] MEDS: Acetaminophen/HYDROcodone 325-5 MG Tab PO PRN (21:12)
[2018-01-05] MEDS: Hydrochlorothiazide 12.5 MG Cap PO SCH (05:27)
[2018-01-05] MEDS: Levothyroxine 88 MCG Tab PO SCH (05:27)
[2018-01-05] MEDS ORDERED: Cholecalciferol (Vitamin D3) 1,000 Unit Tab PO SCH (09:00)
[2018-01-05] MEDS ORDERED: Metoprolol Succinate 25 MG Tab.ER PO SCH (09:00)
[2018-01-05] MEDS ORDERED: HYDROmorphone 0.5 MG/0.5 ML SYRINGE IVPUSH PRN (09:41)
[2018-01-05] MEDS: Mupirocin Oint 22 GM Tube TOP SCH (09:41)
[2018-01-05] MEDS: Lisinopril 10 MG Tab PO SCH (09:42)
[2018-01-05] MEDS: Isosorbide Mononitrate 30 MG Tab.ER PO SCH (09:42)
[2018-01-05] MEDS: Bacitracin/Neomycin/Polymyxin B Oint 15 GM Tube TOP SCH (09:43)
[2018-01-05] MEDS: Multivitamins,Therapeutic Tab PO SCH (09:43)
[2018-01-05] MEDS: Tamsulosin 0.4 MG Cap.ER PO SCH (09:43)
[2018-01-05] MEDS: Timolol Maleate 0.5% Ophth Soln 5 ML Bottle EYELF SCH (09:49)
[2018-01-05] MEDS: amLODIPine 5 MG Tab PO SCH (09:49)
[2018-01-05] MEDS ORDERED: Magnesium Oxide 400 MG Tab PO ONE (10:00)
--- NOTE | 2018-01-05 12:53 | PCM.DCSUM1 ---
Discharge Summary - Hospital Course HPI Initial Comments: This is an 87 yo elderly white male Impaired Vision, CAD S/p CABG, HF with Unknown EF, HTN, HLD, COPD, Sleep Apnea, Hx/o GI Bleed with blood transfusions, BPH, Chronic Renal Insufficiency, Urinary Incontinence, Back Pain, OA/DJD, Seizure Disorder, Hypothyroidism, Insomnia, Alzheimer's Dementia, Lymphoma and Skin Cancer S/p Radiation who comes in for evaluation of multiple issues of generalized weakness/tiredness, 2-3 episode of unwitnessed falls, moderate facial pain and bloody nose S/p radiation therapy. He denies any chest pain or shortness of breath. No fever, chills, gastrointestinal issues, and other signs of systemic infections. His initial workup in the emergency department shows a CBC significantly remarkable for WBC of 3.12, RBC of 2.48, hemoglobin of 8, hematocrit of 26.5, MCV of 106.9, MCH of 32.3, RDW of 77.6, platelet of 38, MPV of 12.4, neutrophils of 4.5%, lymphocyte of 65.4%, monocytes of 29.8%, eosinophils of 0.3%, and basophils of 0%. His coagulation study shows PT of 10.7 and INR of 1. His chemistry is remarkable for BUN of 19, glucose of 117, alkaline phosphatase of 163, and albumin of 2.9. His UA is negative for urinary tract infection. Head CT scan report reads sinus finding of air fluid level within the left maxillary sinus cigarette air fluid level seen within the left mastoid sinus. Mastoid findings are seen on prior study. Senescent change. No acute intracranial abnormality is identified. Chest x-ray showed no acute intra-cranial abnormality. Patient is being admitted for pancytopenia, generalized weakness and unwitnessed falls. He is DNR/DNI. 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 failure anemia type: pancytopenia, antineoplastic chemotherapy-induced Qualified Code(s): D61.810 - Antineoplastic chemotherapy induced pancytopenia; T45.1X5A - Adverse effect of antineoplastic and immunosuppressive drugs, initial encounter; T45.1X5A - Adverse effect of antineoplastic and immunosuppressive drugs, initial encounter (2) Nasal septal ulcer SNOMED Code(s): 00831512 ICD Code: J34.0 - ABSCESS, FURUNCLE AND CARBUNCLE OF NOSE Status: Acute Priority: High Current Visit: Yes (3) Alzheimer disease SNOMED Code(s): 95676651 ICD Code: G30.9 - ALZHEIMER'S DISEASE, UNSPECIFIED Status: Chronic Priority: Low Current Visit: No Qualifiers: Alzheimer's disease onset: unspecified onset Dementia behavioral disturbance: without behavioral disturbance Qualified Code(s): G30.9 - Alzheimer's disease, unspecified; F02.80 - Dementia in other diseases classified elsewhere without behavioral disturbance; F02.80 - Dementia in other diseases classified elsewhere without behavioral disturbance; F02.80 - Dementia in other diseases classified elsewhere without behavioral disturbance (4) Bradycardia SNOMED Code(s): 15494266 ICD Code: R00.1 - BRADYCARDIA, UNSPECIFIED Status: Chronic Priority: Low Current Visit: No (5) Lymphoma SNOMED Code(s): 327447353 ICD Code: C85.90 - NON-HODGKIN LYMPHOMA, UNSPECIFIED, UNSPECIFIED SITE Status: Chronic Priority: Medium Current Visit: No Qualifiers: Lymphoma type: unspecified type Lymphoma site: multiple regions Qualified Code(s): C85.98 - Non-Hodgkin lymphoma, unspecified, lymph nodes of multiple sites (6) BPH (benign prostatic hyperplasia) SNOMED Code(s): 319254604 ICD Code: N40.0 - BENIGN PROSTATIC HYPERPLASIA WITHOUT LOWER URINRY TRACT SYMP Status: Chronic Priority: Low Current Visit: No Qualifiers: Lower urinary tract symptom presence: unspecified whether lower urinary tract symptoms present Qualified Code(s): N40.0 - Benign prostatic hyperplasia without lower urinary tract symptoms (7) CAD (coronary artery disease) SNOMED Code(s): 95045453 ICD Code: I25.10 - ATHSCL HEART DISEASE OF [place] CORONARY ARTERY W/O ANG PCTRS Status: Chronic Priority: Low Current Visit: No Qualifiers: Coronary Disease-Associated Artery/Lesion type: unspecified vessel or lesion type [place] vs. transplanted heart: [place] heart Associated angina: angina presence unspecified Qualified Code(s): I25.10 - Atherosclerotic heart disease of [place] coronary artery without angina pectoris (8) CHF (congestive heart failure) SNOMED Code(s): 91282706 ICD Code: I50.9 - HEART FAILURE, UNSPECIFIED Status: Chronic Priority: Medium Current Visit: No (9) COPD (chronic obstructive pulmonary disease) SNOMED Code(s): 15220330 ICD Code: J44.9 - CHRONIC OBSTRUCTIVE PULMONARY DISEASE, UNSPECIFIED Status : Chronic Priority: Medium Current Visit: No Qualifiers: COPD type: unspecified COPD Qualified Code(s): J44.9 - Chronic obstructive pulmonary disease, unspecified (10) HLD (hyperlipidemia) SNOMED Code(s): 45206747 ICD Code: E78.5 - HYPERLIPIDEMIA, UNSPECIFIED Status: Chronic Priority: Low Current Visit: No Qualifiers: Hyperlipidemia type: pure hypercholesterolemia Qualified Code(s): E78.00 - Pure hypercholesterolemia, unspecified; E78.0 - Pure hypercholesterolemia (11) HTN (hypertension) SNOMED Code(s): 44415773 ICD Code: I10 - ESSENTIAL (PRIMARY) HYPERTENSION Status: Chronic Priority : Low Current Visit: No Qualifiers: Hypertension type: essential hypertension Qualified Code(s): I10 - Essential (primary) hypertension (12) Hypothyroid SNOMED Code(s): 82851563 ICD Code: E03.9 - HYPOTHYROIDISM, UNSPECIFIED Status: Chronic Priority: Low Current Visit: No Qualifiers: Hypothyroidism type: acquired Qualified Code(s): E03.9 - Hypothyroidism, unspecified - Patient Summary/Data Consults: Consultations 12/31/17 19:11 Consult to Case Management [CONS] Routine Consult to Law Clerk [CONS] Routine Consult to Spiritual Care [CONS] Routine OT Evaluation and Treatment [CONS] Routine PT Evaluation and Treatment [CONS] Routine Labs Pending at D/C: methylmalonic acid Recommended Follow-up Testing/Procedures: Follow-up with primary care provider in 7-10 days, sooner if needed Follow-up with oncology at regularly scheduled interval Hospital Course: Assessment/Plan: Acute: Pancytopenia, Improved - Acute vs Chronic - Low: WBC, RBC, Hgb, Hct, Platelet, other bone marrow cell lines - Folic Acid, Vit B 12 --> WNL; - MMA-->pending - Monitor Hgb--> 7.9: He meets criteria for transfusion: CA patient with ongoing significant nose bleeds, CAD S/p CABG, Pos rectal bleed - Hemoccult pos; Hgb is now at 10 S/p 2 units of PRBC transfusion - Hgb steady at 9.9-->10.1 - Recent transfusion was back in October according to daughter - Dr. 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 Asymptomatic Bradycardia - Cut down Toprol XL to 25 mg po daily--> switch to metoprolol tartrate 25mg BID Vitamin D deficiency - Vitamin D is 25 - Supplement Resolved: S/p Fall - Has had 2-3 unwitnessed fall in the past several days - Risk factors: OA/DJD, Dementia, Insomnia, Impaired Vision and Urinary Incontinence - Was told family is able to take care of him with and [facility]HS as caregivers S/p Epistaxis on Bilateral Nare - S/p radiation therapy - Platelet is 38K-->48K - Has had significant bleed overnight - Consider platelet transfusion to slow down bleed Confusion, back to baseline - Has baseline dementia - Appears worse than normal over past day or so - Have held Restoril due to frequent falls - Patient has had minimal sleep over the past few days - No weakness, gait disturbance, speech difficulty, facial droop - CT negative in ED - Continue to monitor HTN, resolved - Not controlled on admission - He is CCB, ACEI, Imdur and BB - Added low dose HCTZ 12.5 mg po BID and PRN Hydralazine - Controlled now Chronic: Impaired Vision CAD s/p CABG HF with Unknown EF HTN HLD COPD Sleep Apnea Hx/o GI Bleed BPH CKD Urinary Incontinence Back pain OA/DJD Seizure Disorder Hypothyroidism Insomnia Alzheimer's Dementia Skin Cancer S/p Radiation Plan: He remains clinically stable. He breaths better through his nose. Improved confusion today. Continue current treatment Routine AM Labs Fall Precautions Continue PT/OT SW/CM for d/c planning - consider assisted living Additional orders as above Code status: DNR/DNI; PCP: Dr. Reynolds Overall Gwyn did quite well while here. His metoprolol was trimmed due to bradycardia. His BP responded to his home meds and has maintained controlled. His Hgb remained stable after his transfusion. PT has been recommending home with home health. They also suggest using a front-wheeled walker. His vitamin D was found to be low and he was placed on supplementation for this this can be monitored by his primary care provider. He was instructed to take his blood pressure 3 times a day and record this along with his heart rate and bring that along to all appointments. He may require additional changes to his medications. He'll be discharged home today with home health. I met with Gwyn [id number] we discussed his discharge and continue plan of care. He is still quite weak and does have some difficulty with ambulation. He lives in [place] and will be homebound. He reports his does not drive in the winter and he does not drive. He has difficulty getting out of the house. He would benefit from services of residential, [facility], PTT, and a home safety evaluation. This can be monitored by his primary care provider, Dr. Reynolds and he can follow-up or adjust services as necessary. - Patient Instructions Diet: Usual Diet as Tolerated Activity: As Tolerated Driving: Do Not Drive Showering/Bathing: May Shower Notify Provider of: Fever, Increased Pain, Nausea and/or Vomiting ( uncontrollable nose bleeding ) - Discharge Plan Prescriptions/Med Rec: Cholecalciferol (Vitamin D3) [Vitamin D3] 1,000 units PO DAILY #20 tablet Metoprolol Succinate [Toprol XL] 25 mg PO DAILY #20 tab.er Home Medications: Home Meds Isosorbide Mononitrate [Isosorbide Mononitrate ER] 30 mg PO DAILY 05/10/17 [ History] Lisinopril 10 mg PO DAILY 05/10/17 [History] Tamsulosin HCl 0.4 mg PO BID 05/10/17 [History] amLODIPine [Norvasc] 5 mg PO DAILY 05/10/17 [History] Levothyroxine [Synthroid] 88 mcg PO DAILY 10/27/17 [History] Galantamine Hbr [Galantamine HBr] 8 mg PO BID 10/14/17 [History] Temazepam 15 mg PO BEDTIME PRN 10/14/17 [History] Nitroglycerin [Nitrostat] 0.4 mg SL ASDIRECTED PRN 12/03/17 [History] Lidocaine 2% [Xylocaine 2% Jelly] 1 applic BUCCAL 5XDAY 12/31/17 [History] Multivitamin with Minerals [Multivitamins with Minerals] 1 each PO DAILY [History] Mupirocin Oint [Bactroban Oint] 1 applic TOP BID 12/31/17 [History] Dptqnsfv-Twctlhxfoz-Zponnnybh. 1 applic TOP TID 12/31/17 [History] Sodium Chloride [Saline Nasal [place]] 2 sprays NASBOTH BID PRN 12/31/17 [History] Timolol Maleate [Timoptic-XE 0.5% Ophth Gel] 1 drop .ROUTE DAILY 12/31/17 [ History] Cholecalciferol (Vitamin D3) [Vitamin D3] 1,000 units PO DAILY #20 tablet [Rx] Metoprolol Succinate [Toprol XL] 25 mg PO DAILY #20 tab.er 01/05/18 [Rx] Patient Handouts: Bradycardia, Adult Forms: ED Department Discharge Referrals: Steve Reynolds MD [Primary Care Provider] - - Discharge Summary/Plan Comment DC Time >30 min.: Yes (45 mins ) - Patient Data Vitals - Most Recent: Last Vital Signs Temp 97.9 F 01/05/18 07:39 Pulse 57 L 01/05/18 09:40 Resp 20 01/05/18 07:39 BP 112/48 L 01/05/18 09:49 Pulse Ox 93 L 01/05/18 07:39 Weight - Most Recent: 164 lb 9.6 oz I&O - Last 24 hours: Intake & Output 01/04/18 01/05/18 01/05/18 22:59 06:59 14:59 Intake Total 570 550 300 Output Total 525 1150 Balance 45 -600 300 Lab Results - Last 24 hrs: Laboratory Results - last 24 hr 01/05/18 01/05/18 Range/Units 06:00 06:00 WBC 5.98 (4.23-9.07) K/mm3 RBC 3.18 L (4.63-6.08) M/mm3 Hgb 10.2 L (13.7-17.5) gm/L Hct 31.9 L (40.1-51.0) % MCV 100.3 H (79.0-92.2) fl MCH 32.1 (25.7-32.2) pg MCHC 32.0 L (32.2-35.5) g/dl RDW Std Deviation 69.6 H (35.1-43.9) fL Plt Count 41 L (163-337) K/mm3 MPV 11.2 (9.4-12.3) fl Neut % (Auto) 3.6 L (34.0-67.9) % Lymph % (Auto) 66.1 H (21.8-53.1) % [place] % (Auto) 29.9 H (5.3-12.2) % Eos % (Auto) 0.2 L (0.8-7.0) Baso % (Auto) 0.0 L (0.1-1.2) % Neut # (Auto) 0.22 L (1.78-5.38) K/mm3 Lymph # (Auto) 3.95 H (1.32-3.57) K/mm3 [place] # (Auto) 1.79 H (0.30-0.82) K/mm3 Eos # (Auto) 0.01 L (0.04-0.54) K/mm3 Baso # (Auto) 0.00 L (0.01-0.08) K/mm3 Manual Slide Review Abnormal smear Sodium 137 (136-145) mEq/L Potassium 3.9 (3.5-5.1) mEq/L Chloride 102 (98-107) mEq/L Carbon Dioxide 27 (21-32) mEq/L Anion Gap 11.9 (5-15) BUN 23 H (7-18) mg/dL Creatinine 1.1 (0.7-1.3) mg/dL Est Cr Clr Drug Dosing 41.08 mL/min Estimated GFR (MDRD) > 60 (>60) mL/min BUN/Creatinine Ratio 20.9 H (14-18) Glucose 99 (83-115) mg/dL Calcium 8.8 (8.5-10.1) mg/dL Magnesium 1.8 (1.8-2.4) mg/dl Med Orders - Current: Current Medications Hydrocodone Bitart/Acetaminophen ([place] 325-5 Mg) 1 tab PO Q4H PRN PRN Reason: Pain (moderate 4-6) Last Admin: 01/04/18 21:12 Dose: 1 tab Albuterol/Ipratropium (Duoneb 3.0-0.5 Mg/3 Ml) 3 ml NEB Q4H PRN PRN Reason: Shortness Of Breath/wheezing Amlodipine Besylate (Norvasc) 5 mg PO DAILY [facility] Last Admin: 01/05/18 09:49 Dose: Not Given Bisacodyl (Dulcolax) 5 mg PO DAILY PRN PRN Reason: Constipation Cholecalciferol (Vitamin D3) 1,000 units PO DAILY [facility] Last Admin: 01/05/18 09:43 Dose: 1,000 units Docusate Sodium (Colace) 100 mg PO BID PRN PRN Reason: Constipation Last Admin: 01/05/18 05:27 Dose: 100 mg Galantamine Hydrobromide (Razadyne) 8 mg PO BID [facility] Last Admin: 01/05/18 09:43 Dose: 8 mg Hydralazine HCl (Apresoline) 10 mg IVPUSH Q4H PRN PRN Reason: Hypertension Last Admin: 01/03/18 01:06 Dose: 10 mg Hydrochlorothiazide (Hydrochlorothiazide) 12.5 mg PO BIDDIURETIC [facility] Last Admin: 01/05/18 05:27 Dose: 12.5 mg Hydromorphone HCl (Dilaudid) 0.25 mg IVPUSH Q4H PRN PRN Reason: Pain (severe 7-10) Promethazine HCl 6.25 mg/ (Sodium Chloride) 50.25 mls @ 100 mls/hr IV Q6H PRN PRN Reason: Nausea/Vomiting Isosorbide Mononitrate (Imdur) 30 mg PO DAILY [facility] Last Admin: 01/05/18 09:42 Dose: 30 mg Levothyroxine Sodium (Synthroid) 88 mcg PO ACBRK [facility] Last Admin: 01/05/18 05:27 Dose: 88 mcg Lidocaine HCl (Xylocaine 2% Jelly) 5 ml MUCMEM ASDIRECTED PRN PRN Reason: Pain (mild 1-3) Lisinopril (Prinivil) 10 mg PO DAILY [facility] Last Admin: 01/05/18 09:42 Dose: 10 mg Lorazepam (Ativan) 0.25 mg IV Q6H PRN PRN Reason: Anxiety Lorazepam (Ativan) 2 mg IVPUSH Q4H PRN PRN Reason: Seizures Magnesium Sulfate (Pharmacy To Dose - Magnesium Replacement) 0 dose .XX ASDIRECTED PRN PRN Reason: RX TO WATCH MAGNESIUM LEVELS Metoprolol Succinate (Toprol Xl) 25 mg PO DAILY [facility] Last Admin: 01/05/18 09:40 Dose: Not Given Metoprolol Tartrate (Lopressor) 5 mg IVPUSH Q4H PRN PRN Reason: Tachycardia Multivitamins (Thera) 1 each PO DAILY [facility] Last Admin: 01/05/18 09:43 Dose: 1 each Mupirocin (Bactroban Oint) 0 gm TOP BID [facility] Last Admin: 01/05/18 09:41 Dose: 1 applic Neomycin/Polymyxin/Bacitracin (Neosporin Oint) 0 gm TOP TID [facility] Last Admin: 01/05/18 09:43 Dose: Not Given Nitroglycerin (Nitrostat) 0.4 mg SL ASDIRECTED PRN PRN Reason: Chest Pain Ondansetron HCl (Zofran) 4 mg IV Q6H PRN PRN Reason: Nausea/Vomiting Oxymetazoline HCl (Afrin Original 0.05% Nasal [place]) 0 ml TRUDY Q12HR PRN PRN Reason: Congestion Polyethylene Glycol (Miralax) 17 gm PO DAILY PRN PRN Reason: Constipation Potassium Chloride (Pharmacy To Dose - Potassium Replacement) 0 dose .XX ASDIRECTED PRN PRN Reason: RX TO WATCH K LEVELS Senna/Docusate Sodium (Senna Plus) 1 tab PO BID PRN PRN Reason: Constipation Last Admin: 01/04/18 14:54 Dose: 1 tab Sodium Chloride ([place] Nasal [place]) 0 ml NASBOTH BID PRN PRN Reason: Dryness Tamsulosin HCl (Flomax) 0.4 mg PO BID [facility] Last Admin: 01/05/18 09:43 Dose: 0.4 mg Temazepam (Restoril) 15 mg PO BEDTIME PRN PRN Reason: Sleep Last Admin: 01/03/18 22:55 Dose: 15 mg Timolol Maleate (Timoptic 0.5% Ophth Soln) 0 ml EYELF DAILY [facility] Last Admin: 01/05/18 09:49 Dose: 1 drop Discontinued Medications Acetaminophen (Tylenol) 650 mg PO NOW ONE Stop: 12/31/17 15:21 Last Admin: 12/31/17 15:30 Dose: 650 mg Dexamethasone (Dexamethasone) 4 mg IVPUSH ONETIME ONE Stop: 01/01/18 12:53 Last Admin: 01/01/18 14:25 Dose: 4 mg Diphenhydramine HCl (Benadryl) 25 mg IV ONETIME ONE Stop: 01/01/18 12:53 Last Admin: 01/01/18 14:24 Dose: 25 mg Hydromorphone HCl (Dilaudid) 0.25 mg IVPUSH Q4H PRN PRN Reason: Pain (severe 7-10) Sodium Chloride (Normal Saline) 1,000 mls @ 50 mls/hr IV ASDIRECTED [facility] Last Admin: 01/02/18 00:11 Dose: 50 mls/hr Sodium Chloride (Normal Saline) 250 mls @ 100 mls/hr IV ASDIRECTED [facility] Lidocaine HCl (Xylocaine 2% Jelly) 0 ml PO 5XDAY [facility] Last Admin: 01/04/18 14:55 Dose: Not Given Magnesium Oxide (Magnesium Oxide) 400 mg PO ONETIME ONE Stop: 01/05/18 10:01 Last Admin: 01/05/18 09:54 Dose: 400 mg Metoprolol Succinate (Toprol Xl) 50 mg PO DAILY [facility] Last Admin: 01/02/18 10:01 Dose: 50 mg Metoprolol Succinate (Toprol Xl) 25 mg PO DAILY [facility] Last Admin: 01/03/18 09:59 Dose: Not Given Metoprolol Tartrate (Lopressor) 25 mg PO Q12HR [facility] Last Admin: 01/04/18 21:12 Dose: 25 mg Metronidazole (Flagyl) 500 mg PO TID [facility] Last Admin: 01/04/18 10:14 Dose: 500 mg Naproxen (Naprosyn) 375 mg PO Q12HR [facility] Last Admin: 01/04/18 10:12 Dose: Not Given Potassium Chloride (Klor-Con M20) 40 meq PO Q4H [facility] Stop: 01/02/18 22:01 Last Admin: 01/02/18 21:49 Dose: 40 meq *Q Meaningful Use (DIS) - VTE *Q VTE Criteria *Q: - Stroke *Q Stroke Criteria *Q: - AMI *Q AMI Criteria *Q:
[2018-01-05 20:21] VITALS: BP 105/63
== END 2018-01-05 15:24 | disposition home or self-care (01) | DRG 809 ==
LOC: JD.ED 13:14 → JD.MS 16:36
PROVIDERS: ADMIT Internal Medicine; ATTEND Internal Medicine
PROC: 30233N1 Transfusion of Nonautologous Red Blood Cells into Peripheral Vein, Percutaneous Approach (ICD-10-PCS; principal; 2018-01-01)
PROC: 30233R1 Transfusion of Nonautologous Platelets into Peripheral Vein, Percutaneous Approach (ICD-10-PCS; 2018-01-01)
DX: D61.810 Antineoplastic chemotherapy induced pancytopenia (principal); W19.XXXA Unspecified fall, initial encounter; I25.810 Atherosclerosis of coronary artery bypass graft(s) without angina pectoris; I13.0 Hypertensive heart and chronic kidney disease with heart failure and stage 1 through stage 4 chronic kidney disease, or unspecified chronic kidney disease; C85.98 Non-Hodgkin lymphoma, unspecified, lymph nodes of multiple sites; R04.0 Epistaxis; J32.0 Chronic maxillary sinusitis; Z91.81 History of falling; N18.9 Chronic kidney disease, unspecified; I50.9 Heart failure, unspecified; Z87.891 Personal history of nicotine dependence; I25.2 Old myocardial infarction; E78.5 Hyperlipidemia, unspecified; J44.9 Chronic obstructive pulmonary disease, unspecified; G47.30 Sleep apnea, unspecified; R00.1 Bradycardia, unspecified; C85.90 Non-Hodgkin lymphoma, unspecified, unspecified site; R41.0 Disorientation, unspecified; R19.5 Other fecal abnormalities; G47.00 Insomnia, unspecified; N40.1 Benign prostatic hyperplasia with lower urinary tract symptoms; N39.498 Other specified urinary incontinence; C76.0 Malignant neoplasm of head, face and neck; G89.29 Other chronic pain; M54.9 Dorsalgia, unspecified; M19.90 Unspecified osteoarthritis, unspecified site; E03.9 Hypothyroidism, unspecified; G40.909 Epilepsy, unspecified, not intractable, without status epilepticus; G30.9 Alzheimer's disease, unspecified; F02.80 Dementia in other diseases classified elsewhere, unspecified severity, without behavioral disturbance, psychotic disturbance, mood disturbance, and anxiety; Z66 Do not resuscitate; Z88.6 Allergy status to analgesic agent; Z79.899 Other long term (current) drug therapy
CPT/HCPCS: 30901; 36415; 70450; 71045; 80053; 81001; 84484; 85025; 85610; 93005; 99285; A9270; 36430; 80048; 82306; 82607; 82746; 83735; 83921; 84439; 84443; 86140; 86850; 86900; 86901; 86922; 97110-GP; 97112-GP; 97116-GP; 97163-GP; 97165-GO; J0360; J1100; J1200; J7040; P9016; P9034